=== PATIENT | female | born 1965 | race Caucasian/White ===

== ENCOUNTER 2020-12-08 15:31 | Inpatient (IN) | payer MEDICARE, MEDICAID, SELFPAY ==
[2020-12-08 16:18] VITALS: BP 166/89; PULSE 83; RESP 18; TEMP 37; O2SAT 99; BMI 22.3
[2020-12-08 18:03] VITALS: BP 178/93; PULSE 89; RESP 24; O2SAT 100
--- NOTE | 2020-12-08 18:03 | ED.RN ---
PT C/O NUMBNESS AND TINGLING TO BOTH LEGS AND FEET
--- NOTE | 2020-12-08 18:13 | CT_ITS ---
STUDY: CTA HEAD AND NECK WITH CONTRAST REASON FOR EXAM: Female, 55 years old. Cephalgia, neck pain RADIATION DOSAGE (If Supplied By Facility): CTDIvol = ( 26.99 ) mGy, DLP = ( 1566.47 ) mGycm TECHNIQUE: CT angiography was performed with a multi-detector CT scanner. Data acquisition was obtained from the skull base through the vertex following intravenous administration of IV 100mL Isovue-370. MIP images were reconstructed from the axial data set. Post-processing of the angiographic images was performed, with multiplanar reformation and 3D reconstruction. Individualized dose optimization techniques were used for this CT. COMPARISON: No relevant priors. FINDINGS: Motion artifact degrades anatomic detail. Normal bilateral petrous carotid arteries. Normal right cavernous carotid artery with a normal supraclinoid bifurcation. Normal left cavernous carotid artery with a normal supraclinoid bifurcation. Normal right A1 segments of the anterior cerebral artery. Normal left A1 segments of the anterior cerebral artery. Normal intact anterior communicating artery (ACOM). Normal bilateral A2 segments of the anterior cerebral arteries. Normal right M1 and M2 segments of the middle cerebral arteries, with a normal M1 bifurcation. Normal left M1 and M2 segments of the middle cerebral arteries, with a normal M1 bifurcation. Normal right posterior communicating artery (PCOM). Normal left posterior communicating artery (PCOM). Normal bilateral vertebral arteries. Normal basilar artery with a normal basilar bifurcation. The visualized bilateral superior cerebellar (SCA) arteries are normal. Normal bilateral P1, P2 and visualized P3 segments of the posterior cerebral arteries. There is no demonstrated aneurysm of the [place]. There is no demonstrated abnormality of the visualized brain. AORTIC ARCH: Normal visualized aortic arch. Normal origins of the brachiocephalic, left common carotid, and left subclavian arteries. RIGHT CAROTID ARTERIES: Normal right common carotid artery (CCA). Normal right common carotid bulb. Normal origin of the right internal carotid (ICA) artery without a hemodynamically significant stenosis. Normal visualized cervical portion of the right internal carotid artery. Normal origin of the right external carotid artery (ECA). LEFT CAROTID ARTERIES: Normal left common carotid artery (CCA). Normal left common carotid bulb. Normal origin of the left internal carotid (ICA) artery without a hemodynamically significant stenosis. Normal visualized cervical portion of the left internal carotid artery. Normal origin of the left external carotid artery (ECA). VERTEBRAL ARTERIES: Normal bilateral vertebral arteries. CT/CTA Head AND Neck W/ Contrast IMPRESSION: Within normal limits CTA Head and neck with contrast. Electronically Signed: Maranda Galloway MD at 20:26 EDT Tel , Service support ,
--- NOTE | 2020-12-08 18:13 | EKG12_ITS ---
Test Reason : BODY ACHES/BP Blood Pressure : / mmHG Vent. Rate : 080 BPM Atrial Rate : 080 BPM P-R Int : 142 ms QRS Dur : 080 ms QT Int : 398 ms P-R-T Axes : 061 019 038 degrees QTc Int : 459 ms Normal sinus rhythm Consider Left ventricular hypertrophy Poor R wave progression Abnormal ECG Confirmed by FALGUNI SUAREZ, KARLA ([id number]), book editor MERCEDES PHELPS ([id number]) on 12/11/2020 12:58:06 PM Referred By: JUNIE Confirmed By:KARLA MONTES DE OCA MD
--- NOTE | 2020-12-08 18:15 | EX.ED.VIS.HA ---
HPI History of Present Illness Chief Complaint: Headache Detail of Chief Complaint: Headache that started yesterday. Informant: patient Narrative Narrative: Patient presents to the emergency department complaint of a headache that started yesterday. Patient states is been continuous since yesterday somewhat diffuse and into her neck. Patient states that she lifted some pop about 2 weeks ago and strained her shoulder and she is been having pain in her neck and numbness in the fourth and fifth finger since that time. Patient was sent for outpatient x-rays of her shoulder and neck yesterday but no results as of yet. Patient has remote history of migraines. She does complain of photophobia. Patient presented via EMS today and was noted to be quite hypertensive and she was having dry heaves and vomiting. Patient denies falls or head injuries. She denies recent illness. Prior similar symptoms: No PFSH PFSH Allergy/AdvReac Type Severity Reaction Status Date / Time No Known Allergies Allergy Verified 12/08/20 16:21 Social History Smoking Status: Former smoker ROS ROS ED Constitutional Constitutional ED: Reports systems reviewed and no addt'l complaints, except as documented; Denies body ache(s), change in weight or chills Eyes Eyes: Denies acute decrease in peripheral vision, change in vision, double vision or loss of vision ENT ENT ED: Reports none; Denies ear pain, lip swelling, loss taste/smell, neck pain, otalgia or sore throat Cardiovascular Cardiovascular: Reports none; Denies abdominal pain, chest pain with activity, leg edema, lightheadedness, palpitations, rapid heart rate or syncope Respiratory/Chest Respiratory/Chest: Reports none; Denies change in mental status, dry cough, dyspnea, hemoptysis, shortness of breath at rest or shortness of breath with exertion Gastrointestinal Gastrointestinal: Reports none; Denies abdominal pain, change in stool character, diarrhea, hematemesis, hematochezia, melena, rectal bleeding or vomiting Genitourinary Genitourinary ED: Reports none; Denies abdominal discomfort, anuria, dysuria, genital pain or polyuria Musculoskeletal Musculoskeletal: Reports none and neck pain; Denies arthralgias, back pain, difficulty walking, extremity pain, muscle weakness or myalgias Integumentary Reports none; Denies abscess or rash Neurologic Neurologic: Reports none, headache(s) and paresthesias; Denies abnormal gait, confusion, focal weakness, frequent falls, loss of vision, numbness, radicular pain, vertigo or weakness Psychiatric Psychiatric: Reports systems reviewed and no addt'l complaints, except as documented and none; Denies behavioral changes, confusion, difficulty concentrating, hallucinations, suicidal ideation, tactile hallucinations or visual hallucinations Endocrine Endocrinology: Denies none, cold intolerance, excessive sweating, fatigue or heat intolerance Hematologic/Lymphatic Hematologic/Lymphatic: Reports none; Denies anemia, easy bleeding or easy bruising Allergic/Immunologic Allergic/Immunologic ED: Denies as per HPI, none, lip swelling, mouth swelling, throat swelling, tongue swelling or hives EXAM Physical Exam Const Vital Signs: 12/08/20 16:18 12/08/20 18:03 Temperature 98.6 F Temperature Source Temporal Pulse Rate 83 89 Respiratory Rate 18 24 H Blood Pressure 166/89 H 178/93 H Blood Pressure Mean 114 121 Pulse Ox 99 100 Oxygen Delivery Method Room Air Room Air Positive well nourished and well developed General Appearance ED: well developed and NAD HEENT Reports TM's clear and moist mucous membranes normocephalic and atraumatic; Negative for trauma or tenderness Tympanic Membrane ED: Yes TM's clear Eyes PERRL and EOMs intact bilaterally General Eye ED: Negative for pale conjunctiva or scleral icterus Neck no lymphadenopathy, supple and no JVD Neck Narrative: Patient has some diffuse tenderness over the C-spine and cervical paraspinal musculature bilaterally. General: tenderness Chest Wall inspection of chest normal and palpation of chest normal Chest: Negative for tenderness Resp normal respiratory effort and clear to auscultation bilaterally Effort and Inspection: Negative for respiratory distress or pain with movement Auscultation: Negative for rhonchi, wheezes or diminished lung sounds Cardio regular rate, regular rhythm, S1 normal heart sound, S2 normal heart sound and no murmurs Peripheral Pulses: pulses 2+ throughout GI normal to inspection, nondistended, normoactive bowel sounds, soft to palpation, non-tender, non-distended and no masses Back/Spine no CVA tenderness and no thoracic nor lumbar tenderness Extremity normal to inspection General Extremety ED: Negative for edema General Extremity: Negative for edema Neuro oriented x3, CN's II-XII intact bilaterally, no sensory deficits noted and gait normal Neuro Narrative: Finger-nose and heel garcia testing within normal limits, negative Romberg, negative for drift, fundi benign Sensorium / Orientation: awake, alert, oriented to person, oriented to place and oriented to time Motor Exam: strength 5/5 throughout and strength abnormal Psych mental status grossly normal Skin no rashes or lesions noted and no wounds MDM MDM MDM Narrative Medical decision making narrative: IV line established on arrival. Patient was medicated with Reglan, Benadryl, Toradol, and a liter of fluid. Initially her headache did improve but now is starting to return again and currently rates it a 4 5 out of 10. Her blood pressure continues to remain elevated with systolics in the 190s and diastolics in the low 100s. Patient was started on labetalol 20 mg IV. Case will be discussed with hospitalist evaluate for admission. I suspect her white blood cell count likely is elevated due to recent steroid usage. Patient just finished her steroids after being on it for 15 days. The pain in her neck may be related to radiculopathy with paresthesias in the right arm. Patient may need further imaging such as possibly MRI to evaluate further. Lab Data Attestation: I reviewed the patient's lab results. Labs: Laboratory Results - last 24 hr 12/08/20 12/08/20 18:43 18:43 WBC 20.2 H RBC 4.32 Hgb 12.2 Hct 38.9 MCV 90.0 MCH 28.2 MCHC 31.4 L RDW Std Deviation 47.8 H RDW Coeff of Ankit 14.4 Plt Count 249 MPV 11.0 Immature Gran % (Auto) 0.500 Neut % (Auto) 88.3 H Lymph % (Auto) 5.9 L [place] % (Auto) 4.9 Eos % (Auto) 0.1 Baso % (Auto) 0.3 Absolute Neuts (auto) 17.8 H Absolute Lymphs (auto) 1.18 Nucleated RBC % 0 Sodium 136 Potassium 3.7 Chloride 105 Carbon Dioxide 25.0 Anion Gap 6 BUN 17 Creatinine 0.50 L Estim Creat Clear Calc 111.07 Est GFR (MDRD) Af Amer 163 Est GFR (MDRD) Non-Af 135 BUN/Creatinine Ratio 33.7 H Glucose 128 H Calcium 9.3 Troponin I High Sens 11 Radiography Diagnostic Testing: Radiology Impression Head/Neck CTA 12/08/20 18:13 IMPRESSION: Within normal limits CTA Head and neck with contrast. Electronically Signed: Maranda Galloway MD at 20:26 EDT Tel , Service support , EKG Initial EKG: Attestation: I personally reviewed and interpreted this EKG as follows: Comments: Sinus rhythm with a ventricular rate of 80 bpm with LVH Discharge Plan Dx/Rx/DC Orders Clinical Impression: Cephalalgia, Hypertension, Acute neck pain, Cervical radiculopathy Disposition Disposition: Acute Care [facility]
[2020-12-08 18:57] LABS: Absolute Lymphocyte Count 1.18 X10^3/uL (0.83-4.51); Absolute Neutrophil Count 17.8 X10^3/uL (2.0-7.7); Basophil# 0.07 X10^3/uL; Basophil% 0.3 % (0-1); Eosinophil# 0.03 X10^3/uL; Eosinophils% 0.1 % (0-5); Hematocrit 38.9 % (37-47); Hemoglobin 12.2 g/dL (12.0-15.0); Lymphocyte # 1.18 X10^3/ul (0.83-4.51); Lymphocyte % 5.9 % (19-41); Mean Corp Hgb Conc 31.4 g/dL (32-36); Mean Corpuscular Hgb 28.2 pg (27.0-32.0); Monocyte# 0.99 X10^3/uL; Monocyte% 4.9 % (0-10); NRBC Flagged by Analyzer 0 % (0-5); Neutrophil # 17.78 X10^3/uL (2.7-7.7); Neutrophil % 88.3 % (47-70); Platelet Count 249 K/mm3 (150-450); RBC Distribution Width CV 14.4 % (11.6-14.6); RBC Distribution Width SD 47.8 fl (35.1-43.9); Red Blood Count 4.32 M/mm3 (4.2-5.4); White Blood Count 20.2 K/mm3 (4.4-11.0)
[2020-12-08] MEDS: Ketorolac 15 MG/ML Vial IV (19:00)
[2020-12-08] MEDS: DiphenhydrAMINE 50 MG/ML Syringe 25 MG IV (19:00)
[2020-12-08] MEDS: Metoclopramide 10 MG/2 ML Vial IV (19:01)
[2020-12-08 19:11] LABS: Anion Gap 6 (5-15); BUN 17 mg/dL (7-18); BUN/Creat Ratio 33.7 RATIO (10-20); Calcium,Total 9.3 mg/dL (8.5-10.1); Chloride 105 mmol/L (98-107); EST Glomerular Filtration Rate 135 mL/min (>60); Est Glom Filt Rate - Afr Amer 163 mL/min (>60); Estimated Creatinine Clearance 111.07 ml/min; Glucose 128 mg/dL (74-106); Potassium 3.7 mmol/L (3.5-5.1); Sodium Level 136 mmol/L (136-145); Troponin-I HS 11 pg/mL (3.0-54.0)
--- NOTE | 2020-12-08 20:56 | PCM.HP.STD ---
HPI - General General Date of Admission: 12/08/20 Date of Service: 12/08/20 Chief Complaint: Headache, light and sound sensitivity associated HPI Narrative The patient is a 55 y/o F w/ PMHx: Anxiety and Depression, Hx Migraines, Chronic COPD, Former Heavy Tobacco use, Hx Vulvar Dysplasia who presents to the [facility] ED on 12/08/20 with history of onset headache starting the day prior, continuous, diffuse radiating into her neck noting that she had actually lifted some heavy cans of pop approximately 2 weeks ago and at that time it felt as though she strained her neck and shoulder with onset of numbness into the 4th and 5th finger since that time with outpatient ongoing evaluation with plain film of the shoulder neck the day prior but unclear results with phonophobia and photophobia associated in addition to nausea, emesis and elevated blood pressures during this timeline. She was recently placed on steroids of note. Patient reports that she has had a history of migraines prior primarily posterior and on the top, throbbing in nature with photophobia and phonophobia similar to current status although this is more severe and has been many years since her last migraine. Work-up in the ED included T 98.6, heart rate 83, BP 166/89, respiratory rate 18, 99% on room air, CBC with WBC 20.2, hemoglobin 12.2, platelet 249 with a left shift, BMP with glucose 128 otherwise not marked appearing, high-sensitivity troponin XI, CTA head and neck unremarkable with no acute intracranial findings and no evidence of significant stenosis or dissection. In the ED patient ministered Reglan, labetalol 20 mg IV x1, Toradol, Benadryl and morphine. [facility] Medical History (Updated 12/09/20 @ 04:[address] Юлия Miranda MD) Anemia Anxiety Cancer COPD (chronic obstructive pulmonary disease) Depression Former smoker Intractable migraine Kidney stones Migraines Osteoporosis Home Medications escitalopram oxalate 20 mg PO DAILY 12/08/20 [History Last Taken 12/08/20] hydrocodone-acetaminophen 1 tab PO Q8H PRN PRN 12/08/20 [History Last Taken 12/08/20] hydroxyzine HCl 25 mg PO TID PRN PRN 12/08/20 [History Last Taken 12/08/20] tizanidine 4 mg PO TID PRN 12/08/20 [History Last Taken Unknown] Allergy/AdvReac Type Severity Reaction Status Date / Time No Known Allergies Allergy Verified 12/08/20 16:21 adopted Surgical History (Updated 12/09/20 @ 04:[address] Юлия Miranda MD) History of back surgery History of vulvectomy S/P breast lumpectomy Social History (Updated 12/09/20 @ 04:[address] Юлия Miranda MD) household members: children Smoking Status: Former smoker how long ago did patient quit smoking: Quit July 2020, smoked prior 1-2 ppd cigarette tobacco use since teen. alcohol intake: never substance use type: does not use ROS ROS Narrative Admission Review of Systems: CONSTITUTIONAL: No weight loss, fever, chills, + weakness or fatigue. HEENT: + Photophobia, phonophobia migraine. Eyes: No visual loss, blurred vision, double vision or yellow sclerae. Ears, Nose, Throat: No hearing loss, sneezing, congestion, runny nose or sore throat. SKIN: No rash or itching, lesions, wounds. CARDIOVASCULAR: No chest pain, chest pressure or chest discomfort, palpitations, edema, orthopnea, syncopal events. RESPIRATORY: No shortness of breath, cough or sputum, wheezing, hemoptysis. GASTROINTESTINAL: No anorexia, nausea, vomiting or diarrhea, abdominal pain, melena, BRBPR. GENITOURINARY: No dysuria, frequency, urgency or retention. NEUROLOGICAL: + Migraine headache with photophobia and phonophobia, right-sided radiculopathy with digit paresthesia, No dizziness, syncope, paralysis, ataxia, focal weakness, change in bowel or bladder control, seizure. MUSCULOSKELETAL: No muscle, back pain, joint pain or stiffness. HEMATOLOGIC: + anemia, bleeding or bruising. LYMPHATICS: No enlarged nodes. No history of splenectomy. PSYCHIATRIC: + history of depression or anxiety. ENDOCRINOLOGIC: No reports of sweating, cold or heat intolerance. No polyuria or polydipsia. ALLERGIES: No history of asthma, hives, eczema or rhinitis. Vital Signs Vital Signs Vital Signs: 12/08/20 16:18 12/08/20 18:03 Temperature 98.6 F Temperature Source Temporal Pulse Rate 83 89 Respiratory Rate 18 24 H Blood Pressure 166/89 H 178/93 H Blood Pressure Mean 114 121 Pulse Ox 99 100 Oxygen Delivery Method Room Air Room Air Weight Weight: 130 lb Body Mass Index (BMI) 22.3 Physical Exam Narrative Physical Examination: General: Awake, alert, oriented x 3 and cooperative, laying in the ED bed, room dark, fatigued appearing. Skin: Normal color, normal turgor, no icterus, no cyanosis. HEENT: AT/NC, EOMI, PERRLA, dry MM, no carotid bruits or JVD noted. Lungs: Diminished, greater bases, moderate effort, no rales, ronchi or wheezing. Heart: Regular rate and rhythm; no gallop, rub audible. Abdomen: Soft, NTTP, ND, normal BS, no HSM. Extremities: No cyanosis, clubbing, or edema. Neurological: Patient awake, alert, oriented as noted, cognitive function intact; pupils equally reactive to light and accommodation, cranial nerves II-XII grossly normal, moving all 4 extremities, no focal deficits, strength moderately global decrease secondary to acute presentation. Psychiatric: Affect appears fatigued, uncomfortable appearing, no acute evidence of depressive or anxiety feelings. Results Lab / Micro Data Result Diagrams: 12/08/20 18:43 12/08/20 18:43 Labs: Laboratory Results - last 24 hr 12/08/20 18:43: WBC 20.2 H, RBC 4.32, Hgb 12.2, Hct 38.9, MCV 90.0, MCH 28.2, MCHC 31.4 L, RDW Std Deviation 47.8 H, RDW Coeff of Ankit 14.4, Plt Count 249, MPV 11.0, Immature Gran % (Auto) 0.500, Neut % (Auto) 88.3 H, Lymph % (Auto) 5.9 L, [place] % (Auto) 4.9, Eos % (Auto) 0.1, Baso % (Auto) 0.3, Absolute Neuts (auto) 17.8 H, Absolute Lymphs (auto) 1.18, Nucleated RBC % 0 12/08/20 18:43: Sodium 136, Potassium 3.7, Chloride 105, Carbon Dioxide 25.0, Anion Gap 6, BUN 17, Creatinine 0.50 L, Estim Creat Clear Calc 111.07, Est GFR (MDRD) Af Amer 163, Est GFR (MDRD) Non-Af 135, BUN/Creatinine Ratio 33.7 H, Glucose 128 H, Calcium 9.3, Troponin I High Sens 11 Radiology Impression Head/Neck CTA 12/08/20 18:13 IMPRESSION: Within normal limits CTA Head and neck with contrast. Electronically Signed: Maranda Galloway MD at 20:26 EDT Tel , Service support , Assessment & Plan Assessment/Plan (1) Cervical radiculopathy: (2) Intractable migraine: QUALIFIERS: Migraine type: unspecified Status migrainosus presence: with status migrainosus Qualified Code(s): G43.911 - Migraine, unspecified, intractable, with status migrainosus PLAN: The patient is a 55 y/o F w/ PMHx: Anxiety and Depression, Hx Migraines, Chronic COPD, Former Heavy Tobacco use, Hx Vulvar Dysplasia who presents to the [facility] ED on 12/08/20 with history of onset headache starting the day prior, continuous, diffuse radiating into her neck with onset of photophobia, phonophobia, nausea, emesis and elevated blood pressures with incidentally recently noted paresthesias to the fourth and fifth digits following heavy lifting weeks prior. 1. Acute Persistent Intractable Migraine: Will admit to medical surgical floor, hold narcotic therapy give this may exacerbate migraine, initiate IV VPA 500mg Q6 hours, IV Decadron 4mg Q6 hours, IV Toradol 30mg every 8x5 doses in addition to oral Neurontin 100 3 times daily with meals initially with escalation as needed. Given timeline remotely of prior migraine and significant presentation will plan to obtain MRI of the brain as well as cervical MRI given reported history of atypical paresthesias in addition. If patient significantly improves then could consider discharge to home on Depakote ER 500 nightly, Neurontin regimen x1 week, Medrol Dosepak as well as as needed Imitrex with neurology follow-up. 2. Paresthesias, suspicion for Cervical Radiculopathy: Possible associated with recent acute presentation #1 secondary to discomfort, pain, pending MRI brain and cervical spine as noted, continue treatment as noted above. 3. Elevated BP without HTN diagnosis: Suspected secondary to pain with #1, #2, will continue treatment as noted and monitor BPs, if appropriate will add oral regimen, PRN IV hydralazine in the interim. Maintain on telemetry given notable elevations. 4. Chronic COPD: Patient is on any routine inhalers, PRN albuterol, HOB, IS parameters. 5. Former heavy tobacco use: Encourage continued tobacco cessation, quit in July with prior to this 1 to 2 pack/day since she been a teenager. 6. History of vulvar dysplasia: Patient with partial vulvectomy with repeat surgery recently and per pathology need for return per discussion with patient. 7. Anxiety and depression: We will continue patient home escitalopram regimen. 8. DVT prophylaxis: SCDs, Lovenox. Charges/Coding Visit Charges Inpatient E&M: 73630 Init Hosp L3
[2020-12-08] MEDS: Morphine 4 MG/ML Syringe IV (21:10)
[2020-12-08] MEDS: Labetalol (Prefilled) 20 MG/4 ML IV (21:10)
[2020-12-08 21:24] VITALS: BP 187/99; PULSE 84; PULSE 85; RESP 12; TEMP 36.6; O2SAT 94
--- NOTE | 2020-12-08 21:40 | ED.RN ---
Localized rash after Morphine was given. PT educated, ice pack applied.
[2020-12-08 21:59] VITALS: BP 144/83; PULSE 83; RESP 18; O2SAT 97
--- NOTE | 2020-12-08 22:30 | PCS.PANDOC ---
PANDEMIC DOCUMENTATION INITIATED: Date: 12/08/2020 Time: 2229
[2020-12-08 22:36] VITALS: BMI 22.3
[2020-12-08 22:46] VITALS: BP 179/91; PULSE 83; RESP 16; TEMP 36.9; O2SAT 99
[2020-12-08] MEDS: dexAMETHasone 4 MG/ML Vial IV (23:06)
[2020-12-08] MEDS: Famotidine 20 MG Tablet PO (23:06)
[2020-12-08] MEDS: Gabapentin 100 MG Capsule PO (23:06)
[2020-12-08] MEDS: Ketorolac 30 MG/ML Syringe IV (23:06)
[2020-12-08] MEDS: 0.9% Normal Saline 1,000 ML 500 ML IV (23:15)
[2020-12-08] MEDS: 0.9% Normal Saline 1,000 ML 150 ML IV (23:21)
[2020-12-08 23:58] LABS: Troponin-I HS 25 pg/mL (3.0-54.0)
[2020-12-09] VITALS (12 sets, daily range): BP systolic 158–174; BP diastolic 90–92; PULSE 86–125; RESP 16–18; TEMP 36.9–37.3; O2SAT 96–99
[2020-12-09 01:58] LABS: Troponin-I HS 22 pg/mL (3.0-54.0)
[2020-12-09] MEDS: Ketorolac 30 MG/ML Syringe IV ×3 (05:53→21:11)
[2020-12-09] MEDS: dexAMETHasone 4 MG/ML Vial IV ×4 (05:53→23:14)
[2020-12-09] MEDS: 0.9% Saline Lock 10 ML Syringe IV ×4 (05:54→23:14)
--- NOTE | 2020-12-09 05:55 | MRI_ITS ---
STUDY: MRI CERVICAL SPINE WITHOUT CONTRAST REASON FOR EXAM: Female, 55 years old. Radiculopathy TECHNIQUE: Standardized fat and water weighted pulse sequences were obtained in the sagittal and axial planes. COMPARISON: None FINDINGS: Normal foramen magnum and brainstem-cervical cord junction. Normal craniovertebral junction. Normal anterior atlantoaxial articulation. Normal odontoid process. There is straightening of the normal cervical lordosis. Normal vertebral bodies and posterior osseous elements. C2-3: Normal endplates. Normal disc height, signal and morphology. Normal central canal and intervertebral neural foramina. C3-4: Normal endplates. Normal disc height, signal and morphology. Normal central canal and intervertebral neural foramina. C4-5: Normal endplates. Normal disc height, signal and morphology. Normal central canal and intervertebral neural foramina. C5-6: Mild broad disc osteophyte complex produces mild spinal stenosis. No neural foraminal stenosis. C6-7: Mild bilobed disc osteophyte complex produces mild spinal stenosis. No neural foraminal stenosis. C7-T1: Moderate size right paracentral and preforaminal disc protrusion produces moderate spinal stenosis with abutment of the right hemicord and mild right neural foraminal stenosis. Normal cervical cord. Normal visualized soft tissue structures. MRI/Spine Cervical (Routine) IMPRESSION: Multilevel degenerative changes, as described above. Electronically Signed: Les Reyes MD at 14:48 EDT Tel , Service support ,
--- NOTE | 2020-12-09 05:55 | MRI_ITS ---
STUDY: MRI BRAIN WITHOUT CONTRAST REASON FOR EXAM: Female, 55 years old. migraine TECHNIQUE: Standardized multiplanar fat and water weighted pulse sequences were obtained. COMPARISON: None. FINDINGS: Normal size of the ventricles and extra-axial spaces for the patient''s age. Normal white matter tracts of the supratentorial brain. Subtle hyperintensity of multiple gyri of the superior parietal lobes which may represent encephalitis, best seen on inversion recovery weighted image 20.. There is no evidence for recent intracranial ischemia or other cause of cytotoxic edema on diffusion weighted imaging (DWI). Normal T2* images of the brain without demonstrated susceptibility artifact. There is no demonstrated hemosiderin stain. Normal bilateral basal ganglia. Normal thalami. There is no extra-axial fluid accumulation. Normal flow voids within the major intracranial circulation suggesting patency by spin echo criteria. Normal sella turcica, pituitary gland, infundibular stalk, optic chiasm and hypothalamus. Normal tectal plate and pineal gland. Normal midbrain, demetrius and medulla. Normal cerebellum. Normal basal cisterns. Normal bilateral temporal bones. Normal bilateral internal auditory canals. No demonstrated orbital abnormality, within the constraints of a routine brain study. Normal visualized paranasal sinuses. Normal calvarium and skull base. Normal visualized soft tissue structures. Normal visualized upper cervical spine. 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 Electronically Signed: Les Reyes MD at 14:44 EDT Tel , Service support ,
[2020-12-09] MEDS: hydrALAZINE 20 MG/ML Vial 10 MG IV ×2 (05:58→17:13)
[2020-12-09 06:24] LABS: Absolute Lymphocyte Count 0.36 X10^3/uL (0.83-4.51); Basophil# 0.02 X10^3/uL; Basophil% 0.2 % (0-1); Hematocrit 36.9 % (37-47); Hemoglobin 11.5 g/dL (12.0-15.0); Lymphocyte # 0.36 X10^3/ul (0.83-4.51); Lymphocyte % 3.1 % (19-41); Mean Corp Hgb Conc 31.2 g/dL (32-36); Mean Corpuscular Hgb 28.5 pg (27.0-32.0); Mean Corpuscular Volume 91.3 fL (81-99); Monocyte# 0.09 X10^3/uL; Monocyte% 0.8 % (0-10); NRBC Flagged by Analyzer 0 % (0-5); Neutrophil # 11.04 X10^3/uL (2.7-7.7); Neutrophil % 95.4 % (47-70); POSITIVE DIFFERENTIAL YES; Platelet Count 251 K/mm3 (150-450); RBC Distribution Width CV 14.7 % (11.6-14.6); RBC Distribution Width SD 49.9 fl (35.1-43.9); Red Blood Count 4.04 M/mm3 (4.2-5.4); White Blood Count 11.6 K/mm3 (4.4-11.0)
[2020-12-09 06:45] LABS: Differential Indicated SCAN CRITERIA MET
[2020-12-09 06:57] LABS: AST(SGOT) 28 U/L (15-37); Alanine Aminotransfer ALT/SGPT 30 U/L (13-56); Albumin, Serum 3.5 g/dL (3.2-5.0); Alkaline Phosphatase 109 U/L (45-117); Anion Gap 6 (5-15); BUN 12 mg/dL (7-18); BUN/Creat Ratio 15.5 RATIO (10-20); Calcium,Total 9.1 mg/dL (8.5-10.1); Chloride 108 mmol/L (98-107); Creatinine, Serum 0.78 mg/dL (0.55-1.02); EST Glomerular Filtration Rate 82 mL/min (>60); Est Glom Filt Rate - Afr Amer 100 mL/min (>60); Globulin 3.5 g/dL (2.2-4.2); Glucose 158 mg/dL (74-106); Potassium 4.8 mmol/L (3.5-5.1); Sodium Level 139 mmol/L (136-145); Troponin-I HS 20 pg/mL (3.0-54.0)
[2020-12-09 07:16] LABS: Differential Comment SCANNED
--- NOTE | 2020-12-09 10:05 | NURSING ---
pt to MRI
--- NOTE | 2020-12-09 10:45 | NURSING ---
pt remains off unit in MRI
[2020-12-09] MEDS: Gabapentin 100 MG Capsule PO ×2 (11:17→17:03)
[2020-12-09] MEDS: 0.9% Normal Saline 1,000 ML 150 ML IV (11:17)
[2020-12-09] MEDS: Enoxaparin 40 MG/0.4 ML Syringe SC (11:17)
[2020-12-09] MEDS: Famotidine 20 MG Tablet PO ×2 (11:18→21:13)
--- NOTE | 2020-12-09 11:33 | NURSING ---
@ 11:15. pt returned from MRI
--- NOTE | 2020-12-09 12:40 | CASEMGMT ---
ROYAL KAN assessment: Face to Face with patient for initial transition planning/care coordination assessment. ROYAL KAN introduced self and role at [facility], pt voices understanding and consents to assessment. Pt is sitting up in bed in no distress. Pt is A/Ox4 and answers all questions appropriately. Care providers, pharmacy, and demographics verified. Presentation: Pt started with migraine last pm, sensitive to light Admitting dx: Migraine, intractable PCP: Gricel Specialists: Johanne, pain management; Zaire onc at [facility] Preferred Pharmacy: [facility] Insurance: [employer] Prescription Benefit: [employer] Living Will/HPOA: Pt states does not have LW/HPOA and declines AD info. LNOK: Teresita Hurst, daughter Living Arrangements: Pt states lives with adult son who has CP in 1 story home and states no concerns at home. Pt states is independent with ADL's. Transportation: Pt states drives self and states no transportation concerns. DME/HHC: Pt states no current DME or need for any further DME. Pt states no hx of HHC or SNF in the past. Pt states no concerns with going home at time of discharge. Pt is on disability. Pt states quit smoking cigarettes in July and occasionally drinks ETOH. Pt states no further concerns/needs. CM to follow for any further discharge planning/needs. Advised pt to ask for CM if any further questions/concerns/needs arise, voices understanding. Pt Goal: Home Plan: [place] ROYAL KAN
--- NOTE | 2020-12-09 15:43 | PN.HOSP_ITS ---
Subjective Subjective Patient was seen and examined today, MRI of the brain was read out as showing encephalitis of the parietal lobes, I have requested that another radiologist over read this MRI. MRI of the cervical spine shows evidence of degenerative disc disease most severe at C7-T1 with a disc protrusion at that level. Patient still has a headache at this time, her blood pressure has also been elevated. I have decided to place the patient on a small dose of blood pressure medication. Objective Data Objective Data Vital Signs: Vital Signs Temp Pulse Resp BP Pulse Ox 99.1 F 86 18 172/91 H 98 12/09/20 11:41 12/09/20 11:41 12/09/20 11:41 12/09/20 11:41 12/09/20 11:41 Oxygen Delivery Method Room Air Weight: 58.967 kg Body Mass Index (BMI) 22.3 Intake & Output: Intake and Output for Last 24 Hours 12/07/20 12/08/20 12/09/20 23:59 23:59 23:59 Intake Total 50 / 50 1815.0 / 1815.0 Balance 50 / 50 1815.0 / 1815.0 Lab / Micro Data Result Diagrams: 12/09/20 05:25 12/09/20 05:25 Labs: Laboratory Results - last 24 hr 12/08/20 18:43: WBC 20.2 H, RBC 4.32, Hgb 12.2, Hct 38.9, MCV 90.0, MCH 28.2, MCHC 31.4 L, RDW Std Deviation 47.8 H, RDW Coeff of Ankit 14.4, Plt Count 249, MPV 11.0, Immature Gran % (Auto) 0.500, Neut % (Auto) 88.3 H, Lymph % (Auto) 5.9 L, [place] % (Auto) 4.9, Eos % (Auto) 0.1, Baso % (Auto) 0.3, Absolute Neuts (auto) 17.8 H, Absolute Lymphs (auto) 1.18, Nucleated RBC % 0 12/08/20 18:43: Sodium 136, Potassium 3.7, Chloride 105, Carbon Dioxide 25.0, A nion Gap 6, BUN 17, Creatinine 0.50 L, Estim Creat Clear Calc 111.07, Est GFR (MDRD) Af Amer 163, Est GFR (MDRD) Non-Af 135, BUN/Creatinine Ratio 33.7 H, Glucose 128 H, Calcium 9.3, Troponin I High Sens 11 12/08/20 23:20: Troponin I High Sens 25 12/09/20 01:30: Troponin I High Sens 22 12/09/20 05:25: WBC 11.6 H, RBC 4.04 L, Hgb 11.5 L, Hct 36.9 L, MCV 91.3, MCH 28.5, MCHC 31.2 L, RDW Std Deviation 49.9 H, RDW Coeff of Ankit 14.7 H, Plt Count 251, MPV 11.0, Immature Gran % (Auto) 0.500, Neut % (Auto) 95.4 H, Lymph % (Auto) 3.1 L, [place] % (Auto) 0.8, Eos % (Auto) 0.0, Baso % (Auto) 0.2, Absolute Neuts (auto) 11.0 H, Absolute Lymphs (auto) 0.36 L, Nucleated RBC % 0, Differential Comment SCANNED 12/09/20 05:25: Sodium 139, Potassium 4.8, Chloride 108 H, Carbon Dioxide 25.0, Anion Gap 6, BUN 12, Creatinine 0.78, Estim Creat Clear Calc 71.20, Est GFR (MDRD) Af Amer 100, Est GFR (MDRD) Non-Af 82, BUN/Creatinine Ratio 15.5, Glucose 158 H, Calcium 9.1, Total Bilirubin 0.50, AST 28, ALT 30, Alkaline Phosphatase 109, Troponin I High Sens 20, Total Protein 7.0, Albumin 3.5, Globulin 3.5, Albumin/Globulin Ratio 1.0 Radiography Diagnostic Testing: Radiology Impression Head/Neck CTA 12/08/20 18:13 IMPRESSION: Within normal limits CTA Head and neck with contrast. 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 Electronically Signed: Les Reyes MD at 14:44 EDT Tel , Service support , Cervical Spine MRI 12/09/20 05:55 IMPRESSION: Multilevel degenerative changes, as described above. Electronically Signed: Les Reyes MD at 14:48 EDT Tel , Service support , Physical Exam Const alert, oriented x3, no apparent distress and healthy appearing General Appearance: cooperative, well kempt and well developed Orientation / Consciousness: awake, oriented to person, oriented to place and oriented to time HEENT normocephalic, head/scalp atraumatic and moist oral mucous membranes Head and Scalp: normocephalic Eyes PERRL, EOMs intact bilaterally and conjunctivae normal Neck nuchal rigidity, supple, no JVD, thyroid normal and no carotid bruits General: trachea midline Resp normal respiratory effort, no retractions, no use of accessory muscles and clear to auscultation bilaterally Auscultation: Negative for rales, rhonchi or wheezes Cardio regular rate, regular rhythm, S1 normal heart sound, S2 normal heart sound, no murmurs, no rub and no gallops GI normal to inspection, nondistended, normoactive bowel sounds, soft to palpation, non-tender and non-distended Extremity no clubbing, cyanosis or edema Skin no rashes or lesions noted General Skin Exam: no breakdown Neuro oriented x3, CN's II-XII intact bilaterally, no focal motor deficits and no sensory deficits noted Sensorium / Orientation: awake and alert Speech: speech normal Psych thought process normal and affect normal Assessment & Plan Assessment/Plan (1) Cephalalgia: PLAN: 1. Migraine cephalgia-patient will continue present treatment, I do not believe the patient has clinical viral or bacterial encephalitis #2 degenerative disc disease of cervical spine-patient states she sees pain management #3 essential hypertension-I have decided to place the patient on metoprolol 25 mg twice daily, this may help her migraine cephalgia. Charges/Coding Visit Charges Inpatient E&M: 78305 Subs Hosp L2
[2020-12-09] MEDS: Metoprolol Tartrate 25 MG Tablet PO ×2 (17:03→21:13)
[2020-12-09] MEDS: Ondansetron 4 MG/2 ML Vial IV (17:13)
[2020-12-09] MEDS: Acetaminophen 325 MG Tablet 650 MG PO (17:16)
--- NOTE | 2020-12-09 17:36 | NURSING ---
updated pts daughter by phone after pt requested i call her
[2020-12-09] MEDS: Temazepam 15 MG Capsule PO (21:13)
[2020-12-09] MEDS: proMETHazine 25 MG/ML Syringe 12.5 MG IM (23:41)
[2020-12-10] VITALS (7 sets, daily range): BP systolic 134–166; BP diastolic 86–95; PULSE 88–102; RESP 16–18; TEMP 36.7–37.4; O2SAT 97–98
[2020-12-10] MEDS: hydrALAZINE 20 MG/ML Vial 10 MG IV (05:57)
[2020-12-10] MEDS: 0.9% Saline Lock 10 ML Syringe IV ×2 (05:58→06:28)
[2020-12-10] MEDS: Ketorolac 30 MG/ML Syringe IV (05:59)
[2020-12-10] MEDS: dexAMETHasone 4 MG/ML Vial IV ×2 (06:28→12:01)
[2020-12-10] MEDS: Gabapentin 100 MG Capsule PO ×2 (10:10→11:54)
[2020-12-10] MEDS: Enoxaparin 40 MG/0.4 ML Syringe SC (10:10)
[2020-12-10] MEDS: Metoprolol Tartrate 25 MG Tablet PO (10:10)
[2020-12-10] MEDS: Famotidine 20 MG Tablet PO (10:11)
[2020-12-10] MEDS: Acetaminophen/Butalbital/Caffe 1 Tablet 2 TABLET PO (11:53)
--- NOTE | 2020-12-10 14:56 | PCM.DC ---
Discharge Instructions Diet Discharge Diet: No restrictions Activity Discharge Activity: Return to Normal Activity Weight Bearing Status: Full weight bearing Follow Up Care Test Results: Test results from this visit will be discussed in further detail at your follow-up appointment, if applicable. Discharge Plan Admission Admit Date/Time: 12/08/20 21:01 Primary Reason for Your Visit: migrane Attending Provider: Raul Chapman Primary Care Provider: Luis Felipe Monsalve Discharge Orders/Prescriptions Prescriptions: New gabapentin 100 mg Capsule 100 mg PO TIDCM Qty: 15 RF: 0 metoprolol tartrate 25 mg Tablet 50 mg PO BID Qty: 14 RF: 0 divalproex [Depakote] 500 mg tablet,delayed release (DR/EC) 1,000 mg PO QHS Qty: 14 RF: 0 ondansetron HCl [Zofran] 4 mg tablet 4 mg PO Q6H PRN (Reason: nausea and vomiting) Qty: 10 RF: 0 dexamethasone 4 mg tablet 4 mg PO DAILY Qty: 5 RF: 0 Continued tizanidine 4 mg tablet 4 mg PO TID PRN (Reason: Muscle Pain) RF: 0 hydrocodone-acetaminophen 7.5-325 mg tablet 1 tab PO Q8H PRN PRN (Reason: Pain) RF: 0 hydroxyzine HCl 25 mg tablet 25 mg PO TID PRN PRN (Reason: .) RF: 0 escitalopram oxalate 20 mg tablet 20 mg PO DAILY RF: 0 Referrals / Follow Up: Luis Felipe Monsalve MD [Primary Care Provider] - Within 1 Week Care Physician,No Primary [NON-STAFF] - Disposition Disposition (needs filled in before D/C Order can be placed): Home, Self Care
--- NOTE | 2020-12-10 18:46 | DS.PCM_ITS ---
Providers Date of Admission: 12/08/20 Date of Discharge: 12/10/20 Primary Care Physician: Dr. Luis Felipe Monsalve MD Reason For Visit: INTRACTABLE MIGRAINE, SUSPECTED CONCURENT CERVICAL Diagnosis Discharge Diagnosis (1) Cephalalgia: Status: Acute Code(s): R51.9 - Headache, unspecified Plan: 1. Intractable migraine cephalgia #2 degenerative disc disease of the cervical spine #3 chronic pain syndrome secondary to degenerative disc disease of the cervical spine #4 essential hypertension Medications at Discharge Home Medications escitalopram oxalate 20 mg PO DAILY 12/08/20 hydrocodone-acetaminophen 1 tab PO Q8H PRN PRN 12/08/20 hydroxyzine HCl 25 mg PO TID PRN PRN 12/08/20 tizanidine 4 mg PO TID PRN 12/08/20 dexamethasone 4 mg PO DAILY #5 tab 12/10/20 divalproex [Depakote] 1,000 mg PO QHS #14 tab 12/10/20 gabapentin 100 mg PO TIDCM #15 cap 12/10/20 metoprolol tartrate 50 mg PO BID #14 tab 12/10/20 ondansetron HCl [Zofran] 4 mg PO Q6H PRN #10 tab 12/10/20 Hospital Course Operations None Procedures None Summary of Care Provided Minutes Spent on Discharge: 30 Hospital Course: This 55-year-old white female was seen in the emergency room at [facility] with a chief complaint of migraine cephalgia, her blood pressure was also noted to be elevated. Patient was on no blood pressure medications. Patient also complained of neck pain, she had been seeing pain management as an outpatient for her neck pain and was on pain medications. Work-up in the emergency room included a CTA of her head neck which was within normal limits, patient was given medication for her migraine without relief. Patient was admitted to [place] [id number], placed on IV Depakote, given Neurontin, and IV Decadron. Patient underwent an MRI of the brain which was initially read out as showing areas suspicious for encephalitis, I requested that the MRI of the brain be over read by another radiologist who did not agree with the first interpretation and felt that there was some chronic changes present on the patient's MRI, it was recommended that the patient's MRI be repeated in 6 months to a year. Patient's MRI of the cervical spine showed degenerative disc disease with an area of disc protrusion at C7/T1. Patient continued to have headache during her hospital stay, I added metoprolol for her blood pressure. Even though the patient stated that she had a headache, during the time of my examinations, patient was resting quietly and did not seem in any distress. On 12/10/2020, patient was seen and examined: On examination she appeared in good health and spirits, she does not appear to be in any distress. Vital signs as documented. Skin warm and dry and without overt rashes. Neck without JVD, thyroid appears normal, trachea is midline, neck is supple. Lungs clear, normal air movement was noted. Heart exam notable for regular rhythm, normal sounds and absence of murmurs, rubs or gallops. Abdomen unremarkable and without evidence of organomegaly, masses, or abdominal aortic enlargement, bowel sounds are present in all 4 quadrants, no abdominal tenderness was noted. Extremities nonedematous, no cyanosis was noted, no clubbing was noted. Neuro: Cranial nerves II through XII are grossly intact, no focal motor deficits were noted, sensation to light touch and pinprick is intact, motor exam 5/5 throughout. Psych: Patient is alert and oriented x3, she does not appear anxious or depressed, she does not appear agitated. Patient appeared stable for discharge on 12/10/2020, patient stated that she had an appointment with her pain management doctor on 12/11/2020, I encouraged her to make that appointment and to also follow-up with her PCP. 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 Electronically Signed: Les Reyes MD at 14:44 EDT Tel , Service support , ADDENDUM: 12/09/20 1950 D/C Instructions Discharge Diet: No restrictions Weight Bearing Status: Full weight bearing Meaningful Use Info Meaningful Use Diagnoses (Choose all that apply): None applicable Discharge Plan Admission Admit Date/Time: 12/08/20 21:01 Primary Reason for Your Visit: manpreetane Attending Provider: Raul Chapman Primary Care Provider: Luis Felipe Monsalve Discharge Orders/Prescriptions Prescriptions: New gabapentin 100 mg Capsule 100 mg PO TIDCM Qty: 15 RF: 0 metoprolol tartrate 25 mg Tablet 50 mg PO BID Qty: 14 RF: 0 divalproex [Depakote] 500 mg tablet,delayed release (DR/EC) 1,000 mg PO QHS Qty: 14 RF: 0 ondansetron HCl [Zofran] 4 mg tablet 4 mg PO Q6H PRN (Reason: nausea and vomiting) Qty: 10 RF: 0 dexamethasone 4 mg tablet 4 mg PO DAILY Qty: 5 RF: 0 Continued tizanidine 4 mg tablet 4 mg PO TID PRN (Reason: Muscle Pain) RF: 0 hydrocodone-acetaminophen 7.5-325 mg tablet 1 tab PO Q8H PRN PRN (Reason: Pain) RF: 0 hydroxyzine HCl 25 mg tablet 25 mg PO TID PRN PRN (Reason: .) RF: 0 escitalopram oxalate 20 mg tablet 20 mg PO DAILY RF: 0 Referrals / Follow Up: Luis Felipe Monsalve MD [Primary Care Provider] - Within 1 Week Care Physician,No Primary [NON-STAFF] - Disposition Disposition (needs filled in before D/C Order can be placed): Home, Self Care Charges/Coding Visit Charges Inpatient E&M: 17240 Disch Hosp
== END 2020-12-10 16:10 | disposition home or self-care (01) | DRG 102 ==
LOC: ED 21:17 → MS3 21:33
PROVIDERS: Admitting Provider Family Medicine; Emergency Provider Emergency Medicine; PCP Family Medicine; Visit Provider Internal Medicine
DX: G43.911 Migraine, unspecified, intractable, with status migrainosus (principal); G04.90 Encephalitis and encephalomyelitis, unspecified; J44.9 Chronic obstructive pulmonary disease, unspecified; F32.9 Major depressive disorder, single episode, unspecified; F41.9 Anxiety disorder, unspecified; I10 Essential (primary) hypertension; M81.0 Age-related osteoporosis without current pathological fracture; G89.4 Chronic pain syndrome; M50.20 Other cervical disc displacement, unspecified cervical region; Z87.891 Personal history of nicotine dependence; Z87.412 Personal history of vulvar dysplasia
CPT/HCPCS: 36415; 70496; 70498; 70551; 72141; 80048; 80053; 84484; 85025; 93005; 99285; 99406; J7030; Q9967; A4216; J2405

== ENCOUNTER → 2025-02-01 | Outpatient (CLI) | payer MEDICARE, MEDICAID, SELFPAY ==
--- NOTE | 2025-02-01 15:02 | MRI_ITS ---
PROCEDURE: SPINE LUMBAR (ROUTINE) 02/01/2025 REASON FOR EXAM: RADICULOPATHY LUMBAR REGION TECHNIQUE: Procedure Code: MRISPL Modality: MR Procedure: SPINE LUMBAR (ROUTINE) COMPARISON: None. FINDINGS: Vertebrae: Modic changes type 1 at the opposite endplates of L3-L4. Preserved in height. Alignment: Retrolisthesis L3 on L4 by 3 mm. Retrolisthesis L4 on L5 by 2 mm. Conus Medullaris: Unremarkable. L1-2: Right paracentral disc protrusion measures 2 mm. No significant foraminal or canal stenosis. L2-3: No significant foraminal or canal stenosis. L3-4: Disc desiccation. Disc bulge asymmetric to the left. Facet joint arthropathy. Moderate left and mild right foramina stenosis. Mild canal stenosis. L4-5: Disc desiccation. Disc bulge. Status post left laminotomy. Severe bilateral foramina stenosis and mass-effect upon the exiting bilateral L4 nerves. Mild canal stenosis. L5-S1: Disc desiccation. Disc bulge. Facet arthropathy. Severe bilateral foramina stenosis. Sacrum: Unremarkable. MRI/Spine Lumbar (Routine) IMPRESSION: Degenerate changes predominantly for severe bilateral foramina stenosis at L4-L 5 and L5-S1 with mass-effect upon the exiting nerves. No significant canal stenosis. Reading Location: [id number]
--- OUTSIDE RECORDS SUMMARY | 2025-02-01 19:12 | XMS RPT_ITS | CCD ---
Author Organization [facility] Care Team Providers Care Water Purifier Name Role Phone GEORGE SUAREZ, LUIS FELIPE Primary Care Physician PHYSICIAN, PUNEET Primary Care Physician Unavailab jeison YORK DO, ELLIOTT Primary Care Physician YORK DO, ELLIOTT Attending Unavailable YORK DO, ELLIOTT Primary Care Unavailable YORK DO, ELLIOTT Attending Unavailable YORK DO, ELLIOTT Primary Care Unavailable YORK DO, ELLIOTT Attending Unavailable YORK DO, ELLIOTT Primary Care Unavailable YORK DO, ELLIOTT Attending Unavailable YORK DO, ELLIOTT Primary Care Unavailable YORK DO, ELLIOTT Attending Unavailable YORK DO, ELLIOTT Primary Care Unavailable YORK DO, ELLIOTT Attending Unavailable YORK DO, ELLIOTT Primary Care Unavailable YORK DO, ELLIOTT Attending Unavailable YORK DO, ELLIOTT Primary Care Unavailable JUVE SUAREZ, NERISSA Primary Care Physician DAE SUAREZ, GIFTY Attending Unavailable JUVE SUAREZ, NERISSA Primary Care Unavailable LISA SUAREZ, DR JARQUIN Attending Unavailmatt AN MD, NERISSA Primary Care Unavailable MAVERICK ELLIS DO Attending Unavailable JUVE SUAREZ, NERISSA Primary Care Unavailable JUVE SUAREZ, NERISSA Primary Care Unavailable DARLEEN SUAREZ, DR APRYL Rob Attending Unavailab jeison AN MD, NERISSA Primary Care Unavailable DARLEEN SUAREZ, DR APRYL Rob Attending Unavailab jeison AN MD, NERISSA Primary Care Unavailable GIFTY PEARL MD Attending Unavailable JUVE SUAREZ, NERISSA Primary Care Unavailable NERISSA AN MD Attending Unavailable JUVE SUAREZ, NERISSA Primary Care Unavailable NERISSA AN MD Attending Unavailable CORTEZ JOSE MD Attending Unavailabl grant AN MD, NERISSA Primary Care Unavailable JUVE SUAREZ, NERISSA Primary Care Unavailable NERISSA AN MD Attending Unavailable JUVE SUAREZ, NERISSA Primary Care Unavailable GIFTY PEARL MD Attending Unavailable Allergies Allergy Classification Reported Allergen(s) Allergy Type Date of Onset Reaction(s) Facility (6 sources) Labetalol; Translations: [labetalol] Drug Allergy [facility] Comment on above: Hives Medications Current Medications Medication Drug Class(es) Dates Sig (Normalized) Sig (Original) acetaminophen 500 mg / diphenhydrAMINE hydrochloride 25 mg oral tablet (5 sources) Histamine-1 Receptor Antagonist Start: 2 take 1 tablet by mouth once daily at bedtime as needed for sleep Tylenol PM Extra Strength oral tablet Dose = 1 tab(s), Oral, qHS, PRN Sleep / Insomnia Start Date: 09/23/21 Status: Ordered amoxicillin 875 mg / clavulanate 125 mg oral tablet (2 sources) Penicillin-class Antibacterial Start: 2 End: 2 take 1 tablet by mouth every twelve hours amoxicillin-clavu lanate 875 mg-125 mg oral tablet 1 tab(s), Oral, q12h, X 6 day(s), # 12 tab(s), 0 Refill(s), 10/03/21 15:01:00 EDT, Pharmacy: [place] [id number] [address], 160, cm, 09/23/21 22:23:00 EDT, Height, 61.4 Start Date: 09/27/21 Stop Date: 10/03/21 Status: Ordered ciprofloxacin 500 mg oral tablet (1 source) Quinolone Antimicrobial Start: 2 End: 2 Cipro 500 mg oral tablet Dose : 500 mg = 1 tab(s), Oral, q12h, Take with a probiotic, X 10 day(s), # 20 tab(s), 0 Refill(s), 08/29/21 23:24:00 EDT, 61.5 Start Date: 08/19/21 Stop Date: 08/29/21 Status: Ordered dicyclomine hydrochloride 10 mg oral capsule (1 source) Anticholinergic Start: 2 End: 2 dicyclomine 10 mg oral capsule Dose : 10 mg = 1 cap(s), Oral, QID, # 20 cap(s), 0 Refill(s) Start Date: 08/19/21 Stop Date: 08/24/21 Status: Ordered hydroCHLOROthiazide 12.5 mg / lisinopril 10 mg oral tablet (2 sources) Thiazide Diuretic, Angiotensin Converting Enzyme Inhibitor Start: 4 take 1 tablet by mouth once daily hydrochlorothiazi de-lisinopril 12.5 mg-10 mg oral tablet Dose = 1 tab(s), Oral, Daily, # 30 tab(s), 0 Refill(s) Start Date: 02/16/24 Status: Ordered hydrOXYzine hydrochloride 25 mg oral tablet (5 sources) Antihistamine Start: 2 hydrOXYzine hydrochloride 25 mg oral tablet Dose : 25 mg = 1 tab(s), Oral, TID, PRN as needed for anxiety Start Date: 09/23/21 Status: Ordered ibuprofen 600 mg oral tablet (2 sources) Nonsteroidal Anti-inflammatory Drug Start: 1 ibuprofen 600 mg oral tablet Dose : 600 mg = 1 tab(s), Oral, q6hr, PRN as needed for pain, # 30 tab(s), 1 Refill(s), Pharmacy: [facility] [place] [id number] [address], 165.1, cm, 08/30/20 12:10:00 EDT, Height, kg, 08/30/20 12:10:00 EDT, Dosing Weight Start Date: 08/30/20 Status: Ordered metroNIDAZOLE 500 mg oral tablet (1 source) Nitroimidazole Antimicrobial Start: 2 End: 2 metroNIDAZOLE 500 mg oral tablet Dose : 500 mg = 1 tab(s), Oral, q8h, X 10 day(s), # 30 tab(s), 0 Refill(s), 08/29/21 23:25:00 EDT, 61.5 Start Date: 08/19/21 Stop Date: 08/29/21 Status: Ordered Multivitamin preparation (2 sources) Start: 3 take 1 tablet by mouth once daily Multivitamin Dose = 1 tab(s), Oral, Daily, 0 Refill(s) Start Date: 02/08/13 Status: Ordered ondansetron 4 mg oral tablet (2 sources) Serotonin-3 Receptor Antagonist Start: 2 End: 2 Zofran 4 mg oral tablet Dose : 4 mg = 1 tab(s), Oral, q8h, PRN Nausea/Vomiting, # 15 tab(s), 0 Refill(s), 10/03/21 13:00:00 EDT, Pharmacy: [facility] [place] [id number] [address], 160, cm, 09/23/21 22:23:00 EDT, Height Start Date: 09/28/21 Stop Date: 10/03/21 Status: Ordered tiZANidine 4 mg oral tablet (7 sources) Central alpha-2 Adrenergic Agonist Start: 1 tiZANidine 4 mg oral tablet Dose : 4 mg = 1 tab(s), Oral, QID, PRN Muscle spasm, 0 Refill(s) Start Date: 08/09/20 Status: Ordered Completed/Discontinued Medications Medication Drug Class(es) Dates Sig (Normalized) Sig (Original) acetaminophen 325 mg / HYDROcodone bitartrate 7.5 mg oral tablet (7 sources) Opioid Agonist Start: 08-09-2020 acetaminophen-hydr ocodone 325 mg-7.5 mg oral tablet Dose = 1 tab(s), Oral, q6hr, 0 Refill(s), 61.4 Start Date: 08/09/20 Status: Ordered Problems Active Problems Problem Classification Problem Date Documented Da te Episodic/Chronic Abdominal pain (1 source) Generalized abdominal tenderness; Translations: [Generalized abdominal tenderness] Episodic Asthma (8 sources) Asthma; Translations: [Unspecified asthma, uncomplicated] 08-31-2013 Chronic Comment on above: Uses inhaler PRN Bacterial infection; unspecified site (1 source) Infection due to Clostridium perfringens; Translations: [Clostridium perfringens [C. perfringens] as the cause of diseases classified elsewhere] Episodic Blindness and vision defects (8 sources) Visual impairment; Translations: [Functional visual loss] 08-31-2013 Chronic Comment on above: left eye Chronic obstructive pulmonary disease and bronchiectasis (15 sources) Chronic obstructive lung disease; Translations: [Pulmonary emphysema] 02-10-2013 Chronic Deficiency and other anemia (8 sources) Anemia; Translations: [Anemia, unspecified] 08-31-2013 Episodic Diverticulosis and diverticulitis (1 source) Diverticula of intestine; Translations: [Diverticulitis of intestine, part unspecified, without perforation or abscess without bleeding] Chronic Essential hypertension (3 sources) Essential hypertension; Translations: [Essential (primary) hypertension] Onset: 02-16-2024 Chronic Fluid and electrolyte disorders (1 source) Dehydration; Translations: [Dehydration] Episodic Genitourinary symptoms and ill-defined conditions (8 sources) Urinary incontinence; Translations: [Unspecified urinary incontinence] 02-08-2013 Chronic Genitourinary symptoms and ill-defined conditions (8 sources) Urgent desire to urinate; Translations: [Urgency of urination] 02-08-2013 Episodic Headache; including migraine (8 sources) Migraine; Translations: [Migraine, unspecified, not intractable, without status migrainosus] 02-08-2013 Chronic Mood disorders (8 sources) Depressive disorder; Translations: [Depression, unspecified] 02-08-2013 Chronic Osteoarthritis (7 sources) Arthritis 02-08-2013 Chronic Osteoporosis (8 sources) Osteoporosis; Translations: [Primary osteoporosis] 05-03-2014 Chronic Other circulatory disease (7 sources) Difficult venous access 09-08-2015 Episodic Other female genital disorders (7 sources) Lesion of vulva 05-03-2014 Episodic Other gastrointestinal disorders (1 source) Irritable bowel syndrome; Translations: [Irritable bowel syndrome without diarrhea] Chronic Other injuries and conditions due to external causes (1 source) Systemic inflammatory response syndrome; Translations: [Systemic inflammatory response syndrome (SIRS) of non-infectious origin without acute organ dysfunction] Episodic Other lower respiratory disease (7 sources) Dyspnea on exertion 02-08-2013 Episodic Other non-traumatic joint disorders (1 source) Shoulder joint pain; Translations: [Pain in unspecified shoulder] Onset: 02-16-2024 Episodic Other upper respiratory infections (1 source) Acute pharyngitis, unspecified; Translations: [Acute pharyngitis, unspecified] Onset: 10-07-2024 Episodic Residual codes; unclassified (7 sources) Chronic pain 04-26-2014 Episodic Residual codes; unclassified (8 sources) Insomnia; Translations: [Insomnia, unspecified] 08-31-2013 Episodic Skin and subcutaneous tissue infections (1 source) Cellulitis, unspecified; Translations: [Cellulitis, unspecified] Onset: 10-07-2024 Episodic Spondylosis; intervertebral disc disorders; other back problems (7 sources) Intervertebral disc prolapse 08-31-2013 Chronic Spondylosis; intervertebral disc disorders; other back problems (7 sources) Backache 02-08-2013 Episodic Unclassified (7 sources) Condyloma 05-03-2014 Unclassified (7 sources) Eye glasses, device (physical object) 08-31-2013 Comment on above: reading only Unclassified (7 sources) Entire neck (body structure) 02-08-2013 Comment on above: PAIN Unclassified (7 sources) Partial vulvectomy 08-31-2013 Past or Other Problems Problem Classification Problem Date Documented Date Episodic/Chronic Biliary tract disease (2 sources) Calculus of gallbladder without cholecystitis without obstruction; Translations: [Calculus of gallbladder without cholecystitis without obstruction] Onset: 05-07-2024 Episodic Calculus of urinary tract (7 sources) Urolith Onset: 08-20-2013 08-31-2013 Episodic Deficiency and other anemia (2 sources) Anemia, unspecified; Translations: [Anemia, unspecified] Onset: 02-24-2024 Episodic Immunizations and screening for infectious disease (4 sources) Encounter for screening for other viral diseases; Translations: [Encounter for screening for human immunodeficiency virus [HIV]] Onset: 05-07-2024 Episodic Other nutritional; endocrine; and metabolic disorders (2 sources) Body mass index (BMI) 19.9 or less, adult; Translations: [Body mass index [BMI] 19.9 or less, adult] Onset: 01-21-2023 Episodic Other nutritional; endocrine; and metabolic disorders (2 sources) Abnormal weight loss; Translations: [Abnormal weight loss] Onset: 01-21-2023 Episodic Other screening for suspected conditions (not mental disorders or infectious disease) (2 sources) Other specified abnormal findings of blood chemistry; Translations: [Other specified abnormal findings of blood chemistry] Onset: 02-04-2023 Episodic Viral infection (1 source) Disease caused by 2019-nCoV; Translations: [COVID-19] Results Test Name Value Interpretation Reference Range Facility .Auto Diffon 11-30-2024 Basophil, Absolute 0.1 10 3/mcL Normal 0.0-0.3 [facility] Comment on above: Performed By: #### G FR, CBC, ADIFF, ANEU, MDW, PBNP, TROPHS, BMP #### [facility] [address] [place] [id number] Basophils/100 WBC (Bld) 1.3 % Normal 0.0-2.5 [facility] Comment on above: Performed By: #### G FR, CBC, ADIFF, ANEU, MDW, PBNP, TROPHS, BMP #### [address] [address] Eosinophil, Absolute 0.2 10 3/mcL Normal 0.0-0.7 [facility] Comment on above: Performed By: #### G FR, CBC, ADIFF, ANEU, MDW, PBNP, TROPHS, BMP #### [address] [address] Eosinophils/100 WBC (Bld) 3.4 % Normal 0.0-6.0 [facility] Comment on above: Performed By: #### G FR, CBC, ADIFF, ANEU, MDW, PBNP, TROPHS, BMP #### [address] [address] Lymphocyte, Absolute 1.6 10 3/mcL Normal 0.9-4.3 [facility] Comment on above: Performed By: #### G FR, CBC, ADIFF, ANEU, MDW, PBNP, TROPHS, BMP #### [address] [address] Lymphocytes/100 WBC (Bld) 23.6 % Normal 20.0-40.0 [facility] Comment on above: Performed By: #### G FR, CBC, ADIFF, ANEU, MDW, PBNP, TROPHS, BMP #### [address] [address] Monocyte, Absolute 0.6 10 3/mcL Normal 0.1-1.4 [facility] Comment on above: Performed By: #### G FR, CBC, ADIFF, ANEU, MDW, PBNP, TROPHS, BMP #### [address] [address] Monocytes/100 WBC (Bld) 8.8 % Normal 2.0-13.0 [facility] Comment on above: Performed By: #### G FR, CBC, ADIFF, ANEU, MDW, PBNP, TROPHS, BMP #### [address] [address] Neutrophils/100 WBC (Bld) 62.9 % Normal 50.0-75.0 [facility] Comment on above: Performed By: #### G FR, CBC, CAYDEN, JUSTINA DODSON, LUZ MARIA, SORAYA VÁZQUEZ #### [address] [address] .GFRon 11-30-2024 Estimated Glomerular Filtration Rate 104 ml/min/1.73sqm Normal [facility] Comment on above: Result Comment: Stages of Chronic Kidney Disease (CKD) Stage Description eGFR(ml/min/1.73 sq.m.) CKD 1 Normal kidney function or >=90 normal kindney function with possible kidney damage (ex. Proteinuria) CKD 2 Kidney damage with mild loss 60-89 of kidney function CKD 3a Mild to moderate loss of kidney 45-59 function CKD 3b Moderate to severe loss of 30-44 of kindey function CKD 4 Severe loss of kidney function 15-29 CKD 5 Kidney failure <15 Note: (go live 2024) the eGFR calculation was updated to the 2020 CKD-EPI creatinine equation without a race factor to calculate the eGFR results. Performed By: #### G FR, CBC, CAYDEN, JUSTINA DODSON, LUZ MARIA, SORAYA VÁZQUEZ #### [address] [address] .NEUABSon 11-30-2024 Neutrophil, Absolute 4.2 10 3/mcL Normal 2.3-8.1 [facility] Comment on above: Performed By: #### G FR, CBC, CAYDEN, JUSTINA DODSON, LUZ MARIA, KATHIE, BMP #### [address] [address] A1Con 11-30-2024 Glucose [Mass/Vol] 117 mg/dL Normal [facility] Comment on above: Result Comment: Alethea mated Average Glucose calculated by equation ((28.7xA1C)-46.7) Estimated average glucose (eAG) is a calculated value from Hemoglobin A1C and is community health program representative of the average blood glucose level in the last 2-3 month period. Normal range: less than 114 mg/dL Performed By: #### G FR, CBC, CAYDEN, IVORY, MDW, PBNP, TROPHS, BMP #### [address] [address] HbA1c (Bld) [Mass fraction] 5.7 % Normal 4.0-6.0 [facility] Comment on above: Performed By: #### G FR, CBC, ADIFF, ANEU, MDW, PBNP, TROPHS, BMP #### [address] [address] [facility] 11-30-2024 BUN/Creatinine Ratio 31.7 ratio High 10.0-22.0 [facility] Comment on above: Performed By: #### G FR, CBC, ADIFF, ANEU, MDW, PBNP, TROPHS, BMP #### [place] [address] Calcium [Mass/Vol] 10.1 mg/dL Normal 8.7-10.4 [facility] Comment on above: Performed By: #### G FR, CBC, ADIFF, ANEU, MDW, PBNP, TROPHS, BMP #### [address] [address] Chloride [Moles/Vol] 102 mmol/L Normal 98-110 [facility] Comment on above: Performed By: #### G FR, CBC, ADIFF, ANEU, MDW, PBNP, TROPHS, BMP #### [address] [address] CO2 [Moles/Vol] 32 mmol/L Normal 22-32 [facility] Comment on above: Performed By: #### G FR, CBC, ADIFF, ANEU, MDW, PBNP, TROPHS, BMP #### [address] [address] Creatinine [Mass/Vol] 0.60 mg/dL Normal 0.50-1.20 [facility] Comment on above: Result Comment: Test ing performed on vufind analyzer using enzymatic creatinine methodology. Performed By: #### G FR, CBC, ADIFF, ANEU, MDW, PBNP, TROPHS, BMP #### [address] [address] Electrolyte Balance 5.0 mEq/L Normal 4.0-15.0 [facility] Comment on above: Performed By: #### G FR, CBC, ADIFF, IVORY, MDW, PBNP, TROPHS, BMP #### [address] [address] Glucose [Mass/Vol] 105 mg/dL Normal 70-110 [facility] Comment on above: Performed By: #### G FR, CBC, ADIFF, ANEU, MDW, PBNP, TROPHS, BMP #### [address] [address] Potassium [Moles/Vol] 4.5 mmol/L Normal 3.5-5.0 [facility] Comment on above: Performed By: #### G FR, CBC, ADIFF, ANEU, MDW, PBNP, TROPHS, BMP #### [address] [address] Sodium [Moles/Vol] 139 mmol/L Normal 136-145 [facility] Comment on above: Performed By: #### G FR, CBC, ADIFF, ANEU, MDW, PBNP, TROPHS, BMP #### [address] [address] Urea nitrogen [Mass/Vol] 19.0 mg/dL Normal 8.0-22.0 [facility] Comment on above: Performed By: #### G FR, CBC, ADIFF, IVORY, MDW, PBNP, TROPHS, BMP #### [address] [address] CBCon 11-30-2024 Erythrocyte distribution width (RBC) [Ratio] 13.9 % Normal 11.5-15.5 [facility] Comment on above: Performed By: #### G FR, CBC, ADIFF, IVORY, MDW, PBNP, TROPHS, BMP #### [address] [address] Hematocrit (Bld) [Volume fraction] 32.5 % Low 34.0-46.0 [facility] Comment on above: Performed By: #### G FR, CBC, ADIFF, ANEU, MDW, PBNP, TROPHS, BMP #### [place] [address] Hgb 10.8 G/dL Low 12.0-16.0 [facility] Comment on above: Performed By: #### G FR, CBC, ADIFF, ANEU, MDW, PBNP, TROPHS, BMP #### [place] [address] MCH (RBC) [Entitic mass] 27.8 pg Normal 27.0-33.0 [facility] Comment on above: Performed By: #### G FR, CBC, ADIFF, ANEU, MDW, PBNP, TROPHS, BMP #### [place] [address] MCHC 33.2 G/dL Normal 32.0-36.0 [facility] Comment on above: Performed By: #### G FR, CBC, ADIFF, ANEU, MDW, PBNP, TROPHS, BMP #### [place] [address] MCV (RBC) [Entitic vol] 83.7 fL Normal 80.0-99.0 [facility] Comment on above: Performed By: #### G FR, CBC, ADIFF, ANEU, MDW, PBNP, TROPHS, BMP #### [place] [address] Platelet 211 10 3/mcL Normal 150-450 [facility] Comment on above: Performed By: #### G FR, CBC, ADIFF, ANEU, MDW, PBNP, TROPHS, BMP #### [place] [address] Platelet mean volume (Bld) [Entitic vol] 9.1 fL Normal 6.6-10.5 [facility] Comment on above: Performed By: #### G FR, CBC, ADIFF, ANEU, MDW, PBNP, TROPHS, BMP #### [place] [address] RBC 3.88 10 6/mcL Low 4.10-5.30 [facility] Comment on above: Performed By: #### G FR, CBC, ADIFF, ANEU, MDW, PBNP, TROPHS, BMP #### [address] [address] WBC 6.6 10 3/mcL Normal 4.5-10.8 [facility] Comment on above: Performed By: #### G FR, CBC, ADIFF, ANEU, MDW, PBNP, TROPHS, BMP #### [address] [address] HFPon 11-30-2024 Bili Indirect 0.2 mg/dL Normal 0.1-10.0 [facility] Comment on above: Performed By: #### G FR, CBC, ADIFF, ANEU, MDW, PBNP, TROPHS, BMP #### [place] [address] Albumin Level 4.2 G/dL Normal 3.2-4.8 [facility] Comment on above: Performed By: #### G FR, CBC, ADIFF, IVORY, MDW, PBNP, TROPHS, BMP #### [place] [address] Albumin/Globulin [Mass ratio] 1.3 {ratio} Normal 0.9-1.6 [facility] Comment on above: Performed By: #### G FR, CBC, ADIFF, ANEU, MDW, PBNP, TROPHS, BMP #### [address] [address] ALP [Catalytic activity/Vol] 84 U/L Normal 38-126 [facility] Comment on above: Performed By: #### G FR, CBC, ADIFF, ANEU, MDW, PBNP, TROPHS, BMP #### [place] [id number] ALT [Catalytic activity/Vol] 14 U/L Normal 10-49 [facility] Comment on above: Performed By: #### G FR, CBC, ADIFF, ANEU, MDW, PBNP, TROPHS, BMP #### [place] [id number] AST [Catalytic activity/Vol] 23 U/L Normal 8-34 [facility] Comment on above: Performed By: #### G FR, CBC, ADIFF, ANEU, MDW, PBNP, TROPHS, BMP #### [place] [id number] Bili Direct 0.1 mg/dL Normal 0.0-0.4 [facility] Comment on above: Result Comment: Use of this assay is not recommended for patients undergoing treatment with eltrombopag due to the potential for falsely elevated results. Performed By: #### G FR, CBC, ADIFF, ANEU, MDW, PBNP, TROPHS, BMP #### [place] [address] Bili Total 0.30 mg/dL Normal 0.20-1.20 [facility] Comment on above: Result Comment: Use of this assay is not recommended for patients undergoing treatment with eltrombopag due to the potential for falsely elevated results. Performed By: #### G FR, CBC, ADIFF, ANEU, MDW, PBNP, TROPHS, BMP #### [place] [address] Globulin 3.3 G/dL Normal 2.5-4.2 [facility] Comment on above: Performed By: #### G FR, CBC, ADIFF, IVORY, MDW, PBNP, TROPHS, BMP #### [place] [address] Total Protein 7.5 G/dL Normal 5.7-8.2 [facility] Comment on above: Performed By: #### G FR, CBC, ADIFF, ANEU, MDW, PBNP, TROPHS, BMP #### [place] [address] LIPIDon 11-30-2024 Cholesterol [Mass/Vol] 147 mg/dL Normal 50-199 [facility] Comment on above: Result Comment: Chol esterol Reference Interval: Less than 200 Desirable 200-239 Borderline high risk 240 and above High risk Performed By: #### G FR, CBC, ADIFF, ANEU, MDW, PBNP, TROPHS, BMP #### [place] [address] Cholesterol in HDL [Mass/Vol] 53 mg/dL Normal 40-59 [facility] Comment on above: Performed By: #### G FR, CBC, ADIFF, IVORY, MDW, PBZO, TROPHS, BMP #### [place] [address] Cholesterol in LDL [Mass/Vol] 73 mg/dL Normal 0-129 [facility] Comment on above: Performed By: #### G FR, CBC, ADIFF, IVORY, MDW, PBNP, TROPHS, BMP #### [place] [address] Triglyceride [Mass/Vol] 103 mg/dL Normal 3-149 [facility] Comment on above: Performed By: #### G FR, CBC, ADIFF, IVORY, MDW, PBZO, TROPHS, BMP #### [place] [address] HCVon 05-08-2024 Hep C Ab Non-Reactive Normal Non-Reacti [facility] Comment on above: Performed By: #### G FR, CBC, ADIFF, IVORY, MDW, PBNP, TROPHS, BMP #### [place] [address] Hep C Ab Int Normal [facility] Comment on above: Result Comment: Nonr eactive: Samples with a value < 0.80 are considered nonreactive (negative) for antibodies to HCV. A negative test result does not exclude the possibility of exposure to or infection with HCV. HCV antibodies may be undetectable in some stages of the infection and in some clinical conditions. See Interp Performed By: #### G FR, CBC, ADIFF, IVORY, MDW, PBNP, TROPHS, BMP #### [place] [address] HIVon 05-08-2024 HIV 1/2 [facility] Comment on above: Result Comment: Spec imen is negative for anti-HIV-1 and anti-HIV-2. Performed By: #### G FR, CBC, ADIFF, ANEU, MDW, PBNP, TROPHS, BMP #### [place] [address] .GFRon 05-07-2024 Estimated Glomerular Filtration Rate 106 ml/min/1.73sqm Normal [facility] Comment on above: Result Comment: Stages of Chronic Kidney Disease (CKD) Stage Description eGFR(ml/min/1.73 sq.m.) CKD 1 Normal kidney function or >=90 normal kindney function with possible kidney damage (ex. Proteinuria) CKD 2 Kidney damage with mild loss 60-89 of kidney function CKD 3a Mild to moderate loss of kidney 45-59 function CKD 3b Moderate to severe loss of 30-44 of kindey function CKD 4 Severe loss of kidney function 15-29 CKD 5 Kidney failure <15 Note: (go live 2024) the eGFR calculation was updated to the 2020 CKD-EPI creatinine equation without a race factor to calculate the eGFR results. Performed By: #### G FR, CBC, ADIFF, ANEU, MDW, PBNP, TROPHS, BMP #### [address] [address] [facility] 05-07-2024 BUN/Creatinine Ratio 39.3 ratio High 10.0-22.0 [facility] Comment on above: Performed By: #### B MP, LIP, HFP, GFR, HCV1, HIV #### [address] [address] Calcium [Mass/Vol] 10.2 mg/dL Normal 8.7-10.4 [facility] Comment on above: Performed By: #### B MP, LIP, HFP, GFR, HCV1, HIV #### [address] [address] Chloride [Moles/Vol] 103 mmol/L Normal 98-110 [facility] [facility] Comment on above: Performed By: #### B MP, LIP, HFP, GFR, HCV1, HIV #### [address] [address] CO2 [Moles/Vol] 32 mmol/L Normal 22-32 [facility] MAIN Comment on above: Performed By: #### B MP, LIP, HFP, GFR, HCV1, HIV #### [address] [address] Creatinine [Mass/Vol] 0.56 mg/dL Normal 0.50-1.20 [facility] MAIN Comment on above: Result Comment: Test ing performed on vufind analyzer using enzymatic creatinine methodology. Performed By: #### B MP, LIP, HFP, GFR, HCV1, HIV #### [place] [id number] Electrolyte Balance 5.0 mEq/L Normal 4.0-15.0 [facility] MAIN Comment on above: Performed By: #### B MP, LIP, HFP, GFR, HCV1, HIV #### [place] [id number] Glucose [Mass/Vol] 84 mg/dL Normal 70-110 [facility] MAIN Comment on above: Performed By: #### B MP, LIP, HFP, GFR, HCV1, HIV #### [place] [id number] Potassium [Moles/Vol] 4.7 mmol/L Normal 3.5-5.0 [facility] MAIN Comment on above: Performed By: #### B MP, LIP, HFP, GFR, HCV1, HIV #### [place] [id number] Sodium [Moles/Vol] 140 mmol/L Normal 136-145 [facility] MAIN Comment on above: Performed By: #### B MP, LIP, HFP, GFR, HCV1, HIV #### [place] [id number] Urea nitrogen [Mass/Vol] 22.0 mg/dL Normal 8.0-22.0 [facility] MAIN Comment on above: Performed By: #### B MP, LIP, HFP, GFR, HCV1, HIV #### [address] [address] HFPon 05-07-2024 Bili Indirect Unable to Calculate Normal 0.1-10.0 [facility] MAIN Comment on above: Result Comment: Unab le to calculate this test result accurately. Results used to calculate this test are outside the reportable range. Performed By: #### G FR, CBC, ADIFF, ANEU, MDW, PBNP, TROPHS, BMP #### [place] [id number] Albumin Level 4.2 G/dL Normal 3.2-4.8 [facility] MAIN Comment on above: Performed By: #### G FR, CBC, ADIFF, ANEU, MDW, PBNP, TROPHS, BMP #### [place] [address] Albumin/Globulin [Mass ratio] 1.3 {ratio} Normal 0.9-1.6 [facility] MAIN Comment on above: Performed By: #### G FR, CBC, ADIFF, ANEU, MDW, PBNP, TROPHS, BMP #### [place] [address] ALP [Catalytic activity/Vol] 99 U/L Normal 38-126 [facility] MAIN Comment on above: Performed By: #### G FR, CBC, ADIFF, ANEU, MDW, PBNP, TROPHS, BMP #### [place] [address] ALT [Catalytic activity/Vol] 11 U/L Normal 10-49 [facility] MAIN Comment on above: Performed By: #### G FR, CBC, ADIFF, ANEU, MDW, PBNP, TROPHS, BMP #### [place] [address] AST [Catalytic activity/Vol] 23 U/L Normal 8-34 [facility] MAIN Comment on above: Performed By: #### G FR, CBC, ADIFF, ANEU, MDW, PBNP, TROPHS, BMP #### [place] [address] Bili Direct <0.1 Normal 0.0-0.4 [facility] MAIN Comment on above: Result Comment: Use of this assay is not recommended for patients undergoing treatment with eltrombopag due to the potential for falsely elevated results. Performed By: #### G FR, CBC, ADIFF, ANEU, MDW, PBNP, TROPHS, BMP #### [place] [address] Bili Total 0.20 mg/dL Normal 0.20-1.20 [facility] MAIN Comment on above: Result Comment: Use of this assay is not recommended for patients undergoing treatment with eltrombopag due to the potential for falsely elevated results. Performed By: #### G FR, CBC, ADIFF, ANEU, MDW, PBNP, TROPHS, BMP #### [place] [id number] [place] [address] Globulin 3.2 G/dL Normal 1.5-3.8 [facility] MAIN Comment on above: Performed By: #### G FR, CBC, ADIFF, ANEU, MDW, PBNP, TROPHS, BMP #### [place] [id number] [place] [address] Total Protein 7.4 G/dL Normal 5.7-8.2 [facility] MAIN Comment on above: Performed By: #### G FR, CBC, ADIFF, ANEU, MDW, PBNP, TROPHS, BMP #### [address] [address] LIPon 05-07-2024 Lipase Level 51 U/L Normal 12-53 [facility] MAIN Comment on above: Result Comment: No te - New Reference Range in effect 19 Performed By: #### G FR, CBC, ADIFF, ANEU, MDW, PBNP, TROPHS, BMP #### [address] [address] US ABDOMEN LIMITEDon 024 US ABDOMEN LIMITED ORIGINAL EXAMINATION: RIGHT UPPER QUADRANT ULTRASOUND 02/27/2024 8:48 am All images were recorded and archived. COMPARISON: None. HISTORY: ORDERING SYSTEM PROVIDED HISTORY: Reason for Exam: NAUSEA FINDINGS: LIVER: The liver demonstrates normal echogenicity without evidence of intrahepatic biliary ductal dilatation. BILIARY SYSTEM: 1 cm gallstones seen within the gallbladder. No gallbladder wall thickening or pericholecystic fluid. Negative sonographic Pacheco's sign. Common bile duct is borderline dilated measuring 7.6 mm. RIGHT KIDNEY: The right kidney is grossly unremarkable without evidence of hydronephrosis. PANCREAS: The main pancreatic duct is borderline dilated at 2.8 mm.. OTHER: No evidence of right upper quadrant ascites. IMPRESSION: Cholelithiasis. Borderline dilation of the common duct. Borderline dilation of the main pancreatic duct. Correlate with alk-phos, direct bilirubin, and lipase to determine need for further evaluation with MRCP or ERCP. I have personally reviewed the images of this examination and agree with the resident's findings and interpretation. Interpreted by: Tj Moser DO Preliminary Report By: Amado Aguilar MD Electronically signed By Tj Moser DO Dictated Date: 02/27/2024 10:40:03 AM Prelim Date: 02/27/2024 10:56:01 AM Sign Date: 02/27/2024 10:56:01 AM Ordering Provider: NERISSA Barry [facility] MAIN FEon 02-24-2024 Iron [Mass/Vol] 48 ug/dL Low 50-170 [facility] MAIN Comment on above: Performed By: #### G FR, CBC, ADIFF, ANEU, MDW, PBNP, TROPHS, BMP #### [place] [address] Ambrosio 02-24-2024 Ferritin [Mass/Vol] 26.5 ng/mL Normal 8.0-252.0 [facility] MAIN Comment on above: Performed By: #### G FR, CBC, ADIFF, ANEU, MDW, PBNP, TROPHS, BMP #### [place] [address] IBCon 02-24-2024 TIBC 378 mcg/dL Normal 250-500 [facility] MAIN Comment on above: Performed By: #### G FR, CBC, ADIFF, ANEU, MDW, PBNP, TROPHS, BMP #### [address] [address] .Auto Diffon 02-16-2024 Basophil, Absolute 0.1 10 3/mcL Normal 0.0-0.3 [facility] MAIN Comment on above: Performed By: #### G FR, CBC, ADIFF, ANEU, MDW, PBNP, TROPHS, BMP #### [place] [phone] Basophils/100 WBC (Bld) 0.9 % Normal 0.0-2.5 [facility] MAIN Comment on above: Performed By: #### G FR, CBC, ADIFF, ANEU, MDW, PBNP, TROPHS, BMP #### [facility] [address] [place], [place] [address] Eosinophil, Absolute 0.2 10 3/mcL Normal 0.0-0.7 [facility] MAIN Comment on above: Performed By: #### G FR, CBC, ADIFF, ANEU, MDW, PBNP, TROPHS, BMP #### [address] [address] Eosinophils/100 WBC (Bld) 3.2 % Normal 0.0-6.0 [facility] MAIN Comment on above: Performed By: #### G FR, CBC, ADIFF, ANEU, MDW, PBNP, TROPHS, BMP #### [address] [address] Lymphocyte, Absolute 1.5 10 3/mcL Normal 0.9-4.3 [facility] MAIN Comment on above: Performed By: #### G FR, CBC, ADIFF, ANEU, MDW, PBNP, TROPHS, BMP #### [address] [address] Lymphocytes/100 WBC (Bld) 22.3 % Normal 20.0-40.0 [facility] MAIN Comment on above: Performed By: #### G FR, CBC, ADIFF, ANEU, MDW, PBNP, TROPHS, BMP #### [address] [address] Monocyte, Absolute 0.6 10 3/mcL Normal 0.1-1.4 [facility] MAIN Comment on above: Performed By: #### G FR, CBC, ADIFF, ANEU, MDW, PBNP, TROPHS, BMP #### [address] [address] Monocytes/100 WBC (Bld) 9.2 % Normal 2.0-13.0 [facility] MAIN Comment on above: Performed By: #### G FR, CBC, ADIFF, ANEU, MDW, PBNP, TROPHS, BMP #### [address] [address] Neutrophils/100 WBC (Bld) 64.4 % Normal 50.0-75.0 [facility] MAIN Comment on above: Performed By: #### G FR, CBC, ADIFF, ANEU, MDW, PBNP, TROPHS, BMP #### [address] [address] .GFRon 02-16-2024 GFR Non- >60 [facility] MAIN Comment on above: Result Comment: GFR Population mean for , Non- Americans Ages 20-29 = 116 mL/min/1.73 sq.m. Ages 30-39 = 107 mL/min/1.73 sq.m. Ages 40-49 = 99 mL/min/1.73 sq.m. Ages 50-59 = 93 mL/min/1.73 sq.m. Ages 60-69 = 85 mL/min/1.73 sq.m. Ages 70+ = 75 mL/min/1.73 sq.m. Chronic Kidney Disease: Less than 60 mL/min/1.73 square meters End Stage Renal Disease: Less than 15 mL/min/1.73 square meters Performed By: #### G FR, CBC, ADIFF, ANEU, JUSTINA, LUZ MARIA, TROPHNgoc, BMP #### [place] [address] GFR >60 [facility] MAIN Comment on above: Result Comment: GFR Population mean for , Non- Americans Ages 20-29 = 116 mL/min/1.73 sq.m. Ages 30-39 = 107 mL/min/1.73 sq.m. Ages 40-49 = 99 mL/min/1.73 sq.m. Ages 50-59 = 93 mL/min/1.73 sq.m. Ages 60-69 = 85 mL/min/1.73 sq.m. Ages 70+ = 75 mL/min/1.73 sq.m. Chronic Kidney Disease: Less than 60 mL/min/1.73 square meters End Stage Renal Disease: Less than 15 mL/min/1.73 square meters Performed By: #### G FR, CBC, ADIFF, ANEU, JUSTINA, PBOZ, TROPHS, BMP #### [place] [id number] .MDWon 02-16-2024 Monocyte Distribution Width 15.48 Normal 0.00-20.00 [facility] MAIN Comment on above: Result Comment: For ED adult patients suspected of sepsis, MDW<=20.0 does not rule out sepsis or risk of sepsis Performed By: #### G FR, CBC, ADIFF, ANEU, MDW, PBNP, TROPHS, BMP #### [address] [address] .NEUABSon 02-16-2024 Neutrophil, Absolute 4.3 10 3/mcL Normal 2.3-8.1 [facility] MAIN Comment on above: Performed By: #### G FR, CBC, ADIFF, ANEU, MDW, PBNP, TROPHS, BMP #### [address] [address] BMPon 02-16-2024 BUN/Creatinine Ratio 24.5 ratio High 10.0-22.0 [facility] MAIN Comment on above: Performed By: #### G FR, CBC, ADIFF, ANEU, MDW, PBNP, TROPHS, BMP #### [address] [address] Calcium [Mass/Vol] 9.7 mg/dL Normal 8.7-10.4 [facility] MAIN Comment on above: Performed By: #### G FR, CBC, ADIFF, ANEU, MDW, PBNP, TROPHS, BMP #### [address] [address] Chloride [Moles/Vol] 107 mmol/L Normal 98-110 [facility] MAIN Comment on above: Performed By: #### G FR, CBC, ADIFF, ANEU, MDW, PBNP, TROPHS, BMP #### [address] [address] CO2 [Moles/Vol] 30 mmol/L Normal 22-32 [facility] MAIN Comment on above: Performed By: #### G FR, CBC, ADIFF, ANEU, MDW, PBNP, TROPHS, BMP #### [address] [address] Creatinine [Mass/Vol] 0.53 mg/dL Normal 0.50-1.20 [facility] MAIN Comment on above: Result Comment: Test ing performed on vufind analyzer using enzymatic creatinine methodology. Performed By: #### G FR, CBC, ADIFF, ANEU, MDW, PBNP, TROPHS, BMP #### [address] [address] Electrolyte Balance 6.0 mEq/L Normal 4.0-15.0 [facility] MAIN Comment on above: Performed By: #### G FR, CBC, ADIFF, ANEU, MDW, PBNP, TROPHS, BMP #### [address] [address] Glucose [Mass/Vol] 88 mg/dL Normal 70-110 [facility] MAIN Comment on above: Performed By: #### G FR, CBC, ADIFF, ANEU, MDW, PBNP, TROPHS, BMP #### [place] [id number] Potassium [Moles/Vol] 3.7 mmol/L Normal 3.5-5.0 [facility] MAIN Comment on above: Performed By: #### G FR, CBC, ADIFF, ANEU, MDW, PBNP, TROPHS, BMP #### [place] [id number] Sodium [Moles/Vol] 143 mmol/L Normal 136-145 [facility] MAIN Comment on above: Performed By: #### G FR, CBC, ADIFF, ANEU, MDW, PBNP, TROPHS, BMP #### [place] [id number] Urea nitrogen [Mass/Vol] 13.0 mg/dL Normal 8.0-22.0 [facility] MAIN Comment on above: Performed By: #### G FR, CBC, ADIFF, ANEU, MDW, PBNP, TROPHS, BMP #### [address] [address] CBCon 02-16-2024 Erythrocyte distribution width (RBC) [Ratio] 14.6 % Normal 11.5-15.5 [facility] MAIN Comment on above: Performed By: #### G FR, CBC, ADIFF, ANEU, MDW, PBNP, TROPHS, BMP #### [place] [id number] Hematocrit (Bld) [Volume fraction] 32.5 % Low 34.0-46.0 [facility] MAIN Comment on above: Performed By: #### G FR, CBC, ADIFF, ANEU, MDW, PBNP, TROPHS, BMP #### [place] [address] Hgb 11.0 G/dL Low 12.0-16.0 [facility] MAIN Comment on above: Performed By: #### G FR, CBC, ADIFF, ANEU, MDW, PBNP, TROPHS, BMP #### [place] [address] MCH (RBC) [Entitic mass] 28.6 pg Normal 27.0-33.0 [facility] MAIN Comment on above: Performed By: #### G FR, CBC, ADIFF, ANEU, MDW, PBNP, TROPHS, BMP #### [place] [address] MCHC 33.7 G/dL Normal 32.0-36.0 [facility] MAIN Comment on above: Performed By: #### G FR, CBC, ADIFF, ANEU, MDW, PBNP, TROPHS, BMP #### [place] [address] MCV (RBC) [Entitic vol] 84.9 fL Normal 80.0-99.0 [facility] MAIN Comment on above: Performed By: #### G FR, CBC, ADIFF, ANEU, MDW, PBNP, TROPHS, BMP #### [place] [address] Platelet 222 10 3/mcL Normal 150-450 [facility] MAIN Comment on above: Performed By: #### G FR, CBC, ADIFF, ANEU, MDW, PBNP, TROPHS, BMP #### [place] [address] Platelet mean volume (Bld) [Entitic vol] 9.0 fL Normal 6.6-10.5 [facility] MAIN Comment on above: Performed By: #### G FR, CBC, ADIFF, ANEU, MDW, PBNP, TROPHS, BMP #### [place] [address] RBC 3.83 10 6/mcL Low 4.10-5.30 [facility] MAIN Comment on above: Performed By: #### G FR, CBC, ADCRISTINO, IVORY, JUSTINA, PBZO, TROPHS, BMP #### [address] [address] WBC 6.7 10 3/mcL Normal 4.5-10.8 [facility] MAIN Comment on above: Performed By: #### G FR, CBC, ADCRISTINO, IVORY, W, PBZO, TROPHS, BMP #### [address] [address] LABORATORYOrdered By: SYSTEM SYSTEM on 02-16-2024 Basophils (Bld) [#/Vol] 0.1 103/mcL Normal 0.0 - 0.3 10^3/mcL AH Workflow SS Basophils/100 WBC (Bld) 0.9 % Normal 0.0 - 2.5 % AH Workflow SS Calcium [Mass/Vol] 9.7 mg/dL Normal 8.7 - 10. 4 mg/dL ADM SS Chloride [Moles/Vol] 107 mmol/L Normal 98 - 110 mEq/L ADM SS CO2 [Moles/Vol] 30 mmol/L Normal 22 - 32 mEq/L ADM SS Creatinine [Mass/Vol] 0.53 mg/dL Normal 0.50 - 1.20 mg/dL AH ADM SS Comment on above: Interpretive Data: T esting performed on vufind analyzer using enzymatic creatinine methodology. Electrolyte Balance 6.0 mEq/L Normal 4.0 - 15 .0 mEq/L AH ADM SS Eosinophils (Bld) [#/Vol] 0.2 103/mcL Normal 0.0 - 0.7 10^3/mcL AH Workflow SS Eosinophils/100 WBC (Bld) 3.2 % Normal 0.0 - 6.0 % AH Workflow SS Erythrocyte distribution width (RBC) [Ratio] 14.6 % Normal 11.5 - 15.5 % AH Workflow SS GFR/1.73 sq M.predicted among blacks MDRD (S/P/Bld) [Vol rate/Area] ml/min/1.73sqm Invalid Interpretation Code AH ADM SS Comment on above: Interpretive Data: GFR Population mean for , Non- Americans Ages 20-29 = 116 mL/min/1.73 sq.m. Ages 30-39 = 107 mL/min/1.73 sq.m. Ages 40-49 = 99 mL/min/1.73 sq.m. Ages 50-59 = 93 mL/min/1.73 sq.m. Ages 60-69 = 85 mL/min/1.73 sq.m. Ages 70+ = 75 mL/min/1.73 sq.m. Chronic Kidney Disease: Less than 60 mL/min/1.73 square meters End Stage Renal Disease: Less than 15 mL/min/1.73 square meters GFR/1.73 sq M.predicted among non-blacks MDRD (S/P/Bld) [Vol rate/Area] ml/min/1.73sqm Invalid Interpretation Code ADM SS Comment on above: Interpretive Data: GFR Population mean for , Non- Americans Ages 20-29 = 116 mL/min/1.73 sq.m. Ages 30-39 = 107 mL/min/1.73 sq.m. Ages 40-49 = 99 mL/min/1.73 sq.m. Ages 50-59 = 93 mL/min/1.73 sq.m. Ages 60-69 = 85 mL/min/1.73 sq.m. Ages 70+ = 75 mL/min/1.73 sq.m. Chronic Kidney Disease: Less than 60 mL/min/1.73 square meters End Stage Renal Disease: Less than 15 mL/min/1.73 square meters Glucose [Mass/Vol] 88 mg/dL Normal 70 - 110 mg/dL ADM SS Hematocrit (Bld) [Volume fraction] 32.5 % Low 34.0 - 46.0 % AH Workflow SS Hemoglobin (Bld) [Mass/Vol] 11.0 G/dL Low 12.0 - 16.0 G/dL AH Workflow SS Lymphocytes (Bld) [#/Vol] 1.5 103/mcL Normal 0.9 - 4.3 10^3/mcL AH Workflow SS Lymphocytes/100 WBC (Bld) 22.3 % Normal 20.0 - 40.0 % AH Workflow SS MCH (RBC) [Entitic mass] 28.6 pg Normal 27.0 - 33.0 pg AH Workflow SS MCHC 33.7 G/dL Normal 32.0 - 36.0 G/dL Workflow SS MCV (RBC) [Entitic vol] 84.9 fL Normal 80.0 - 99.0 fL Workflow SS Monocyte distribution width Auto (Bld) [Entitic vol] 15.48 1 Normal 0.00 - 20.00 Workflow SS Comment on above: Result Comment: For ED adult patients suspected of sepsis, MDW<=20.0 does not rule out sepsis or risk of sepsis Monocytes (Bld) [#/Vol] 0.6 103/mcL Normal 0.1 - 1.4 10^3/mcL AH Workflow SS Monocytes/100 WBC (Bld) 9.2 % Normal 2.0 - 13.0 % AH Workflow SS Natriuretic peptide.B prohormone N-Terminal IA [Mass/Vol] 132 pg/mL Normal 0 - 900 pg/mL ADM SS Neutrophils (Bld) [#/Vol] 4.3 103/mcL Normal 2.3 - 8.1 10^3/mcL AH Workflow SS Neutrophils/100 WBC (Bld) 64.4 % Normal 50.0 - 75.0 % AH Workflow SS Platelet mean volume (Bld) [Entitic vol] 9.0 fL Normal 6.6 - 10.5 fL AH Workflow SS Platelets (Bld) [#/Vol] 222 103/mcL Normal 150 - 450 10^3/mcL AH Workflow SS Potassium [Moles/Vol] 3.7 mmol/L Normal 3.5 - 5.0 mEq/L ADM SS RBC (Bld) [#/Vol] 3.83 106/mcL Low 4.10 - 5.30 10^6/mcL AH Workflow SS Sodium [Moles/Vol] 143 mmol/L Normal 136 - 145 mEq/L ADM SS Troponin I.cardiac DL <= 0.01 ng/mL [Mass/Vol] ng/L Normal 0 - 34 ng/L ADM SS Comment on above: Interpretive Data: High Sensitive Troponin I Reference Ranges: Female: 0-34 ng/L Male: 0-54 ng/L Testing performed on [employer] analyzer using direct chemiluminescent technology. Urea nitrogen [Mass/Vol] 13.0 mg/dL Normal 8.0 - 22.0 mg/dL ADM SS Urea nitrogen/Creatinine [Mass ratio] 24.5 ratio High 10.0 - 22.0 ratio ADM SS WBC (Bld) [#/Vol] 6.7 103/mcL Normal 4.5 - 10.8 10^3/mcL AH Workflow SS PBNPon 02-16-2024 Natriuretic peptide B (Bld) [Mass/Vol] 132 pg/mL Normal 0-900 [facility] MAIN Comment on above: Performed By: #### G FR, CBC, ADIFF, IVORY, W, LUZ MARIA, KATHIE, BMP #### [address] [address] TROPHSon 02-16-2024 High Sensitivity Troponin I <3 Normal 0-34 [facility] MAIN Comment on above: Result Comment: High Sensitive Troponin I Reference Ranges: Female: 0-34 ng/L Male: 0-54 ng/L Testing performed on [employer] IM analyzer using direct chemiluminescent technology. Performed By: #### G FR, CBC, ADCRISTINO, IVORY, JUSTINA, LUZ MARIA, KATHIE, BMP #### [address] [address] XR CHEST 1 VIEWon 02-16-2024 XR CHEST 1 VIEW ORIGINAL EXAMINATION: ONE XRAY VIEW OF THE CHEST02/16/2024 11:37 am COMPARISON: 09/23/2021 HISTORY: ORDERING SYSTEM PROVIDED HISTORY: Reason for Exam: chest pain FINDINGS: The cardiomediastinal contours are normal. There is no consolidation, vascular congestion, pleural effusion, or pneumothorax. There are no acute abnormalities to osseous structures. IMPRESSION: No acute radiographic findings. Interpreted by: Aren Staples DO Preliminary Report By: Aren Staples DO Electronically signed By Aren Staples DO Dictated Date: 02/16/2024 11:40:22 AM Prelim Date: 02/16/2024 11:42:13 AM Sign Date: 02/16/2024 11:42:13 AM Ordering Provider: JESSE MEDINA [facility] MAIN XR SHOULDER MINIMUM 2 VIEWS LEFTon 02-16-2024 XR SHOULDER MINIMUM 2 VIEWS LEFT ORIGINAL EXAMINATION: TWO XRAY VIEWS OF THE LEFT [id number]/2/2024 11:37 am COMPARISON: None HISTORY: ORDERING SYSTEM PROVIDED HISTORY: Reason for Exam: pain FINDINGS: There is no glenohumeral fracture or dislocation. There is no acromioclavicular joint widening. There is minimal AC joint spurring. The coracoclavicular distance is maintained. The included thoracic structures are normal. IMPRESSION: No acute fracture or dislocation. Interpreted by: Aren Staples DO Preliminary Report By: Aren Staples DO Electronically signed By Aren Staples DO Dictated Date: 02/16/2024 11:38:45 AM Prelim Date: 02/16/2024 11:39:53 AM Sign Date: 02/16/2024 11:39:53 AM Ordering Provider: JESSE MEDINA [facility] MAIN CT THORAX SCREENING W/O CONT Jameson 01-23-2024 CT THORAX SCREENING W/O CONTRAST ORIGINAL EXAMINATION: LOW DOSE SCREENING CT OF THE CHEST WITHOUT NYJCAWPB36/7/2024 11:00 am TECHNIQUE: Low dose lung cancer screening CT of the chest was performed without the administration of intravenous contrast. Multiplanar reformatted images are provided for review. Automated exposure control, iterative reconstruction, and/or weight based adjustment of the mA/kV was utilized to reduce the radiation dose to as low as reasonably achievable. COMPARISON: None. HISTORY: ORDERING SYSTEM PROVIDED HISTORY: Reason for Exam: TOBACCO USE DISORDER. SCREENING FOR RESPIRATORY MALIGNANCY pt former smoker 1ppd x 35yrs,quit at age 55 FINDINGS: The heart is normal in size. Atherosclerosis seen of the coronary arteries and aorta. The great vessels appear normal in caliber. No lymphadenopathy is visible on this unenhanced exam. No suspicious findings seen in the visualized portion of the abdomen. The abdomen is not evaluated in detail. A 3-4 mm right middle lobe nodule is identified on image 81, unchanged. A 3-4 mm left lower lobe nodule on image 89 is unchanged. No pulmonary consolidation is identified. No pneumothorax or pleural effusion. No aggressive osseous lesions visible. Degenerative changes seen in the spine. IMPRESSION: Unchanged lung nodules. For patients with appropriate lung cancer risk, annual CT screening is recommended. Atherosclerosis with coronary artery calcifications Information below is for Lung nodule tracking purposes: Nodule: S3 Other Findings: P-CAC Change: No Change Recall : 1yr scr Recall Type: LDCT LungRads: 2s Interpreted by: Tj Thayer MD Preliminary Report By: Tj Thayer MD Electronically signed By Tj Thayer MD Dictated Date: 01/23/2024 3:18:20 PM Prelim Date: 01/23/2024 3:42:12 PM Sign Date: 01/23/2024 3:42:12 PM Ordering Provider: BRITTON Barry [place] ADRIANSHWETHA BD BONE DENSITY DEXA AXIAL S Almaz 07-15-2023 BD BONE DENSITY DEXA AXIAL SKELETON ORIGINAL EXAMINATION: BONE DENSITOMETRY07/15/2023 10:07 am TECHNIQUE: Dual energy bone densitometry lumbar spine and left hip. COMPARISON: October 19, 2013 HISTORY: ORDERING SYSTEM PROVIDED HISTORY: OSTEOPOROSIS Osteoporosis screening FINDINGS: L1-L4: T score= -2.4 BMD= 0.890 g/cm2 Left femoral neck: T score= -3.0 BMD= 0.615 g/cm2 Left hip: T score= -2.5 BMD= 0.689 g/cm2 L1-L4 PRIOR BMD: 0.752 g/cm2. Left femoral neck PRIOR BMD: 0.521 g/cm2. Left hip PRIOR BMD: 0.765 g/cm2. FRAX score: 10 year risk major osteoporotic fracture 22.1 %. 10 year risk hip fracture 6.9 %. The BHOF f/k/a NOF recommends that FDA-approved medical therapies be considered in post-menopausal women and men age >/= 50 years with a: * Hip or vertebral fracture, or * T-score of /= 20% for major osteoporotic fractures or * >/= 3% for hip fractures All treatment decisions require clinical judgement and consideration of individual patient factors, including patient preferences, comorbidities, previous drug use, risk factors not captured in the FRAX registered model (e.g., frailty, falls, vitamin D deficiency, increased bone turnover, interval significant decline in bone density) and possible under- or over-estimation of fracture risk by FRAX. IMPRESSION: Osteoporosis. Interpreted by: Chyna Miller MD Preliminary Report By: Chyna Miller MD Electronically signed By Chyna Miller MD Dictated Date: 07/15/2023 5:06:32 PM Prelim Date: 07/15/2023 5:08:18 PM Sign Date: 07/15/2023 5:08:18 PM Ordering Provider: ELLIOTT Barry [facility] ([place]) FT3on 06-30-2023 Free T3 [Mass/Vol] 3.98 pg/mL Normal 2.30-4.20 [facility] ([place]) Comment on above: Performed By: #### T SH, CMP, ADIFF, LIPID, GFR, CBC, ANEU, A1C #### [place] [id number] [place] [id number] FT4on 06-30-2023 Free T4 [Mass/Vol] 1.01 ng/dL Normal 0.89-1.76 [facility] ([place]) Comment on above: Result Comment: No te - New Reference Range in effect 19 Performed By: #### F T3, VIDH, TSH, FT4 #### [address] [address] TSHon 06-30-2023 TSH 1.314 mIU/mL Normal 0.550-4.78 0 [facility] ([place]) Comment on above: Result Comment: No te - New Reference Range in effect 19 Performed By: #### F T3, VIDH, TSH, FT4 #### [place] [address] VIDHon 06-30-2023 Vit. D 25-Hydroxy 31.3 ng/mL Normal [facility] ([place]) Comment on above: Result Comment: Inte rpretive Values Based on Total 25(OH)D: Severe Deficiency <20 ng/mL Mild to Moderate Deficiency 20-30 ng/mL Optimum Levels 30-100 ng/mL Toxicity Possible >100 ng/mL Performed By: #### T SH, CMP, ADIFF, LIPID, GFR, CBC, ANEU, A1C #### [address] [address] [place] MAMMOGRAM SCREENING BILAT ERAL W/TOMOon 02-12-2023 MA MAMMOGRAM SCREENING BILATERAL W/JUAN PABLO ORIGINAL FROM: [address] [address] PROCEDURE FOR: ARLENE ELIZABETH [address] [place] [id number] Home: Work: PID#: [id number] Exam#: [id number] : 1965 Age: 57 TO: CASTRO GARVEY DO [address] [facility] [facility] [address] [place], [place] [address] EXAMINATION: SCREENING DIGITAL BILATERAL MAMMOGRAM WITH TOMOSYNTHESIS, 02/12/2023 6:49 am TECHNIQUE: Screening mammography of the bilateral breasts was performed with tomosynthesis. 2D standard and 3D tomosynthesis combination imaging performed through both breasts in the MLO and CC projection. Computer aided detection was utilized in the interpretation of this exam. COMPARISON: 01/15/2022, 06/24/2020 HISTORY: Breast cancer screening. FINDINGS: BREAST DENSITY: Scattered fibroglandular tissue There are postoperative changes in the right breast. There are no significant masses or calcifications. IMPRESSION: No mammographic evidence of malignancy. Continued screening with annual mammograms is recommended. Summer Youssef risk calculations, generated with the history provided, report this patient's 10 year risk and lifetime risk for developing breast cancer at 1.3% and 4.1%, respectively. Based on this assessment tool, if the patient's calculated lifetime risk is below 20%, then the patient is considered at average risk for developing breast cancer. If the patient's calculated lifetime risk is at or above 20%, then the patient is considered high risk for developing breast cancer and may be a candidate for supplemental breast MRI screening in addition to annual mammographic screening per the [employer]. BIRADS: MAMMOGRAM BI-RADS: 2: Benign finding RECALL: 1 year screening RECALL TYPE: mammo LETTER SENT: Normal BI-RADS 1 and 2 Interpreted by: Aren Callahan MD Preliminary Report By: Aren Callahan MD Electronically signed By Aren Callahan MD Dictated Date: 02/12/2023 4:45:57 PM Prelim Date: 02/12/2023 4:51:05 PM Sign Date: 02/12/2023 4:51:05 PM Ordering Provider: ELLIOTT GILLIS copy to: APRYL MOREJON MD, [facility], ph: [phone], fax: NO FAX Sales Agent Fire Insurance: HERNANDEZ BEAN RT(R)(M) letter sent: Normal BI-RADS 1 and 2 Mammogram BI-RADS: 2 Benign Normal [facility] ([place]) [id number] 02-10-2023 Reverse T3 9.2 ng/dL Normal 9.0-27.0 [facility] ([place]) Comment on above: Result Comment: INTE RPRETIVE INFORMATION: Triiodothyronine, Reverse - LC-MS/MS This test was developed and its performance characteristics determined by [facility]. It has not been cleared or approved by the [place] Food and Drug Administration. This test was performed in a CLIA certified laboratory and is intended for clinical purposes. Performed By: [facility] [address] [place] [id number] Community Product Specialist: Marlon Martines MD, PhD CLIA Number: [id number] Performed By: #### T SH, CMP, ADIFF, LIPID, GFR, CBC, ANEU, A1C #### [place] [address] CT THORAX SCREENING W/O CONT [facility] 02-05-2023 CT THORAX SCREENING W/O CONTRAST ORIGINAL EXAMINATION: LOW DOSE SCREENING CT OF THE CHEST WITHOUT MAFKXEAU91/22/2023 9:43 am TECHNIQUE: Low dose lung cancer screening CT of the chest was performed without the administration of intravenous contrast. Multiplanar reformatted images are provided for review. Automated exposure control, iterative reconstruction, and/or weight based adjustment of the mA/kV was utilized to reduce the radiation dose to as low as reasonably achievable. COMPARISON: CT chest 09/12/2021. HISTORY: ORDERING SYSTEM PROVIDED HISTORY: Reason for Exam: PER HX OF TOBACCO USE pt former smoker 1ppd x 35yrs, quit at age 55 FINDINGS: Lung nodules: Right lun. Stable 3 mm nodule in the lateral segment of the middle lobe, image 58, series 4. Left lun. Stable 3 mm nodule in the anterolateral lower lobe, image 62, series 4. Lung findings: Right lung: No acute process. Left lung: No acute process. 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 Coronary artery calcification. Pleura: Unremarkable. Other: Included abdominal viscera limited imaging of the upper abdomen reveals no gross abnormality. IMPRESSION: 1. Lung rads category 2 S: Recommendation: Continue low-dose annual screening. Information below is for Lung nodule tracking purposes: Nodule: S3 Other Findings: P-CAC Change: No Change Recall : 1yr scr Recall Type: LDCT LungRads: 2s Interpreted by: Richard Godfrey Preliminary Report By: Richard Godfrey Electronically signed By Richard Godfrey Dictated Date: 02/05/2023 3:08:39 PM Prelim Date: 02/05/2023 3:13:53 PM Sign Date: 02/05/2023 3:13:53 PM Ordering Provider: ELLIOTT Barry [facility] ([place]) FT4on 01-31-2023 Free T4 [Mass/Vol] 0.97 ng/dL Normal 0.89-1.76 [facility] ([place]) Comment on above: Result Comment: No te - New Reference Range in effect 19 Performed By: #### T SH, CMP, ADIFF, LIPID, GFR, CBC, ANEU, A1C #### [place] [address] TCANCon 01-31-2023 Test cancelled: REVT3 Normal [facility] ([place]) Comment on above: Performed By: #### T SH, CMP, ADIFF, LIPID, GFR, CBC, ANEU, A1C #### [place] [address] TSHon 01-31-2023 TSH 1.325 mIU/mL Normal 0.550-4.78 0 [facility] ([place]) Comment on above: Result Comment: No te - New Reference Range in effect 19 Performed By: #### T SH, CMP, ADIFF, LIPID, GFR, CBC, ANEU, A1C #### [place] [address] .Auto Diffon 01-22-2023 Basophil, Absolute 0.0 10 3/mcL Normal 0.0-0.3 [facility] ([place]) Comment on above: Performed By: #### T SH, CMP, ADIFF, LIPID, GFR, CBC, ANEU, A1C #### [place] [address] Basophils/100 WBC (Bld) 0.5 % Normal 0.0-2.5 [facility] ([place]) Comment on above: Performed By: #### T SH, CMP, ADIFF, LIPID, GFR, CBC, ANEU, A1C #### [address] [address] Eosinophil, Absolute 0.2 10 3/mcL Normal 0.0-0.7 [facility] ([place]) Comment on above: Performed By: #### T SH, CMP, ADIFF, LIPID, GFR, CBC, ANEU, A1C #### [address] [address] Eosinophils/100 WBC (Bld) 2.3 % Normal 0.0-6.0 [facility] ([place]) Comment on above: Performed By: #### T SH, CMP, ADIFF, LIPID, GFR, CBC, ANEU, A1C #### [address] [address] Lymphocyte, Absolute 1.6 10 3/mcL Normal 0.9-4.3 [facility] ([place]) Comment on above: Performed By: #### T SH, CMP, ADIFF, LIPID, GFR, CBC, ANEU, A1C #### [address] [address] Lymphocytes/100 WBC (Bld) 22.8 % Normal 20.0-40.0 [facility] ([place]) Comment on above: Performed By: #### T SH, CMP, ADIFF, LIPID, GFR, CBC, ANEU, A1C #### [address] [address] Monocyte, Absolute 0.5 10 3/mcL Normal 0.1-1.4 [facility] ([place]) Comment on above: Performed By: #### T SH, CMP, ADIFF, LIPID, GFR, CBC, ANEU, A1C #### [address] [address] Monocytes/100 WBC (Bld) 7.5 % Normal 2.0-13.0 [facility] ([place]) Comment on above: Performed By: #### T SH, CMP, ADIFF, LIPID, GFR, CBC, ANEU, A1C #### [address] [address] Neutrophils/100 WBC (Bld) 66.9 % Normal 50.0-75.0 [facility] ([place]) Comment on above: Performed By: #### T SH, CMP, ADIFF, LIPID, GFR, CBC, ANEU, A1C #### [address] [address] .GFRon 01-22-2023 GFR Non- >60 Normal [facility] ([place]) Comment on above: Result Comment: GFR Population mean for , Non- Americans Ages 20-29 = 116 mL/min/1.73 sq.m. Ages 30-39 = 107 mL/min/1.73 sq.m. Ages 40-49 = 99 mL/min/1.73 sq.m. Ages 50-59 = 93 mL/min/1.73 sq.m. Ages 60-69 = 85 mL/min/1.73 sq.m. Ages 70+ = 75 mL/min/1.73 sq.m. Chronic Kidney Disease: Less than 60 mL/min/1.73 square meters End Stage Renal Disease: Less than 15 mL/min/1.73 square meters Performed By: #### T SH, CMP, ADIFF, LIPID, GFR, CBC, ANEU, A1C #### [place] [id number] GFR >60 Normal [facility] ([place]) Comment on above: Result Comment: GFR Population mean for , Non- Americans Ages 20-29 = 116 mL/min/1.73 sq.m. Ages 30-39 = 107 mL/min/1.73 sq.m. Ages 40-49 = 99 mL/min/1.73 sq.m. Ages 50-59 = 93 mL/min/1.73 sq.m. Ages 60-69 = 85 mL/min/1.73 sq.m. Ages 70+ = 75 mL/min/1.73 sq.m. Chronic Kidney Disease: Less than 60 mL/min/1.73 square meters End Stage Renal Disease: Less than 15 mL/min/1.73 square meters Performed By: #### T SH, CMP, ADIFF, LIPID, GFR, CBC, ANEU, A1C #### [address] [address] .NEUABSon 01-22-2023 Neutrophil, Absolute 4.7 10 3/mcL Normal 2.3-8.1 [facility] ([place]) Comment on above: Performed By: #### T SH, CMP, ADIFF, LIPID, GFR, CBC, ANEU, A1C #### [address] [address] A1Con 01-22-2023 HbA1c (Bld) [Mass fraction] 5.4 % Normal 4.0-6.0 [facility] ([place]) Comment on above: Performed By: #### T SH, CMP, ADIFF, LIPID, GFR, CBC, ANEU, A1C #### [place] [id number] CBCon 01-22-2023 Erythrocyte distribution width (RBC) [Ratio] 14.6 % Normal 11.5-15.5 [facility] ([place]) Comment on above: Performed By: #### T SH, CMP, ADIFF, LIPID, GFR, CBC, ANEU, A1C #### [place] [address] Hematocrit (Bld) [Volume fraction] 37.1 % Normal 34.0-46.0 [facility] ([place]) Comment on above: Performed By: #### T SH, CMP, ADIFF, LIPID, GFR, CBC, ANEU, A1C #### [place] [address] Hgb 12.3 G/dL Normal 12.0-16.0 [facility] ([place]) Comment on above: Performed By: #### T SH, CMP, ADIFF, LIPID, GFR, CBC, ANEU, A1C #### [place] [address] MCH (RBC) [Entitic mass] 28.7 pg Normal 27.0-33.0 [facility] ([place]) Comment on above: Performed By: #### T SH, CMP, ADIFF, LIPID, GFR, CBC, ANEU, A1C #### [place] [address] MCHC 33.1 G/dL Normal 32.0-36.0 [facility] ([place]) Comment on above: Performed By: #### T SH, CMP, ADIFF, LIPID, GFR, CBC, ANEU, A1C #### [place] [id number] MCV (RBC) [Entitic vol] 86.6 fL Normal 80.0-99.0 [facility] ([place]) Comment on above: Performed By: #### T SH, CMP, ADIFF, LIPID, GFR, CBC, ANEU, A1C #### [place] [address] Platelet 190 10 3/mcL Normal 150-450 [facility] ([place]) Comment on above: Performed By: #### T SH, CMP, ADIFF, LIPID, GFR, CBC, ANEU, A1C #### [place] [address] Platelet mean volume (Bld) [Entitic vol] 11.1 fL High 6.6-10.5 [facility] ([place]) Comment on above: Performed By: #### T SH, CMP, ADIFF, LIPID, GFR, CBC, ANEU, A1C #### [place] [address] RBC 4.28 10 6/mcL Normal 4.10-5.30 [facility] ([place]) Comment on above: Performed By: #### T SH, CMP, ADIFF, LIPID, GFR, CBC, ANEU, A1C #### [place] [address] WBC 7.0 10 3/mcL Normal 4.5-10.8 [facility] ([place]) Comment on above: Performed By: #### T SH, CMP, ADIFF, LIPID, GFR, CBC, ANEU, A1C #### [place] [address] CMPon 01-22-2023 Albumin Level 4.6 G/dL Normal 3.2-4.8 [facility] ([place]) Comment on above: Performed By: #### T SH, CMP, ADIFF, LIPID, GFR, CBC, ANEU, A1C #### [place] [address] Albumin/Globulin [Mass ratio] 1.6 {ratio} Normal 0.9-1.6 [facility] ([place]) Comment on above: Performed By: #### T SH, CMP, ADIFF, LIPID, GFR, CBC, ANEU, A1C #### [address] [address] ALP [Catalytic activity/Vol] 86 U/L Normal 38-126 [facility] ([place]) Comment on above: Performed By: #### T SH, CMP, ADIFF, LIPID, GFR, CBC, ANEU, A1C #### [address] [address] ALT [Catalytic activity/Vol] 10 U/L Normal 10-49 [facility] ([place]) Comment on above: Performed By: #### T SH, CMP, ADIFF, LIPID, GFR, CBC, ANEU, A1C #### [address] [address] AST [Catalytic activity/Vol] 15 U/L Normal 8-34 [facility] ([place]) Comment on above: Performed By: #### T SH, CMP, ADIFF, LIPID, GFR, CBC, ANEU, A1C #### [address] [address] Bili Total 0.40 mg/dL Normal 0.20-1.20 [facility] ([place]) Comment on above: Result Comment: Use of this assay is not recommended for patients undergoing treatment with eltrombopag due to the potential for falsely elevated results. Performed By: #### T SH, CMP, ADIFF, LIPID, GFR, CBC, ANEU, A1C #### [address] [address] BUN/Creatinine Ratio 38.6 ratio High 10.0-22.0 [facility] ([place]) Comment on above: Performed By: #### T SH, CMP, ADIFF, LIPID, GFR, CBC, ANEU, A1C #### [address] [address] Calcium [Mass/Vol] 9.9 mg/dL Normal 8.7-10.4 [facility] ([place]) Comment on above: Performed By: #### T SH, CMP, ADIFF, LIPID, GFR, CBC, ANEU, A1C #### [address] [address] Chloride [Moles/Vol] 106 mmol/L Normal 98-110 [facility] ([place]) Comment on above: Performed By: #### T SH, CMP, ADIFF, LIPID, GFR, CBC, ANEU, A1C #### [address] [address] CO2 [Moles/Vol] 29 mmol/L Normal 22-32 [facility] ([place]) Comment on above: Performed By: #### T SH, CMP, ADIFF, LIPID, GFR, CBC, ANEU, A1C #### [address] [address] Creatinine [Mass/Vol] 0.44 mg/dL Low 0.50-1.20 [facility] ([place]) Comment on above: Performed By: #### T SH, CMP, ADIFF, LIPID, GFR, CBC, ANEU, A1C #### [address] [address] Electrolyte Balance 7.0 mEq/L Normal 4.0-15.0 [facility] ([place]) Comment on above: Performed By: #### T SH, CMP, ADIFF, LIPID, GFR, CBC, ANEU, A1C #### [address] [address] Globulin 2.8 G/dL Normal 1.5-3.8 [facility] ([place]) Comment on above: Performed By: #### T SH, CMP, ADIFF, LIPID, GFR, CBC, ANEU, A1C #### [address] [address] Glucose [Mass/Vol] 96 mg/dL Normal 70-110 [facility] ([place]) Comment on above: Performed By: #### T SH, CMP, ADIFF, LIPID, GFR, CBC, ANEU, A1C #### [address] [address] Potassium [Moles/Vol] 3.8 mmol/L Normal 3.5-5.0 [facility] ([place]) Comment on above: Performed By: #### T SH, CMP, ADIFF, LIPID, GFR, CBC, ANEU, A1C #### [address] [address] Sodium [Moles/Vol] 142 mmol/L Normal 136-145 [facility] ([place]) Comment on above: Performed By: #### T SH, CMP, ADIFF, LIPID, GFR, CBC, ANEU, A1C #### [address] [address] Total Protein 7.4 G/dL Normal 5.7-8.2 [facility] ([place]) Comment on above: Result Comment: No te - New Reference Range in effect 19 Performed By: #### T SH, CMP, ADIFF, LIPID, GFR, CBC, ANEU, A1C #### [address] [address] Urea nitrogen [Mass/Vol] 17.0 mg/dL Normal 8.0-22.0 [facility] ([place]) Comment on above: Performed By: #### T SH, CMP, ADIFF, LIPID, GFR, CBC, ANEU, A1C #### [address] [address] LIPIDon 01-22-2023 Cholesterol [Mass/Vol] 165 mg/dL Normal 50-199 [facility] ([place]) Comment on above: Result Comment: Chol esterol Reference Interval: Less than 200 Desirable 200-239 Borderline high risk 240 and above High risk Performed By: #### T SH, CMP, ADIFF, LIPID, GFR, CBC, ANEU, A1C #### [address] [address] Cholesterol in HDL [Mass/Vol] 60 mg/dL High 40-59 [facility] ([place]) Comment on above: Performed By: #### T SH, CMP, ADIFF, LIPID, GFR, CBC, ANEU, A1C #### [address] [address] Cholesterol in LDL [Mass/Vol] 82 mg/dL Normal 0-129 [facility] ([place]) Comment on above: Performed By: #### T SH, CMP, ADIFF, LIPID, GFR, CBC, ANEU, A1C #### [address] [address] Triglyceride [Mass/Vol] 113 mg/dL Normal 3-149 [facility] ([place]) Comment on above: Performed By: #### T SH, CMP, ADIFF, LIPID, GFR, CBC, ANEU, A1C #### [address] [address] TSHon 01-22-2023 TSH 0.490 mIU/mL Low 0.550-4.78 0 [facility] ([place]) Comment on above: Result Comment: No te - New Reference Range in effect 19 Performed By: #### T SH, CMP, ADIFF, LIPID, GFR, CBC, ANEU, A1C #### [address] [address] LABORATORYOrdered By: SYSTEM SYSTEM on 10-02-2021 Calcium [Mass/Vol] 8.9 mg/dL Invalid Interpretation Code 8.7 - 10.4 mg/dL ADM SS Chloride [Moles/Vol] 104 mmol/L Invalid Interpretation Code 98 - 110 mEq/L ADM SS CO2 [Moles/Vol] 28 mmol/L Invalid Interpretation Code 22 - 32 mEq/L ADM SS Creatinine [Mass/Vol] 0.42 mg/dL Invalid Interpretation Code 0.50 - 1.20 mg/dL ADM SS Electrolyte Balance 9.0 mEq/L Invalid Interpretation Code 4.0 - 15.0 mEq/L AH ADM SS GFR/1.73 sq M.predicted among blacks MDRD (S/P/Bld) [Vol rate/Area] ml/min/1.73sqm Invalid Interpretation Code AH Chemistry S GFR/1.73 sq M.predicted among non-blacks MDRD (S/P/Bld) [Vol rate/Area] ml/min/1.73sqm Invalid Interpretation Code Chemistry S Glucose [Mass/Vol] 93 mg/dL Invalid Interpretation Code 70 - 110 mg/dL ADM SS Magnesium [Mass/Vol] 1.8 mg/dL Invalid Interpretation Code 1.6 - 2.4 mg/dL ADM SS Potassium [Moles/Vol] 4.1 mmol/L Invalid Interpretation Code 3.5 - 5.0 mEq/L AH ADM SS Comment on above: Result Comment: Spec imen slightly hemolyzed. Sodium [Moles/Vol] 141 mmol/L Invalid Interpretation Code 136 - 145 mEq/L ADM SS Urea nitrogen [Mass/Vol] 13.0 mg/dL Invalid Interpretation Code 8.0 - 22.0 mg/dL ADM SS Urea nitrogen/Creatinine [Mass ratio] 31.0 ratio Invalid Interpretation Code 10.0 - 22.0 ratio AH ADM SS LABORATORYOrdered By: SYSTEM SYSTEM on 09-28-2021 Calcium [Mass/Vol] 8.4 mg/dL Invalid Interpretation Code 8.7 - 10.4 mg/dL ADM SS Chloride [Moles/Vol] 106 mmol/L Invalid Interpretation Code 98 - 110 mEq/L ADM SS CO2 [Moles/Vol] 26 mmol/L Invalid Interpretation Code 22 - 32 mEq/L ADM SS Creatinine [Mass/Vol] 0.47 mg/dL Invalid Interpretation Code 0.50 - 1.20 mg/dL ADM SS Electrolyte Balance 8.0 mEq/L Invalid Interpretation Code 4.0 - 15.0 mEq/L ADM SS GFR/1.73 sq M.predicted among blacks MDRD (S/P/Bld) [Vol rate/Area] ml/min/1.73sqm Invalid Interpretation Code Chemistry S GFR/1.73 sq M.predicted among non-blacks MDRD (S/P/Bld) [Vol rate/Area] ml/min/1.73sqm Invalid Interpretation Code Chemistry S Glucose [Mass/Vol] 79 mg/dL Invalid Interpretation Code 70 - 110 mg/dL ADM SS Magnesium [Mass/Vol] 1.8 mg/dL Invalid Interpretation Code 1.6 - 2.4 mg/dL ADM SS Potassium [Moles/Vol] 3.4 mmol/L Invalid Interpretation Code 3.5 - 5.0 mEq/L ADM SS Sodium [Moles/Vol] 140 mmol/L Invalid Interpretation Code 136 - 145 mEq/L ADM SS Urea nitrogen [Mass/Vol] 6.0 mg/dL Invalid Interpretation Code 8.0 - 22.0 mg/dL ADM SS Urea nitrogen/Creatinine [Mass ratio] 12.8 ratio Invalid Interpretation Code 10.0 - 22.0 ratio ADM SS LABORATORYOrdered By: SYSTEM SYSTEM on 09-27-2021 Basophils (Bld) [#/Vol] 0.0 103/mcL Invalid Interpretation Code 0.0 - 0.3 10^3/mcL Workflow SS Basophils/100 WBC (Bld) 0.1 % Invalid Interpretation Code 0.0 - 2.5 % Workflow SS Calcium [Mass/Vol] 8.3 mg/dL Invalid Interpretation Code 8.7 - 10.4 mg/dL ADM SS Calcium [Mass/Vol] 8.5 mg/dL Invalid Interpretation Code 8.7 - 10.4 mg/dL ADM SS Chloride [Moles/Vol] 107 mmol/L Invalid Interpretation Code 98 - 110 mEq/L ADM SS Chloride [Moles/Vol] 106 mmol/L Invalid Interpretation Code 98 - 110 mEq/L ADM SS CO2 [Moles/Vol] 28 mmol/L Invalid Interpretation Code 22 - 32 mEq/L ADM SS CO2 [Moles/Vol] 29 mmol/L Invalid Interpretation Code 22 - 32 mEq/L ADM SS Creatinine [Mass/Vol] 0.44 mg/dL Invalid Interpretation Code 0.50 - 1.20 mg/dL ADM SS Creatinine [Mass/Vol] 0.43 mg/dL Invalid Interpretation Code 0.50 - 1.20 mg/dL ADM SS Eosinophils (Bld) [#/Vol] 0.0 103/mcL Invalid Interpretation Code 0.0 - 0.7 10^3/mcL Workflow SS Eosinophils/100 WBC (Bld) 0.1 % Invalid Interpretation Code 0.0 - 6.0 % Workflow SS Erythrocyte distribution width (RBC) [Ratio] 14.9 % Invalid Interpretation Code 11.5 - 15.5 % Workflow SS GFR/1.73 sq M.predicted among blacks MDRD (S/P/Bld) [Vol rate/Area] ml/min/1.73sqm Invalid Interpretation Code Chemistry S GFR/1.73 sq M.predicted among non-blacks MDRD (S/P/Bld) [Vol rate/Area] ml/min/1.73sqm Invalid Interpretation Code Chemistry S Glucose [Mass/Vol] 99 mg/dL Invalid Interpretation Code 70 - 110 mg/dL ADM SS Glucose [Mass/Vol] 97 mg/dL Invalid Interpretation Code 70 - 110 mg/dL ADM SS Hematocrit (Bld) [Volume fraction] 26.9 % Invalid Interpretation Code 34.0 - 46.0 % Workflow SS Hemoglobin (Bld) [Mass/Vol] 9.1 G/dL Invalid Interpretation Code 12.0 - 16.0 G/dL Workflow SS Lymphocytes (Bld) [#/Vol] 1.0 103/mcL Invalid Interpretation Code 0.9 - 4.3 10^3/mcL AH Workflow SS Lymphocytes/100 WBC (Bld) 14.6 % Invalid Interpretation Code 20.0 - 40.0 % AH Workflow SS Magnesium [Mass/Vol] 1.2 mg/dL Invalid Interpretation Code 1.6 - 2.4 mg/dL AH ADM SS MCH (RBC) [Entitic mass] 28.0 pg Invalid Interpretation Code 27.0 - 33.0 pg AH Workflow SS MCHC 33.9 G/dL Invalid Interpretation Code 32.0 - 36.0 G/dL AH Workflow SS MCV (RBC) [Entitic vol] 82.9 fL Invalid Interpretation Code 80.0 - 99.0 fL AH Workflow SS Monocyte distribution width Auto (Bld) [Entitic vol] Not Performed 2 *NA* (09/27/21 2:19 PM) Invalid Interpretation Code 0.00 - 20.00 Hematology S Comment on above: Result Comment: MDW testing performed only on adult ER patients between the ages of 18-89 years. Monocytes (Bld) [#/Vol] 0.6 103/mcL Invalid Interpretation Code 0.1 - 1.4 10^3/mcL AH Workflow SS Monocytes/100 WBC (Bld) 9.3 % Invalid Interpretation Code 2.0 - 13.0 % AH Workflow SS Neutrophils (Bld) [#/Vol] 5.2 103/mcL Invalid Interpretation Code 2.3 - 8.1 10^3/mcL AH Workflow SS Neutrophils/100 WBC (Bld) 75.9 % Invalid Interpretation Code 50.0 - 75.0 % AH Workflow SS Platelet mean volume (Bld) [Entitic vol] 9.2 fL Invalid Interpretation Code 6.6 - 10.5 fL AH Workflow SS Platelets (Bld) [#/Vol] 179 103/mcL Invalid Interpretation Code 150 - 450 10^3/mcL AH Workflow SS Potassium [Moles/Vol] 3.4 mmol/L Invalid Interpretation Code 3.5 - 5.0 mEq/L AH ADM SS Comment on above: Result Comment: Spec imen slightly hemolyzed. Potassium [Moles/Vol] 3.2 mmol/L Invalid Interpretation Code 3.5 - 5.0 mEq/L ADM SS RBC (Bld) [#/Vol] 3.24 106/mcL Invalid Interpretation Code 4.10 - 5.30 10^6/mcL AH Workflow SS Urea nitrogen/Creatinine [Mass ratio] ratio Invalid Interpretation Code 10.0 - 22.0 ratio ADM SS Urea nitrogen/Creatinine [Mass ratio] ratio Invalid Interpretation Code 10.0 - 22.0 ratio ADM SS WBC 6.8 103/mcL Invalid Interpretation Code 4.5 - 10.8 10^3/mcL Workflow SS Laboratory - Chemistry and C hemistry - challengeOrdered By: SYSTEM SYSTEM on 09-27-2021 Sodium [Moles/Vol] 142 mmol/L Invalid Interpretation Code 136 - 145 mEq/L ADM SS Urea nitrogen [Mass/Vol] mg/dL Invalid Interpretation Code 8.0 - 22.0 mg/dL ADM SS No Panel InformationOrdered By: SYSTEM SYSTEM on 09-27-2021 Electrolyte Balance 7.0 mEq/L Invalid Interpretation Code 4.0 - 15.0 mEq/L ADM SS LABORATORYOrdered By: SYSTEM SYSTEM on 09-26-2021 Basophils (Bld) [#/Vol] 0.0 103/mcL Invalid Interpretation Code 0.0 - 0.3 10^3/mcL Workflow SS Basophils/100 WBC (Bld) 0.2 % Invalid Interpretation Code 0.0 - 2.5 % Workflow SS Eosinophils (Bld) [#/Vol] 0.0 103/mcL Invalid Interpretation Code 0.0 - 0.7 10^3/mcL Workflow SS Eosinophils/100 WBC (Bld) 0.1 % Invalid Interpretation Code 0.0 - 6.0 % Workflow SS Erythrocyte distribution width (RBC) [Ratio] 14.9 % Invalid Interpretation Code 11.5 - 15.5 % Workflow SS GFR/1.73 sq M.predicted among blacks MDRD (S/P/Bld) [Vol rate/Area] ml/min/1.73sqm Invalid Interpretation Code Chemistry S GFR/1.73 sq M.predicted among non-blacks MDRD (S/P/Bld) [Vol rate/Area] ml/min/1.73sqm Invalid Interpretation Code Chemistry S Hematocrit (Bld) [Volume fraction] 25.3 % Invalid Interpretation Code 34.0 - 46.0 % Workflow SS Hemoglobin (Bld) [Mass/Vol] 8.5 G/dL Invalid Interpretation Code 12.0 - 16.0 G/dL Workflow SS Lymphocytes (Bld) [#/Vol] 0.8 103/mcL Invalid Interpretation Code 0.9 - 4.3 10^3/mcL AH Workflow SS Lymphocytes/100 WBC (Bld) 13.0 % Invalid Interpretation Code 20.0 - 40.0 % AH Workflow SS MCH (RBC) [Entitic mass] 27.9 pg Invalid Interpretation Code 27.0 - 33.0 pg AH Workflow SS MCHC 33.4 G/dL Invalid Interpretation Code 32.0 - 36.0 G/dL AH Workflow SS MCV (RBC) [Entitic vol] 83.5 fL Invalid Interpretation Code 80.0 - 99.0 fL AH Workflow SS Monocyte distribution width Auto (Bld) [Entitic vol] Not Performed 3 *NA* (09/26/21 5:26 AM) Invalid Interpretation Code 0.00 - 20.00 Hematology S Comment on above: Result Comment: MDW testing performed only on adult ER patients between the ages of 18-89 years. Monocytes (Bld) [#/Vol] 0.3 103/mcL Invalid Interpretation Code 0.1 - 1.4 10^3/mcL AH Workflow SS Monocytes/100 WBC (Bld) 5.1 % Invalid Interpretation Code 2.0 - 13.0 % AH Workflow SS Neutrophils (Bld) [#/Vol] 5.0 103/mcL Invalid Interpretation Code 2.3 - 8.1 10^3/mcL AH Workflow SS Neutrophils/100 WBC (Bld) 81.6 % Invalid Interpretation Code 50.0 - 75.0 % AH Workflow SS Platelet mean volume (Bld) [Entitic vol] 9.8 fL Invalid Interpretation Code 6.6 - 10.5 fL AH Workflow SS Platelets (Bld) [#/Vol] 141 103/mcL Invalid Interpretation Code 150 - 450 10^3/mcL AH Workflow SS RBC (Bld) [#/Vol] 3.03 106/mcL Invalid Interpretation Code 4.10 - 5.30 10^6/mcL AH Workflow SS WBC 6.1 103/mcL Invalid Interpretation Code 4.5 - 10.8 10^3/mcL AH Workflow SS LABORATORYOrdered By: Linda Fuentes on 09-25-2021 C. difficile toxin B tcdB gene TICO+probe Ql (Stl) Positive 1 *ABN* (09/25/21 9:31 AM) Invalid Interpretation Code Negative AH Auto Viro/Sero SS Comment on above: Result Comment: Note s [id number] Clostridium difficile PCR Int tcdB gene DNA detected. C. difficile toxigenic confirmatory assay ordered. Results to follow.A positive C. difficile assay detection result does not necessarily indicate the presence of viable organisms. It does however indicate the presence of the tcdB gene and allows for the presumptive detection of the Clostridium difficile toxigenic organism.This assay can not be used for species identification as it does not contain primers and probes specific to Clostridium difficile.As with all PCR based in vitro diagnostic tests, extremely low levels of target below the limit of detection of the assay may be detected, but results may not be reproducible.Infection control will be notified. Invalid Interpretation Code Auto Viro/Sero SS LABORATORYOrdered By: Dasha Mccracken on 09-25-2021 Hemoglobin.gastroin testinal 8th specimen Ql (Stl) Positive *ABN* (09/25/21 9:31 AM) Invalid Interpretation Code Negative Manual Urine SS LABORATORYOrdered By: SYSTEM SYSTEM on 09-25-2021 Albumin BCP dye [Mass/Vol] 2.5 G/dL Invalid Interpretation Code 3.2 - 4.8 G/dL ADM SS Albumin/Globulin [Mass ratio] 1.0 {ratio} Invalid Interpretation Code 0.9 - 1.6 ratio AH ADM SS ALP [Catalytic activity/Vol] 105 U/L Invalid Interpretation Code 38 - 126 U/L ADM SS ALT No additional P-5'-P [Catalytic activity/Vol] U/L 1 Invalid Interpretation Code 10 - 49 U/L ADM SS AST [Catalytic activity/Vol] 13 U/L Invalid Interpretation Code 8 - 34 U/L ADM SS Basophils (Bld) [#/Vol] 0.0 103/mcL Invalid Interpretation Code 0.0 - 0.3 10^3/mcL Workflow SS Basophils/100 WBC (Bld) 0.1 % Invalid Interpretation Code 0.0 - 2.5 % Workflow SS Bilirubin [Mass/Vol] 0.20 mg/dL Invalid Interpretation Code 0.20 - 1.20 mg/dL ADM SS Eosinophils (Bld) [#/Vol] 0.0 103/mcL Invalid Interpretation Code 0.0 - 0.7 10^3/mcL Workflow SS Eosinophils/100 WBC (Bld) 0.1 % Invalid Interpretation Code 0.0 - 6.0 % Workflow SS Erythrocyte distribution width (RBC) [Ratio] 15.0 % Invalid Interpretation Code 11.5 - 15.5 % AH Workflow SS Globulin 2.6 G/dL Invalid Interpretation Code 1.5 - 3.8 G/dL AH ADM SS Hematocrit (Bld) [Volume fraction] 26.3 % Invalid Interpretation Code 34.0 - 46.0 % AH Workflow SS Hemoglobin (Bld) [Mass/Vol] 8.9 G/dL Invalid Interpretation Code 12.0 - 16.0 G/dL AH Workflow SS Lymphocytes (Bld) [#/Vol] 0.7 103/mcL Invalid Interpretation Code 0.9 - 4.3 10^3/mcL Workflow SS Lymphocytes/100 WBC (Bld) 9.6 % Invalid Interpretation Code 20.0 - 40.0 % AH Workflow SS MCH (RBC) [Entitic mass] 28.4 pg Invalid Interpretation Code 27.0 - 33.0 pg AH Workflow SS MCHC 33.9 G/dL Invalid Interpretation Code 32.0 - 36.0 G/dL AH Workflow SS MCV (RBC) [Entitic vol] 84.0 fL Invalid Interpretation Code 80.0 - 99.0 fL Workflow SS Monocyte distribution width Auto (Bld) [Entitic vol] Not Performed 4 *NA* (09/25/21 5:22 AM) Invalid Interpretation Code 0.00 - 20.00 Hematology S Comment on above: Result Comment: MDW testing performed only on adult ER patients between the ages of 18-89 years. Monocytes (Bld) [#/Vol] 0.3 103/mcL Invalid Interpretation Code 0.1 - 1.4 10^3/mcL Workflow SS Monocytes/100 WBC (Bld) 3.7 % Invalid Interpretation Code 2.0 - 13.0 % AH Workflow SS Neutrophils (Bld) [#/Vol] 6.7 103/mcL Invalid Interpretation Code 2.3 - 8.1 10^3/mcL Workflow SS Neutrophils/100 WBC (Bld) 86.5 % Invalid Interpretation Code 50.0 - 75.0 % Workflow SS Platelet mean volume (Bld) [Entitic vol] 9.3 fL Invalid Interpretation Code 6.6 - 10.5 fL Workflow SS Platelets (Bld) [#/Vol] 146 103/mcL Invalid Interpretation Code 150 - 450 10^3/mcL Workflow SS Protein [Mass/Vol] 5.1 G/dL Invalid Interpretation Code 5.7 - 8.2 G/dL AH ADM SS RBC (Bld) [#/Vol] 3.13 106/mcL Invalid Interpretation Code 4.10 - 5.30 10^6/mcL AH Workflow SS WBC 7.8 103/mcL Invalid Interpretation Code 4.5 - 10.8 10^3/mcL AH Workflow SS LABORATORYOrdered By: Noel Gutierrez on 09-25-2021 Lactate [Moles/Vol] 1.1 mmol/L Invalid Interpretation Code 0.2 - 2.0 mmol/L Auto Chem SS No Panel Informationon 09-25 Shiga Toxins 1 and 2 Absence of Shiga toxin 1 Absence of Shiga toxin 2 [facility] Work Phone: Comment on above: Testing performed by immunochromatography. Clostridium difficile Toxin Confirmation Toxin A/B Confirmation Assay: Negative C. difficile toxin is either absent or below the detection limit of the test. [facility] Work Phone: Comment on above: The C.DIFF QUIK CHEC K COMPLETE TEST is used to detect C. difficile antigen and toxin(s) in fecal specimens. The test confirms the presence of toxin in feces and this information should be taken under consideration by the physician in light of the clinical history and physical examination of the patient. Fecal specimens are extremely complex. Optimal results with the C. DIFF CHECK COMPLETE test are obtained with specimens that are less than 24 hours old. No data exists on the effects of colonic washes, barium enemas, laxitive, or bowel preperations on the performance of the C. DIFF QUICK CHECK COMPLETE test. All of these procedures can result in extensive dilution or the presence of additives that may affect test performance. Culture Stool Normal stool anna p resent. Salmonella: Negative Shigella: Negative Campylobacter: Negative [facility] Work Phone: Comment on above: Requests for alterna tive pathogens including Yersinia, E. coli 0157, C. difficile toxin, Rotavirus, Giardia and parasites require specific requests. LABORATORYOrdered By: Linda Becerril on 09-24-2021 Lactate [Moles/Vol] 0.8 mmol/L Invalid Interpretation Code 0.2 - 2.0 mmol/L Auto Chem SS LABORATORYOrdered By: SYSTEM SYSTEM on 09-24-2021 Albumin BCP dye [Mass/Vol] 2.9 G/dL Invalid Interpretation Code 3.2 - 4.8 G/dL ADM SS Albumin/Globulin [Mass ratio] 1.0 {ratio} Invalid Interpretation Code 0.9 - 1.6 ratio ADM SS ALP [Catalytic activity/Vol] 110 U/L Invalid Interpretation Code 38 - 126 U/L ADM SS ALT No additional P-5'-P [Catalytic activity/Vol] 13 U/L Invalid Interpretation Code 10 - 49 U/L ADM SS AST [Catalytic activity/Vol] 19 U/L Invalid Interpretation Code 8 - 34 U/L ADM SS Bilirubin [Mass/Vol] 0.20 mg/dL Invalid Interpretation Code 0.20 - 1.20 mg/dL AH ADM SS Globulin 2.8 G/dL Invalid Interpretation Code 1.5 - 3.8 G/dL ADM SS Protein [Mass/Vol] 5.7 G/dL Invalid Interpretation Code 5.7 - 8.2 G/dL ADM SS LABORATORYOrdered By: iGlue SYSTEM on 09-23-2021 Albumin BCP dye [Mass/Vol] 3.2 G/dL Invalid Interpretation Code 3.2 - 4.8 G/dL ADM SS ALP [Catalytic activity/Vol] 85 U/L Invalid Interpretation Code 38 - 126 U/L ADM SS ALT No additional P-5'-P [Catalytic activity/Vol] U/L 1 Invalid Interpretation Code 10 - 49 U/L ADM SS AST [Catalytic activity/Vol] 20 U/L Invalid Interpretation Code 8 - 34 U/L ADM SS CRP [Mass/Vol] 20.8 mg/dL Invalid Interpretation Code 0.0 - 1.0 mg/dL ADM SS Ferritin [Mass/Vol] 176.6 ng/mL Invalid Interpretation Code 8.0 - 252.0 ng/mL ADM SS Globulin 3.1 G/dL Invalid Interpretation Code 1.5 - 3.8 G/dL ADM SS Lipase [Catalytic activity/Vol] 26 U/L Invalid Interpretation Code 12 - 53 U/L AH ADM SS Protein [Mass/Vol] 6.3 G/dL Invalid Interpretation Code 5.7 - 8.2 G/dL AH ADM SS LABORATORYOrdered By: Sonja Vila on 09-23-2021 Albumin BCP dye [Mass/Vol] 3.0 G/dL Invalid Interpretation Code 3.2 - 4.8 G/dL ADM SS ALP [Catalytic activity/Vol] 88 U/L Invalid Interpretation Code 38 - 126 U/L ADM SS ALT No additional P-5'-P [Catalytic activity/Vol] 9 U/L Invalid Interpretation Code 10 - 49 U/L AH ADM SS AST [Catalytic activity/Vol] 26 U/L Invalid Interpretation Code 8 - 34 U/L ADM SS Bili Indirect 0.2 mg/dL Invalid Interpretation Code 0.1 - 10.0 mg/dL Chemistry S Bilirubin.conjugate d [Mass/Vol] 0.1 mg/dL Invalid Interpretation Code 0.0 - 0.4 mg/dL ADM SS Cholesterol [Mass/Vol] 92 mg/dL Invalid Interpretation Code 50 - 199 mg/dL ADM SS Cholesterol in HDL [Mass/Vol] 28 mg/dL Invalid Interpretation Code 40 - 59 mg/dL ADM SS Cholesterol in LDL [Mass/Vol] 51 mg/dL Invalid Interpretation Code 0 - 129 mg/dL ADM SS Globulin 2.9 G/dL Invalid Interpretation Code 1.5 - 3.8 G/dL ADM SS Protein [Mass/Vol] 5.9 G/dL Invalid Interpretation Code 5.7 - 8.2 G/dL ADM SS Triglyceride [Mass/Vol] 63 mg/dL Invalid Interpretation Code 3 - 149 mg/dL ADM SS LABORATORYOrdered By: Linda Becerril on 09-23-2021 Calcium.ionized (Bld) [Mass/Vol] 1.14 mmol/L Invalid Interpretation Code 1.12 - 1.32 mmol/L Auto Chem SS Lactate [Moles/Vol] 1.3 mmol/L Invalid Interpretation Code 0.2 - 2.0 mmol/L Auto Chem SS Natriuretic peptide.B prohormone N-Terminal [Mass/Vol] 186 pg/mL Invalid Interpretation Code 0 - 900 pg/mL Auto Chem SS LABORATORYOrdered By: Lottie Karimi on 09-23-2021 Fibrin D-dimer DDU (PPP) [Mass/Vol] 400 ng/mL D-DU Invalid Interpretation Code 0 - 230 ng/mL D-DU Auto Coag SS Comment on above: Result Comment: Resu lts reported in D-DU ng/ml. Positive for D-dimer. A positive D-dimer may occur in the following: DVT, PE, DIC, Trauma, Cancer, Sepsis, , Rheumatoid arthritis, Myocardial infarction and Cirrhosis. Note: Not affected by Rheumatoid Factor <=1400 IU/mL LABORATORYOrdered By: Beverly Anne on 09-23-2021 Date of Onset [id number] Invalid Interpretation Code AH Auto Viro/Sero SS Employed in Healthcare No (09/23/21 3:07 PM) Invalid Interpretation Code AH Auto Viro/Sero SS First Test Yes (09/23/21 3:07 PM) Invalid Interpretation Code AH Auto Viro/Sero SS FLU A PCR Negative 8 (09/23/21 3:07 PM) Invalid Interpretation Code Negative AH Auto Viro/Sero SS Comment on above: Result Comment: Note s 1990 FLU B PCR Negative 9 (09/23/21 3:07 PM) Invalid Interpretation Code Negative AH Auto Viro/Sero SS Comment on above: Result Comment: Note s 1990 Hospitalized Yes (09/23/21 3:07 PM) Invalid Interpretation Code AH Auto Viro/Sero SS ICU No (09/23/21 3:07 PM) Invalid Interpretation Code AH Auto Viro/Sero SS Not (09/23/21 3:07 PM) Invalid Interpretation Code AH Auto Viro/Sero SS Resides in Congregate Care Setting No (09/23/21 3:07 PM) Invalid Interpretation Code AH Auto Viro/Sero SS RSV PCR Negative 10 (09/23/21 3:07 PM) Invalid Interpretation Code Negative AH Auto Viro/Sero SS Comment on above: Result Comment: Note s 1990 SARS-CoV-2 (COVID-19) RNA TICO+probe Ql (Unsp spec) Positive 7 *ABN* (09/23/21 3:07 PM) Invalid Interpretation Code Negative AH Auto Viro/Sero SS Comment on above: Result Comment: Note s 1990 This organism causes a reportable disease. Infection Control has been notified. Results have been reported to the [facility]. Symptomatic as Defined by CDC No (09/23/21 3:07 PM) Invalid Interpretation Code AH Auto Viro/Sero SS LABORATORYOrdered By: Jose Alfredo Guerrero on 09-23-2021 Appearance (U) Clear (09/23/21 12:33 PM) Invalid Interpretation Code Clear AH Auto Urine SS Bacteria LM.HPF (Urine sed) [#/Area] Trace /HPF Invalid Interpretation Code Negative/H PF AH Auto Urine SS Bilirubin Ql (U) Negative (09/23/21 12:33 PM) Invalid Interpretation Code Neg-Trace AH Auto Urine SS Color (U) Yellow (09/23/21 12:33 PM) Invalid Interpretation Code AH Auto Urine SS Crystals.amorphous LM.HPF (Urine sed) [#/Area] Trace /HPF Invalid Interpretation Code AH Auto Urine SS Glucose Test strip (U) [Mass/Vol] Negative Invalid Interpretation Code Negativemg /dL AH Auto Urine SS Hemoglobin Auto test strip (U) [Mass/Vol] Small *ABN* (09/23/21 12:33 PM) Invalid Interpretation Code Neg-Trace AH Auto Urine SS Ketones Ql (U) 80 mg/dL Invalid Interpretation Code Neg-Tracem g/dL AH Auto Urine SS UA Leuk Est Negative (09/23/21 12:33 PM) Invalid Interpretation Code Negative AH Auto Urine SS UA Nitrite Negative (09/23/21 12:33 PM) Invalid Interpretation Code Negative AH Auto Urine SS UA pH 6.0 (09/23/21 12:33 PM) Invalid Interpretation Code 5.0 - 8.0 AH Auto Urine SS UA Protein 30 mg/dL Invalid Interpretation Code Negativemg /dL AH Auto Urine SS UA RBC 3-5 /HPF Invalid Interpretation Code 0-2/HPF AH Auto Urine SS UA Spec Grav >=1.030 *ABN* (09/23/21 12:33 PM) Invalid Interpretation Code 1.006-1.02 9 AH Auto Urine SS UA Specimen Type Clean Catch (09/23/21 12:33 PM) Invalid Interpretation Code AH Auto Urine SS UA Squam Epithelial 0-2 /HPF Invalid Interpretation Code 0-20/HPF AH Auto Urine SS UA Urobilinogen 1.0 E.U./dL Invalid Interpretation Code 0.2-1.0E.U ./dL AH Auto Urine SS WBC LM.HPF (Urine sed) [#/Area] 0-2 /HPF Invalid Interpretation Code 0-5/HPF AH Auto Urine SS Laboratory - Chemistry and C hemistry - challengeOrdered By: SYSTEM SYSTEM on 09-23-2021 Albumin/Globulin [Mass ratio] 1.0 {ratio} Invalid Interpretation Code 0.9 - 1.6 ratio AH ADM SS Bilirubin [Mass/Vol] 0.30 mg/dL Invalid Interpretation Code 0.20 - 1.20 mg/dL AH ADM SS No Panel Informationon 09-23 Microscopic examination of blood, culture Blood Culture: No Growth at 5 days. [facility] Work Phone: LABORATORYOrdered By: Lindsey Sanchez on 08-19-2021 Appearance (U) Clear (08/19/21 10:23 PM) Invalid Interpretation Code Clear AH Auto Urine SS Bacteria LM.HPF (Urine sed) [#/Area] Negative (08/19/21 10:23 PM) Invalid Interpretation Code Negative AH Auto Urine SS Bilirubin Ql (U) Negative (08/19/21 10:23 PM) Invalid Interpretation Code Neg-Trace AH Auto Urine SS Color (U) Yellow (08/19/21 10:23 PM) Invalid Interpretation Code AH Auto Urine SS Glucose Test strip (U) [Mass/Vol] Negative Invalid Interpretation Code Negativemg /dL AH Auto Urine SS Hemoglobin Auto test strip (U) [Mass/Vol] Small *ABN* (08/19/21 10:23 PM) Invalid Interpretation Code Neg-Trace AH Auto Urine SS Ketones Ql (U) Trace mg/dL Invalid Interpretation Code Neg-Tracem g/dL AH Auto Urine SS UA Leuk Est Negative (08/19/21 10:23 PM) Invalid Interpretation Code Negative AH Auto Urine SS UA Mucous 3+ /HPF Invalid Interpretation Code AH Auto Urine SS UA Nitrite Negative (08/19/21 10:23 PM) Invalid Interpretation Code Negative AH Auto Urine SS UA pH 8.0 (08/19/21 10:23 PM) Invalid Interpretation Code 5.0 - 8.0 AH Auto Urine SS UA Protein Trace mg/dL Invalid Interpretation Code Negativemg /dL AH Auto Urine SS UA RBC 0-2 /HPF Invalid Interpretation Code 0-2/HPF AH Auto Urine SS UA Spec Grav 1.020 (08/19/21 10:23 PM) Invalid Interpretation Code 1.006-1.02 9 AH Auto Urine SS UA Specimen Type Clean Catch (08/19/21 10:23 PM) Invalid Interpretation Code AH Auto Urine SS UA Squam Epithelial Rare /HPF Invalid Interpretation Code 0-20/HPF AH Auto Urine SS UA Urobilinogen 1.0 E.U./dL Invalid Interpretation Code 0.2-1.0E.U ./dL AH Auto Urine SS WBC LM.HPF (Urine sed) [#/Area] Rare /HPF Invalid Interpretation Code 0-5/HPF Auto Urine SS LABORATORYOrdered By: SYSTEM SYSTEM on 08-19-2021 Albumin BCP dye [Mass/Vol] 3.8 G/dL Invalid Interpretation Code 3.2 - 4.8 G/dL ADM SS Albumin/Globulin [Mass ratio] 1.0 {ratio} Invalid Interpretation Code 0.9 - 1.6 ratio ADM SS ALP [Catalytic activity/Vol] 212 U/L Invalid Interpretation Code 38 - 126 U/L ADM SS ALT No additional P-5'-P [Catalytic activity/Vol] 14 U/L Invalid Interpretation Code 10 - 49 U/L ADM SS AST [Catalytic activity/Vol] 15 U/L Invalid Interpretation Code 8 - 34 U/L ADM SS Basophils (Bld) [#/Vol] 0.1 103/mcL Invalid Interpretation Code 0.0 - 0.3 10^3/mcL Workflow SS Basophils/100 WBC (Bld) 1.0 % Invalid Interpretation Code 0.0 - 2.5 % Workflow SS Bilirubin [Mass/Vol] 0.20 mg/dL Invalid Interpretation Code 0.20 - 1.20 mg/dL ADM SS Calcium [Mass/Vol] 10.1 mg/dL Invalid Interpretation Code 8.7 - 10.4 mg/dL ADM SS Chloride [Moles/Vol] 104 mmol/L Invalid Interpretation Code 98 - 110 mEq/L ADM SS CO2 [Moles/Vol] 28 mmol/L Invalid Interpretation Code 22 - 32 mEq/L ADM SS Creatinine [Mass/Vol] 0.50 mg/dL Invalid Interpretation Code 0.50 - 1.20 mg/dL ADM SS Electrolyte Balance 6.0 mEq/L Invalid Interpretation Code 4.0 - 15.0 mEq/L ADM SS Eosinophil, Absolute 0.1 103/mcL Invalid Interpretation Code 0.0 - 0.7 10^3/mcL Workflow SS Eosinophils/100 WBC (Bld) 0.9 % Invalid Interpretation Code 0.0 - 6.0 % Workflow SS Erythrocyte distribution width (RBC) [Ratio] 14.6 % Invalid Interpretation Code 11.5 - 15.5 % Workflow SS GFR/1.73 sq M.predicted among blacks MDRD (S/P/Bld) [Vol rate/Area] ml/min/1.73sqm Invalid Interpretation Code ADM SS GFR/1.73 sq M.predicted among non-blacks MDRD (S/P/Bld) [Vol rate/Area] ml/min/1.73sqm Invalid Interpretation Code AH ADM SS Globulin 3.7 G/dL Invalid Interpretation Code 1.5 - 3.8 G/dL AH ADM SS Glucose [Mass/Vol] 106 mg/dL Invalid Interpretation Code 70 - 110 mg/dL AH ADM SS Hematocrit (Bld) [Volume fraction] 35.2 % Invalid Interpretation Code 34.0 - 46.0 % AH Workflow SS Hgb 11.6 G/dL Invalid Interpretation Code 12.0 - 16.0 G/dL AH Workflow SS Lipase [Catalytic activity/Vol] 33 U/L Invalid Interpretation Code 12 - 53 U/L AH ADM SS Lymphocyte, Absolute 1.6 103/mcL Invalid Interpretation Code 0.9 - 4.3 10^3/mcL AH Workflow SS Lymphocytes/100 WBC (Bld) 12.6 % Invalid Interpretation Code 20.0 - 40.0 % AH Workflow SS MCH (RBC) [Entitic mass] 28.1 pg Invalid Interpretation Code 27.0 - 33.0 pg AH Workflow SS MCHC 32.9 G/dL Invalid Interpretation Code 32.0 - 36.0 G/dL AH Workflow SS MCV (RBC) [Entitic vol] 85.3 fL Invalid Interpretation Code 80.0 - 99.0 fL AH Workflow SS Monocyte distribution width Auto (Bld) [Entitic vol] 17.67 Invalid Interpretation Code 0.00 - 20.00 AH Workflow SS Comment on above: Result Comment: For ED adult patients suspected of sepsis, MDW<=20.0 does not rule out sepsis or risk of sepsis Monocyte, Absolute 1.1 103/mcL Invalid Interpretation Code 0.1 - 1.4 10^3/mcL AH Workflow SS Monocytes/100 WBC (Bld) 8.5 % Invalid Interpretation Code 2.0 - 13.0 % AH Workflow SS Neutrophil, Absolute 9.6 103/mcL Invalid Interpretation Code 2.3 - 8.1 10^3/mcL AH Workflow SS Neutrophils/100 WBC (Bld) 77.0 % Invalid Interpretation Code 50.0 - 75.0 % AH Workflow SS Platelet 341 103/mcL Invalid Interpretation Code 150 - 450 10^3/mcL AH Workflow SS Platelet mean volume (Bld) [Entitic vol] 8.9 fL Invalid Interpretation Code 6.6 - 10.5 fL AH Workflow SS Potassium [Moles/Vol] 3.6 mmol/L Invalid Interpretation Code 3.5 - 5.0 mEq/L AH ADM SS Protein [Mass/Vol] 7.5 G/dL Invalid Interpretation Code 5.7 - 8.2 G/dL AH ADM SS RBC 4.12 106/mcL Invalid Interpretation Code 4.10 - 5.30 10^6/mcL AH Workflow SS Sodium [Moles/Vol] 138 mmol/L Invalid Interpretation Code 136 - 145 mEq/L AH ADM SS Urea nitrogen [Mass/Vol] 15.0 mg/dL Invalid Interpretation Code 8.0 - 22.0 mg/dL AH ADM SS Urea nitrogen/Creatinine [Mass ratio] 30.0 ratio Invalid Interpretation Code 10.0 - 22.0 ratio AH ADM SS WBC 12.5 103/mcL Invalid Interpretation Code 4.5 - 10.8 10^3/mcL Workflow SS ORon 12-20-2020 OPERATIVE REPORT Normal [facility] OR DATE OF SERVICE: 08/2020 PREOPERATIVE DIAGNOSIS: High-grade vulvar dysplasia. POSTOPERATIVE DIAGNOSIS: High-grade vulvar dysplasia. OPERATION: Partial superficial vulvectomy. SURGEON: Tj Tai MD ANESTHESIA: General. DESCRIPTION OF OPERATION: The patient was identified and brought to the operating room. After the administration of general anesthesia, placed in high lithotomy position, where she underwent a perineal and vaginal prep and drape. A timeout was performed. The area of dysplasia on the lower right vulva at the inferior aspect of the primary incision was noted. It was marked out using a surgical marker, infiltrated with 5 mL of 1% lidocaine with epinephrine, and using a No. 15 blade, the incision was made in elliptical fashion around the lesion. It was lifted off the subcutaneous tissue using sharp dissection. The defect was closed in 2 layers with interrupted subcutaneous buried 4-0 Monocryls followed by running 4-0 Monocryl [facility] PATIENT NAME: ARL[facility]ABETH [address] [facility] REC #: [id number] [place] [address] ADMIT DATE: DISCHARGE DATE: OPERATIVE REPORT ATTENDING PHY: Tj Tai MD subcuticular. Blood loss was minimal. She was taken to the recovery room in stable condition. Tj Tai MD /[id number] SSI File#: [id number] CC: Tj Tai MD END OF DOCUMENT / CHANGE LOG FOLLOWS Last Edited By Elec. Signed By Tj Tai MD #[email or web address] Tj Tai MD #[email or web address] on 12/27/2020 06:22 ET on 12/27/2020 06:22 ET Revision Number - 2 Verified/Reviewed by 12/27/20 0622 [email or web address] [facility] PATIENT NAME: CLARAARLENE Hamzah [address] [facility] MEDICAL REC #: [id number] [place] [address] ADMIT DATE: DISCHARGE DATE: OPERATIVE REPORT ATTENDING PHY: Tj Tai MD [facility] SURG 12-20-2020 SURG -- Patient: ARLENE ELIZABETH -- SPECIMEN: [id number] Collection Date: 12/20/20 Received: 12/20/20 Status: ADAMA Cruz DrElia: Tj Tai MD Ph# Othr. Dr.: Luis Felipe Monsalve Material for Examination: A RIGHT LOWER LABIA PRE-OP DIAGNOSIS: SEVERE VULVAR DYSPLASIA POST-OP DIAGNOSIS: PRIETO 3 SURGICAL PROCEDURE: RIGHT PARTIAL SUPERFICIAL VULVECTOMY DIAGNOSIS A. 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 - Peripheral and deep surgical margins are free, GROSS DESCRIPTION The specimen is received in formalin and labeled with the patient's name, ID and designated right lower labia, is an unoriented, birmingham to darker birmingham, mottled, oval-shaped portion of skin, 1.5 x 1.3 x 0.3 cm. The specimen is not oriented and is inked blue. The specimen is serially sectioned and has a birmingham-white cut surface. The ends are submitted in cassette A1 and the mid portion is submitted in cassette A2. MICROSCOPIC DESCRIPTION Six Arsen and two immunohistochemical stained slides with adequate controls examined. Immunostaining for p16 performed on sections A1 and A2 show focal strong positive staining. COPIES TO: Tj Tai MD, Benjamin J Signed Verified/Reviewed by KARUNA CARNEY M.D. 12/21/20 This dictation was created using voice recognition software. Phonetic and/or minor grammatical errors may exist. -- [facility] NAME: ARLENE ELIZABETH Hamzah Pathology and Laboratory Medicine UNIT#: [id number] LOC: [facility] Eye Technician: Karuna Carney M.D. ROOM/BED: Simpler : 67 AGE/SEX: 55/F ORD.Tj Saldana MD END OF REPORT [facility] Discharge Instructionon 11-16 Discharge Instruction [facility] Medical Records Department [address] [place] [id number] Instructions for Home/Discharge Instructions 12/10/20 1456 MR#: [id number] Acct: [id number] Name: CLARAARLENE Rep #: [id number] : 1965 55 From: Raul Chapman DO PCP: Dr. Luis Felipe Monsalve MD Status:ADM IN Discharge Instructions Diet Discharge Diet: No restrictions Activity Discharge Activity: Return to Normal Activity Weight Bearing Status: Full weight bearing Follow Up Care Test Results: Test results from this visit will be discussed in further detail at your follow-up appointment, if applicable. Discharge Plan Admission Admit Date/Time: 12/08/20 21:01 Primary Reason for Your Visit: migrane Attending Provider: Raul Chapman Primary Care Provider: Luis Felipe Monsalve Discharge Orders/Prescriptions Prescriptions: New gabapentin 100 mg Capsule 100 mg PO TIDCM Qty: 15 RF: 0 metoprolol tartrate 25 mg Tablet 50 mg PO BID Qty: 14 RF: 0 divalproex [Depakote] 500 mg tablet,delayed release (DR/EC) 1,000 mg PO QHS Qty: 14 RF: 0 ondansetron HCl [Zofran] 4 mg tablet 4 mg PO Q6H PRN (Reason: nausea and vomiting) Qty: 10 RF: 0 dexamethasone 4 mg tablet 4 mg PO DAILY Qty: 5 RF: 0 Continued tizanidine 4 mg tablet 4 mg PO TID PRN (Reason: Muscle Pain) RF: 0 hydrocodone-acetaminophen 7.5-325 mg tablet 1 tab PO Q8H PRN PRN (Reason: Pain) RF: 0 hydroxyzine HCl 25 mg tablet 25 mg PO TID PRN PRN (Reason: .) RF: 0 escitalopram oxalate 20 mg tablet 20 mg PO DAILY RF: 0 Referrals / Follow Up: Luis Felipe Monsalve MD [Primary Care Provider] - Within 1 Week Care Physician,No Primary [NON-STAFF] - Disposition Disposition (needs filled in before D/C Order can be placed): Home, Self Care 12/10/20 1516 Raul Chapman DO CC: Dr. Luis Felipe Monsalve MD Signed Normal [facility] Brain without Contraston Brain without Contrast [facility] Imaging Services [address] [place] [address] Brain without Contrast MR#: [id number] Acct: [id number] Name: ARLENE ELIZABETH Rep #: [id number] : 1965 F 55 From: Les Reyes MD PCP: Dr. Luis Felipe Monsalve MD Status: ADM IN Study: Brain without Contrast Date of Exam: 12/09/20 Exam# [id number] Ordering Dr: Юлия Miranda MD ADDENDUM by Dr. Davin Pérez MD on 12/09/20 at 1943 ADDENDUM The described cortical/gyral signal abnormality is minimal in distribution and has no DWI corresponding signal change. 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 This is a benign/low risk finding which can be followed up in 6-12 months with MR with contrast. If neurologic symptoms are present, specifically seizures, neurology referral is advised. Electronically Signed: Davin Pérez MD at 19:43 EDT Tel , Service support , 12/09/201942 Date cc: Dr. Юлия Miranda MD; Dr. Luis Felipe Monsalve MD * Signed ADDENDUM by Dr. Davin Pérez MD on 12/09/20 at 1943 MRI/Brain without Contrast 12/09/201949 Date cc: Dr. Юлия Miranda MD; Dr. Luis Felipe Monsalve MD * Signed STUDY: MRI BRAIN WITHOUT CONTRAST REASON FOR EXAM: Female, 55 years old. migraine TECHNIQUE: Standardized multiplanar fat and water weighted pulse sequences were obtained. COMPARISON: None. FINDINGS: Normal size of the ventricles and extra-axial spaces for the patient''s age. Normal white matter tracts of the supratentorial brain. Subtle hyperintensity of multiple gyri of the superior parietal lobes which may represent encephalitis, best seen on inversion recovery weighted image 20.. There is no evidence for recent intracranial ischemia or other cause of cytotoxic edema on diffusion weighted imaging (DWI). Normal T2* images of the brain without demonstrated susceptibility artifact. There is no demonstrated hemosiderin stain. Normal bilateral basal ganglia. Normal thalami. There is no extra-axial fluid accumulation. Normal flow voids within the major intracranial circulation suggesting patency by spin echo criteria. Normal sella turcica, pituitary gland, infundibular stalk, optic chiasm and hypothalamus. Normal tectal plate and pineal gland. Normal midbrain, demetrius and medulla. Normal cerebellum. Normal basal cisterns. Normal bilateral temporal bones. Normal bilateral internal auditory canals. No demonstrated orbital abnormality, within the constraints of a routine brain study. Normal visualized paranasal sinuses. Normal calvarium and skull base. Normal visualized soft tissue structures. Normal visualized upper cervical spine. 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 Electronically Signed: Les Reyes MD at 14:44 EDT Tel , Service support , CC: Dr. Юлия Miranda MD; Dr. Luis Felipe Monsalve MD Customs Compliance Manager: Signed Normal [facility] CBC W/Diff, Automatedon 11-16 SMEAR COMMENT SCANNED Normal [facility] Comment on above: Performed By: #### L 100.0100, L501.4020, L500.4050 #### [facility] Laboratory [address] [place], [address] Comprehensive Metabolic Prof ilon 12-09-2020 Albumin [Mass/Vol] 3.5 g/dL Normal 3.2-5.0 [facility] Comment on above: Order Comment: Comme nts: SPECIMEN #3 Performed By: #### L 100.0100, L501.4020, L500.4050 #### [facility] Laboratory [address] [place], [address] Albumin/Globulin [Mass ratio] 1.0 {ratio} Normal 0.9-2.4 [facility] Comment on above: Order Comment: Comme nts: SPECIMEN #3 Performed By: #### L 100.0100, L501.4020, L500.4050 #### [facility] Laboratory [address] [place], [address] ALK P 109 U/L Normal 45-117 [facility] Comment on above: Order Comment: Comme nts: SPECIMEN #3 Performed By: #### L 100.0100, L501.4020, L500.4050 #### [facility] [address] [place], [address] ALT [Catalytic activity/Vol] 30 U/L Normal 13-56 [facility] Comment on above: Order Comment: Comme nts: SPECIMEN #3 Performed By: #### L 100.0100, L501.4020, L500.4050 #### [facility] [address] [place], [address] AST [Catalytic activity/Vol] 28 U/L Normal 15-37 [facility] Comment on above: Order Comment: Comme nts: SPECIMEN #3 Performed By: #### L 100.0100, L501.4020, L500.4050 #### [facility] [address] [place], [address] Bilirubin [Mass/Vol] 0.50 mg/dL Normal 0.20-1.00 [facility] Comment on above: Order Comment: Comme nts: SPECIMEN #3 Result Comment: For patients on eltrombopag therapy, use of Dimension [place] TBIL is not recommended. Performed By: #### L 100.0100, L501.4020, L500.4050 #### [facility] [address] [place], [address] BUN/CRE 15.5 RATIO Normal 10-20 [facility] Comment on above: Order Comment: Comme nts: SPECIMEN #3 Performed By: #### L 100.0100, L501.4020, L500.4050 #### [facility] [address] [place], [address] CA,Total 9.1 mg/dL Normal 8.5-10.1 [facility] Comment on above: Order Comment: Comme nts: SPECIMEN #3 Performed By: #### L 100.0100, L501.4020, L500.4050 #### [facility] [address] [place], [address] Chloride [Moles/Vol] 108 mmol/L High 98-107 [facility] Comment on above: Order Comment: Comme nts: SPECIMEN #3 Performed By: #### L 100.0100, L501.4020, L500.4050 #### [facility] [address] [place], [address] CO2 [Moles/Vol] 25.0 mmol/L Normal 21.0-32.0 [facility] Comment on above: Order Comment: Comme nts: SPECIMEN #3 Performed By: #### L 100.0100, L501.4020, L500.4050 #### [facility] [address] [place], [address] Creatinine [Mass/Vol] 0.78 mg/dL Normal 0.55-1.02 [facility] Comment on above: Order Comment: Comme nts: SPECIMEN #3 Result Comment: The validity of the calculated GFR GFRAA in patients over 70 years has not been determined. Clinical correlation is essential. Performed By: #### L 100.0100, L501.4020, L500.4050 #### [facility] [address] [place], [address] ECRCL 71.20 ml/min Normal [facility] Comment on above: Order Comment: Comme nts: SPECIMEN #3 Performed By: #### L 100.0100, L501.4020, L500.4050 #### [facility] [address] [place], [address] EST GFR - AA 100 mL/min Normal >60 [facility] Comment on above: Order Comment: Comme nts: SPECIMEN #3 Result Comment: Afri can Haitian GFR Calc Performed By: #### L 100.0100, L501.4020, L500.4050 #### [facility] [address] [place], [address] GAP 6 Normal 5-15 [facility] Comment on above: Order Comment: Comme nts: SPECIMEN #3 Performed By: #### L 100.0100, L501.4020, L500.4050 #### [facility] [address] [place], [address] GFR/1.73 sq M.predicted among non-blacks MDRD (S/P/Bld) [Vol rate/Area] 82 mL/min/{1.73_m2} Normal >60 [facility] Comment on above: Order Comment: Comme nts: SPECIMEN #3 Result Comment: Non- GFR Calc Performed By: #### L 100.0100, L501.4020, L500.4050 #### [facility] [address] [place], [address] Globulin (S) [Mass/Vol] 3.5 g/dL Normal 2.2-4.2 [facility] Comment on above: Order Comment: Comme nts: SPECIMEN #3 Performed By: #### L 100.0100, L501.4020, L500.4050 #### [facility] [address] [place], [address] Glucose [Mass/Vol] 158 mg/dL High 74-106 [facility] Comment on above: Order Comment: Comme nts: SPECIMEN #3 Result Comment: Fast ing Glucose result greater than or equal to 126 mg/dL suggests DIABETES MELLITUS per A.D.A. criteria. Please note revised GLUCOSE reference range effective 2017. Performed By: #### L 100.0100, L501.4020, L500.4050 #### [facility] [address] [place], [address] Potassium [Moles/Vol] 4.8 mmol/L Normal 3.5-5.1 [facility] Comment on above: Order Comment: Comme nts: SPECIMEN #3 Performed By: #### L 100.0100, L501.4020, L500.4050 #### [facility] [address] [place], [address] Sodium [Moles/Vol] 139 mmol/L Normal 136-145 [facility] Comment on above: Order Comment: Comme nts: SPECIMEN #3 Performed By: #### L 100.0100, L501.4020, L500.4050 #### [facility] [address] [place], [address] T PROT 7.0 g/dL Normal 6.4-8.2 [facility] Comment on above: Order Comment: Comme nts: SPECIMEN #3 Performed By: #### L 100.0100, L501.4020, L500.4050 #### [facility] [address] [place], [address] Urea nitrogen [Mass/Vol] 12 mg/dL Normal 7-18 [facility] Comment on above: Order Comment: Comme nts: SPECIMEN #3 Performed By: #### L 100.0100, L501.4020, L500.4050 #### [facility] [address] [place], [address] L501.4020on 12-09-2020 TROPONIN-I HS 20 pg/mL Normal 3.0-54.0 [facility] Comment on above: Order Comment: Comme nts: SPECIMEN #3 Result Comment: Plea se Note: New Test Units and Gender Specific Reference Ranges. For more information see Policy Stat Procedure [place] High Sensitivity Troponin (TNIH) and attachments. Performed By: #### L 100.0100, L501.4020, L500.4050 #### [facility] [address] [place], [address] TROPONIN-I HS 22 pg/mL Normal 3.0-54.0 [facility] Comment on above: Order Comment: Comme nts: SPECIMEN #2 Result Comment: Plea se Note: New Test Units and Gender Specific Reference Ranges. For more information see Policy Stat Procedure [place] High Sensitivity Troponin (TNIH) and attachments. Performed By: #### L 501.4020 ####[facility] [address] [place], [address] TROPONIN-I HS 25 pg/mL Normal 3.0-54.0 [facility] Comment on above: Result Comment: Plea se Note: New Test Units and Gender Specific Reference Ranges. For more information see Policy Stat Procedure [place] High Sensitivity Troponin (TNIH) and attachments. Performed By: #### L 501.4020 ####[facility] [address] [place], [address] Spine Cervical (Routine)on 0 12-09-2020 Spine Cervical (Routine) [facility] Imaging Services [address] [place] [address] Spine Cervical (Routine) MR#: [id number] Acct: [id number] Name: ARLENE ELIZABETH Rep #: [id number] : 1965 F 55 From: Les Reyes MD PCP: Care Physician,No Primary Status: ADM IN Study: Spine Cervical (Routine) Date of Exam: Exam# [id number] Ordering Dr: Юлия Miranda MD STUDY: MRI CERVICAL SPINE WITHOUT CONTRAST REASON FOR EXAM: Female, 55 years old. Radiculopathy TECHNIQUE: Standardized fat and water weighted pulse sequences were obtained in the sagittal and axial planes. COMPARISON: None FINDINGS: Normal foramen magnum and brainstem-cervical cord junction. Normal craniovertebral junction. Normal anterior atlantoaxial articulation. Normal odontoid process. There is straightening of the normal cervical lordosis. Normal vertebral bodies and posterior osseous elements. C2-3: Normal endplates. Normal disc height, signal and morphology. Normal central canal and intervertebral neural foramina. C3-4: Normal endplates. Normal disc height, signal and morphology. Normal central canal and intervertebral neural foramina. C4-5: Normal endplates. Normal disc height, signal and morphology. Normal central canal and intervertebral neural foramina. C5-6: Mild broad disc osteophyte complex produces mild spinal stenosis. No neural foraminal stenosis. C6-7: Mild bilobed disc osteophyte complex produces mild spinal stenosis. No neural foraminal stenosis. C7-T1: Moderate size right paracentral and preforaminal disc protrusion produces moderate spinal stenosis with abutment of the right hemicord and mild right neural foraminal stenosis. Normal cervical cord. Normal visualized soft tissue structures. MRI/Spine Cervical (Routine) IMPRESSION: Multilevel degenerative changes, as described above. Electronically Signed: Les Reyes MD at 14:48 EDT Tel , Service support , CC: Dr. Юлия Miranda MD; No Primary Care Physician Customs Compliance Manager: Signed Normal [facility] 12 Lead EKGon 12-08-2020 12 Lead EKG [facility] Cardiovascular Services [address] [place] [address] 12 Lead EKG 12/08/20 1827 MR#: [id number] Acct: [id number] Name: ARLENE ELIZABETH Rep #: [id number] : 1965 55 From: Bro Pardo MD Attending Dr: Dr. Raul Chapman DO Status: D IS IN Ordering Dr: Tamara Mulligan DO Date: 12/08/20 Location: [facility] Sex: F C Admitted: 12/08/20 Test Reason : BODY ACHES/BP Blood Pressure : / mmHG Vent. Rate : 080 BPM Atrial Rate : 080 BPM P-R Int : 142 ms QRS Dur : 080 ms QT Int : 398 ms P-R-T Axes : 061 019 038 degrees QTc Int : 459 ms Normal sinus rhythm Consider Left ventricular hypertrophy Poor R wave progression Abnormal ECG Confirmed by AFLGUNI SUAREZ, BRO ([id number]), television news video editor MERCEDES PHELPS ([id number]) on 12/11/2020 12:58:06 PM Referred By: RU Confirmed By:BRO PARDO MD 12/11/20 1258 Date Bro Pardo MD CC: Dr. Luis Felipe Monsalve MD; Dr. Raul Chapman DO; Dr. Tamara Mulligan DO Signed [facility] Basic Metabolic Profile (BMP )on 12-08-2020 BUN/CRE 33.7 RATIO High 10-20 [facility] Comment on above: Performed By: #### L 500.2500, L100.0100, L501.4020 #### [facility] Laboratory [address] [place], [address] CA,Total 9.3 mg/dL Normal 8.5-10.1 [facility] Comment on above: Performed By: #### L 500.2500, L100.0100, L501.4020 #### [facility] Laboratory [address] [place], [address] Chloride [Moles/Vol] 105 mmol/L Normal 98-107 [facility] Comment on above: Performed By: #### L 500.2500, L100.0100, L501.4020 #### [facility] Laboratory [address] [place], [address] CO2 [Moles/Vol] 25.0 mmol/L Normal 21.0-32.0 [facility] Comment on above: Performed By: #### L 500.2500, L100.0100, L501.4020 #### [facility] Laboratory [address] [place], [address] Creatinine [Mass/Vol] 0.50 mg/dL Low 0.55-1.02 [facility] Comment on above: Result Comment: The validity of the calculated GFR GFRAA in patients over 70 years has not been determined. Clinical correlation is essential. Performed By: #### L 500.2500, L100.0100, L501.4020 #### [facility] Laboratory [address] [place], [address] ECRCL 111.07 ml/min Normal [facility] Comment on above: Performed By: #### L 500.2500, L100.0100, L501.4020 #### [facility] [address] [place], [address] EST GFR - AA 163 mL/min Normal >60 [facility] Comment on above: Result Comment: Afri can Haitian GFR Calc Performed By: #### L 500.2500, L100.0100, L501.4020 #### [facility] [address] [place], [address] GAP 6 Normal 5-15 [facility] Comment on above: Performed By: #### L 500.2500, L100.0100, L501.4020 #### [facility] [address] [place], [address] GFR/1.73 sq M.predicted among non-blacks MDRD (S/P/Bld) [Vol rate/Area] 135 mL/min/{1.73_m2} Normal >60 [facility] Comment on above: Result Comment: Non- GFR Calc Performed By: #### L 500.2500, L100.0100, L501.4020 #### [facility] [address] [place], [address] Glucose [Mass/Vol] 128 mg/dL High 74-106 [facility] Comment on above: Result Comment: Fast ing Glucose result greater than or equal to 126 mg/dL suggests DIABETES MELLITUS per A.D.A. criteria. Please note revised GLUCOSE reference range effective 2017. Performed By: #### L 500.2500, L100.0100, L501.4020 #### [facility] [address] [place], [address] Potassium [Moles/Vol] 3.7 mmol/L Normal 3.5-5.1 [facility] Comment on above: Performed By: #### L 500.2500, L100.0100, L501.4020 #### [facility] [address] [place], [address] Sodium [Moles/Vol] 136 mmol/L Normal 136-145 [facility] Comment on above: Performed By: #### L 500.2500, L100.0100, L501.4020 #### [facility] [address] [place], [address] Urea nitrogen [Mass/Vol] 17 mg/dL Normal 7-18 [facility] Comment on above: Performed By: #### L 500.2500, L100.0100, L501.4020 #### [facility] [address] [place], [address] CBC W/Diff, Automatedon 09-2 -2020 Absolute Lymph 1.18 X10 3/uL Normal 0.83-4.51 [facility] Comment on above: Performed By: #### L 500.2500, L100.0100, L501.4020 #### [facility] [address] [place], [address] Absolute Neut 17.8 X10 3/uL High 2.0-7.7 [facility] Comment on above: Performed By: #### L 500.2500, L100.0100, L501.4020 #### [facility] [address] [place], [address] Basophils/100 WBC (Bld) 0.3 % Normal 0-1 [facility] Comment on above: Performed By: #### L 500.2500, L100.0100, L501.4020 #### [facility] [address] [place], [address] Eosinophils/100 WBC (Bld) 0.1 % Normal 0-5 [facility] Comment on above: Performed By: #### L 500.2500, L100.0100, L501.4020 #### [facility] [address] [place], [address] Erythrocyte distribution width (RBC) [Ratio] 14.4 % Normal 11.6-14.6 [facility] Comment on above: Performed By: #### L 500.2500, L100.0100, L501.4020 #### [facility] [address] [place], [address] Hematocrit (Bld) [Volume fraction] 38.9 % Normal 37-47 [facility] Comment on above: Performed By: #### L 500.2500, L100.0100, L501.4020 #### [facility] [address] [place], [address] Hemoglobin (Bld) [Mass/Vol] 12.2 g/dL Normal 12.0-15.0 [facility] Comment on above: Performed By: #### L 500.2500, L100.0100, L501.4020 #### [facility] [address] [place], [address] IG% 0.500 Normal 0.0-0.9 [facility] Comment on above: Result Comment: IG% - Immature Granulocytes (promyelocytes, myelocytes and metamyelocytes) > 1% indicates that a LEFT SHIFT is Present. Performed By: #### L 500.2500, L100.0100, L501.4020 #### [facility] [address] [place], [address] Lymphocytes/100 WBC (Bld) 5.9 % Low 19-41 [facility] Comment on above: Performed By: #### L 500.2500, L100.0100, L501.4020 #### [facility] [address] [place], [address] MCH (RBC) [Entitic mass] 28.2 pg Normal 27.0-32.0 [facility] Comment on above: Performed By: #### L 500.2500, L100.0100, L501.4020 #### [facility] [address] [place], [address] MCHC (RBC) [Mass/Vol] 31.4 g/dL Low 32-36 [facility] Comment on above: Performed By: #### L 500.2500, L100.0100, L501.4020 #### [facility] [address] [place], [address] MCV (RBC) [Entitic vol] 90.0 fL Normal 81-99 [facility] Comment on above: Performed By: #### L 500.2500, L100.0100, L501.4020 #### [facility] [address] [place], [address] Monocytes/100 WBC (Bld) 4.9 % Normal 0-10 [facility] Comment on above: Performed By: #### L 500.2500, L100.0100, L501.4020 #### [facility] [address] [place], [address] Neutrophils/100 WBC (Bld) 88.3 % High 47-70 [facility] Comment on above: Performed By: #### L 500.2500, L100.0100, L501.4020 #### [facility] [address] [place], [address] Nucleated RBC (Bld) [#/Vol] 0 10*3/uL Normal 0-5 [facility] Comment on above: Performed By: #### L 500.2500, L100.0100, L501.4020 #### [facility] [address] [place], [address] Platelet mean volume (Bld) [Entitic vol] 11.0 fL Normal 6.2-12.0 [facility] Comment on above: Performed By: #### L 500.2500, L100.0100, L501.4020 #### [facility] [address] [place], [address] Platelets (Bld) [#/Vol] 249 10*3/uL Normal 150-450 [facility] Comment on above: Performed By: #### L 500.2500, L100.0100, L501.4020 #### [facility] [address] [place], [address] RBC (Bld) [#/Vol] 4.32 10*6/uL Normal 4.2-5.4 [facility] Comment on above: Performed By: #### L 500.2500, L100.0100, L501.4020 #### [facility] [address] [place], [address] RDW SD 47.8 fl High 35.1-43.9 [facility] Comment on above: Performed By: #### L 500.2500, L100.0100, L501.4020 #### [facility] [address] [place], [address] WBC (Bld) [#/Vol] 20.2 10*3/uL High 4.4-11.0 [facility] Comment on above: Performed By: #### L 500.2500, L100.0100, L501.4020 #### [facility] [address] [place], [address] CTA Head AND Neck W/ Contras ton 12-08-2020 CTA Head AND Neck W/ Contrast [facility] Imaging Services [address] [place] [address] CTA Head AND Neck W/ Contrast MR#: [id number] Acct: [id number] Name: CLARAARLENE J Rep #: [id number] : 1965 F 55 From: Maranda Galloway MD PCP: Care Physician,No Primary Status: [facility] Study: CTA Head AND Neck W/ Contrast Date of Exam: Exam# [id number] Ordering Dr: Tamara Mulligan DO STUDY: CTA HEAD AND NECK WITH CONTRAST REASON FOR EXAM: Female, 55 years old. Cephalgia, neck pain RADIATION DOSAGE (If Supplied By Facility): CTDIvol = ( 26.99 ) mGy, DLP = ( 1566.47 ) mGycm TECHNIQUE: CT angiography was performed with a multi-detector CT scanner. Data acquisition was obtained from the skull base through the vertex following intravenous administration of IV 100mL Isovue-370. MIP images were reconstructed from the axial data set. Post-processing of the angiographic images was performed, with multiplanar reformation and 3D reconstruction. Individualized dose optimization techniques were used for this CT. COMPARISON: No relevant priors. FINDINGS: Motion artifact degrades anatomic detail. Normal bilateral petrous carotid arteries. Normal right cavernous carotid artery with a normal supraclinoid bifurcation. Normal left cavernous carotid artery with a normal supraclinoid bifurcation. Normal right A1 segments of the anterior cerebral artery. Normal left A1 segments of the anterior cerebral artery. Normal intact anterior communicating artery (ACOM). Normal bilateral A2 segments of the anterior cerebral arteries. Normal right M1 and M2 segments of the middle cerebral arteries, with a normal M1 bifurcation. Normal left M1 and M2 segments of the middle cerebral arteries, with a normal M1 bifurcation. Normal right posterior communicating artery (PCOM). Normal left posterior communicating artery (PCOM). Normal bilateral vertebral arteries. Normal basilar artery with a normal basilar bifurcation. The visualized bilateral superior cerebellar (SCA) arteries are normal. Normal bilateral P1, P2 and visualized P3 segments of the posterior cerebral arteries. There is no demonstrated aneurysm of the [place] of [place]. There is no demonstrated abnormality of the visualized brain. AORTIC ARCH: Normal visualized aortic arch. Normal origins of the brachiocephalic, left common carotid, and left subclavian arteries. RIGHT CAROTID ARTERIES: Normal right common carotid artery (CCA). Normal right common carotid bulb. Normal origin of the right internal carotid (ICA) artery without a hemodynamically significant stenosis. Normal visualized cervical portion of the right internal carotid artery. Normal origin of the right external carotid artery (ECA). LEFT CAROTID ARTERIES: Normal left common carotid artery (CCA). Normal left common carotid bulb. Normal origin of the left internal carotid (ICA) artery without a hemodynamically significant stenosis. Normal visualized cervical portion of the left internal carotid artery. Normal origin of the left external carotid artery (ECA). VERTEBRAL ARTERIES: Normal bilateral vertebral arteries. CT/CTA Head AND Neck W/ Contrast IMPRESSION: Within normal limits CTA Head and neck with contrast. Electronically Signed: Maranda Galloway MD at 20:26 EDT Tel , Service support , CC: Dr. Tamara Mulligan DO; No Primary Care Physician Customs Compliance Manager: Signed Normal [facility] Emergency Department Summary on 12-08-2020 Emergency Department Summary [facility] Medical Records Department [address] [place] [address] Emergency Department Summary 12/08/20 MR#: [id number] Acct: [id number] Name: ARLENE ELIZABETH Rep #: [id number] : 1965 55 From: Tamara Mulligan DO PCP: Care Physician,No Primary Status:ADM IN Location: [address] History of Present Illness Chief Complaint: Headache Detail of Chief Complaint: Headache that started yesterday. Informant: patient Narrative Narrative: Patient presents to the emergency department complaint of a headache that started yesterday. Patient states is been continuous since yesterday somewhat diffuse and into her neck. Patient states that she lifted some pop about 2 weeks ago and strained her shoulder and she is been having pain in her neck and numbness in the fourth and fifth finger since that time. Patient was sent for outpatient x-rays of her shoulder and neck yesterday but no results as of yet. Patient has remote history of migraines. She does complain of photophobia. Patient presented via EMS today and was noted to be quite hypertensive and she was having dry heaves and vomiting. Patient denies falls or head injuries. She denies recent illness. Prior similar symptoms: No PFSH PFSH Allergy/AdvReac Type Severity Reaction Status Date / Time No Known Allergies Allergy Verified 12/08/20 16:21 Social History Smoking Status: Former smoker ROS ROS ED Constitutional Constitutional ED: Reports systems reviewed and no addt'l complaints, except as documented; Denies body ache(s), change in weight or chills Eyes Eyes: Denies acute decrease in peripheral vision, change in vision, double vision or loss of vision ENT ENT ED: Reports none; Denies ear pain, lip swelling, loss taste/smell, neck pain, otalgia or sore throat Cardiovascular Cardiovascular: Reports none; Denies abdominal pain, chest pain with activity, leg edema, lightheadedness, palpitations, rapid heart rate or syncope Respiratory/Chest Respiratory/Chest: Reports none; Denies change in mental status, dry cough, dyspnea, hemoptysis, shortness of breath at rest or shortness of breath with exertion Gastrointestinal Gastrointestinal: Reports none; Denies abdominal pain, change in stool character, diarrhea, hematemesis, hematochezia, melena, rectal bleeding or vomiting Genitourinary Genitourinary ED: Reports none; Denies abdominal discomfort, anuria, dysuria, genital pain or polyuria Musculoskeletal Musculoskeletal: Reports none and neck pain; Denies arthralgias, back pain, difficulty walking, extremity pain, muscle weakness or myalgias Integumentary Reports none; Denies abscess or rash Neurologic Neurologic: Reports none, headache(s) and paresthesias; Denies abnormal gait, confusion, focal weakness, frequent falls, loss of vision, numbness, radicular pain, vertigo or weakness Psychiatric Psychiatric: Reports systems reviewed and no addt'l complaints, except as documented and none; Denies behavioral changes, confusion, difficulty concentrating, hallucinations, suicidal ideation, tactile hallucinations or visual hallucinations Endocrine Endocrinology: Denies none, cold intolerance, excessive sweating, fatigue or heat intolerance Hematologic/Lymphatic Hematologic/Lymphatic: Reports none; Denies anemia, easy bleeding or easy bruising Allergic/Immunologic Allergic/Immunologic ED: Denies as per HPI, none, lip swelling, mouth swelling, throat swelling, tongue swelling or hives EXAM Physical Exam Const Vital Signs: 12/08/20 16:18 12/08/20 18:03 Temperature 98.6 F Temperature Source Temporal Pulse Rate 83 89 Respiratory Rate 18 24 H Blood Pressure 166/89 H 178/93 H Blood Pressure Mean 114 121 Pulse Ox 99 100 Oxygen Delivery Method Room Air Room Air Positive well nourished and well developed General Appearance ED: well developed and NAD HEENT Reports TM's clear and moist mucous membranes normocephalic and atraumatic; Negative for trauma or tenderness Tympanic Membrane ED: Yes TM's clear Eyes PERRL and EOMs intact bilaterally General Eye ED: Negative for pale conjunctiva or scleral icterus Neck no lymphadenopathy, supple and no JVD Neck Narrative: Patient has some diffuse tenderness over the C-spine and cervical paraspinal musculature bilaterally. General: tenderness Chest Wall inspection of chest normal and palpation of chest normal Chest: Negative for tenderness Resp normal respiratory effort and clear to auscultation bilaterally Effort and Inspection: Negative for respiratory distress or pain with movement Auscultation: Negative for rhonchi, wheezes or diminished lung sounds Cardio regular rate, regular rhythm, S1 normal heart sound, S2 normal heart sound and no murmurs Peripheral Pulses: pulses 2+ throughout GI normal to inspection, nondistended, nor (more content not included)... Normal [facility] H AND P Exam - [facility] 12-08-2020 H&P Exam - Hospitalist [facility] Medical Records Department [address] [place] [address] H P Exam - Hospitalist 12/08/202055 MR#: [id number] Acct: [id number] Name: ARLENE ELIZABETH Rep #: [id number] : 1965 55 From: Юлия Miranda MD PCP: Care Physician,No Primary Status:ADM IN Location: [facility] [id number] HPI - General General Date of Admission: 12/08/20 Date of Service: 12/08/20 Chief Complaint: Headache, light and sound sensitivity associated HPI Narrative The patient is a 55 y/o F w/ PMHx: Anxiety and Depression, Hx Migraines, Chronic COPD, Former Heavy Tobacco use, Hx Vulvar Dysplasia who presents to the [facility] ED on 12/08/20 with history of onset headache starting the day prior, continuous, diffuse radiating into her neck noting that she had actually lifted some heavy cans of pop approximately 2 weeks ago and at that time it felt as though she strained her neck and shoulder with onset of numbness into the 4th and 5th finger since that time with outpatient ongoing evaluation with plain film of the shoulder neck the day prior but unclear results with phonophobia and photophobia associated in addition to nausea, emesis and elev ated blood pressures during this timeline. She was recently placed on steroids of note. Patient rep orts that she has had a history of migraines prior primarily posterior and on the top, throbbing in nature with photophobia and phonophobia similar to current status although this is more severe and h as been many years since her last migraine. Work-up in the ED included T 98.6, heart rate 83, BP 166 /89, respiratory rate 18, 99% on room air, CBC with WBC 20.2, hemoglobin 12.2, platelet 249 with a l eft shift, BMP with glucose 128 otherwise not marked appearing, high-sensitivity troponin XI, CTA he ad and neck unremarkable with no acute intracranial findings and no evidence of significant stenosis or dissection. In the ED patient ministered Reglan, labetalol 20 mg IV x1, Toradol, Benadryl and m orphine. [facility] Medical History (Updated 12/09/20 @ 04:[address] Юлия Miranda MD) Anemia Anxiety Cancer COPD (chronic obstructive pulmonary disease) Depression Former smoker Intractable migraine Kidney stones Migraines Osteoporosis Home Medications escitalopram oxalate 20 mg PO DAILY 12/08/20 [History Last Taken 12/08/20] hydrocodone-acetaminophen 1 tab PO Q8H PRN PRN 12/08/20 [History Last Taken 12/08/20] hydroxyzine HCl 25 mg PO TID PRN PRN 12/08/20 [History Last Taken 12/08/20] tizanidine 4 mg PO TID PRN 12/08/20 [History Last Taken Unknown] Allergy/AdvReac Type Severity Reaction Status Date / Time No Known Allergies Allergy Verified 12/08/20 16:21 adopted Surgical History (Updated 12/09/20 @ 04:[address] Юлия Miranda MD) History of back surgery History of vulvectomy S/P breast lumpectomy Social History (Updated 12/09/20 @ 04:[address] Юлия Miranda MD) household members: children Smoking Status: Former smoker how long ago did patient quit smoking: Quit July 2020, smoked prior 1-2 ppd cigarette tobacco use since teen. alcohol intake: never substance use type: does not use ROS ROS Narrative Admission Review of Systems: CONSTITUTIONAL: No weight loss, fever, chills, + weakness or fatigue. HEENT: + Photophobia, phonophobia migraine. Eyes: No visual loss, blurred vision, double vision or yellow sclerae. Ears, Nose, Throat: No hearing loss, sneezing, congestion, runny nose or sore throat. SKIN: No rash or itching, lesions, wounds. CARDIOVASCULAR: No chest pain, chest pressure or chest discomfort, palpitations, edema, orthopnea, syncopal events. RESPIRATORY: No shortness of breath, cough or sputum, wheezing, hemoptysis. GASTROINTESTINAL: No anorexia, nausea, vomiting or diarrhea, abdominal pain, melena, BRBPR. GENITOURINARY: No dysuria, frequency, urgency or retention. NEUROLOGICAL: + Migraine headache with photophobia and phonophobia, right-sided radiculopathy with digit paresthesia, No dizziness, syncope, paralysis, ataxia, focal weakness, change in bowel or bladder control, seizure. MUSCULOSKELETAL: No muscle, back pain, joint pain or stiffness. HEMATOLOGIC: + anemia, bleeding or bruising. LYMPHATICS: No enlarged nodes. No history of splenectomy. PSYCHIATRIC: + history of depression or anxiety. ENDOCRINOLOGIC: No reports of sweating, cold or heat intolerance. No polyuria or polydipsia. ALLERGIES: No history of asthma, hives, eczema or rhinitis. Vital Signs Vital Signs Vital Signs: 12/08/20 16:18 12/08/20 18:03 Temperature 98.6 F Temperature Source Temporal Pulse Rate 83 89 Respiratory Rate 18 24 H Blood Pressure 166/89 H 178/93 H Blood Pressure Mean 114 121 Pulse Ox 99 100 Oxygen Delivery Method Room Air Room Air Weight Weight: 130 lb Body Mass Index (BMI) 22.3 Physical Exa (more content not included)... Normal [facility] L501.4020on 12-08-2020 TROPONIN-I HS 11 pg/mL Normal 3.0-54.0 [facility] Comment on above: Result Comment: Plea se Note: New Test Units and Gender Specific Reference Ranges. For more information see Policy Stat Procedure [place] High Sensitivity Troponin (TNIH) and attachments. Performed By: #### L 500.2500, L100.0100, L501.4020 ####[facility] [id number] [place], [address] Vital Signs Date Time Vital Sign Value Performing Clinician Miguel romero 02-16-2024 13:32-0500 Diastolic Blood Pressure Non-Invasive 83 mm[Hg] JESSE MEDINA DO [facility] 02-16-2024 13:32-0500 Heart rate 78 /min JESSE MEDINA DO [facility] 02-16-2024 13:32-0500 Respiratory rate 16 /min JESSE MEDINA DO [facility] 02-16-2024 13:32-0500 Systolic Blood Pressure Non-Invasive 183 mm[Hg] JESSE MEDINA DO [facility] 02-16-2024 12:37-0500 Diastolic Blood Pressure Non-Invasive 84 mm[Hg] JESSE MEDINA DO [facility] 02-16-2024 12:37-0500 Heart rate 80 /min JESSE MEDINA DO [facility] 02-16-2024 12:37-0500 Respiratory rate 20 /min JESSE MEDINA DO [facility] 02-16-2024 12:37-0500 Systolic Blood Pressure Non-Invasive 155 mm[Hg] JESSE MEDINA DO [facility] 02-16-2024 11:36-0500 Diastolic Blood Pressure Non-Invasive 80 mm[Hg] JESSE MEDINA DO [facility] 02-16-2024 11:36-0500 Heart rate 80 /min JESSE MEDINA DO [facility] 02-16-2024 11:36-0500 Systolic Blood Pressure Non-Invasive 147 mm[Hg] JESSE MEDINA DO [facility] 02-16-2024 10:50-0500 Body temperature 97.7 [degF] JESSE MEDINA DO [facility] 02-16-2024 10:50-0500 Body weight 69.6 kg JESSE MEDINA DO [facility] 02-16-2024 10:50-0500 Heart rate 85 /min JESSE MEDINA DO [facility] 02-16-2024 10:50-0500 Respiratory rate 25 /min JESSE MEDINA DO [facility] 09-28-2021 11:15-0400 Reason For Taking VItal Signs RENEE RAJAN MD [facility] 09-28-2021 11:15-0400 Respiratory rate 18 /min RENEE RAJAN MD [facility] 09-28-2021 10:31-0400 Body temperature 98.78 [degF] RENEE RAJAN MD [facility] 09-28-2021 10:31-0400 Diastolic blood pressure 73 mm[Hg] RENEE RAJAN MD [facility] 09-28-2021 10:31-0400 Heart rate 78 /min RENEE RAJAN MD [facility] 09-28-2021 10:31-0400 Mean blood pressure 88 mm[Hg] RENEE RAJAN MD [address] [place] [address] 09-28-2021 10:31-0400 Respiratory rate 20 /min RENEE RAJAN MD [facility] 09-28-2021 10:31-0400 Systolic blood pressure 118 mm[Hg] RENEE RAJAN MD [facility] 09-28-2021 07:05-0400 Body temperature 98.24 [degF] RENEE RAJAN MD [facility] 09-28-2021 07:05-0400 Diastolic blood pressure 76 mm[Hg] RENEE RAJAN MD [address] [place] [address] 09-28-2021 07:05-0400 Heart rate 74 /min RENEE RAJAN MD [facility] 09-28-2021 07:05-0400 Mean blood pressure 92 mm[Hg] RENEE RAJAN MD [address] [place] [address] 09-28-2021 07:05-0400 Respiratory rate 20 /min RENEE RAJAN MD [address] [place] [address] 09-28-2021 07:05-0400 Systolic blood pressure 123 mm[Hg] RENEE RAJAN MD [address] [place] [address] 09-28-2021 05:28-0400 Body temperature 98.78 [degF] RENEE RAJAN MD [address] [place] [address] 09-28-2021 05:28-0400 Diastolic blood pressure 68 mm[Hg] RENEE RAJAN MD [address] [place] [address] 09-28-2021 05:28-0400 Heart rate 78 /min RENEE RAJAN MD [address] [place] [address] 09-28-2021 05:28-0400 Mean blood pressure 86 mm[Hg] RENEE RAJAN MD [address] [place] [address] 09-28-2021 05:28-0400 Reason For Taking VItal Signs RENEE RAJAN MD [address] 09-28-2021 05:28-0400 Systolic blood pressure 122 mm[Hg] RENEE RAJAN MD [address] [place] [address] 09-27-2021 20:04-0400 Reason For Taking VItal Signs RENEE RAJAN MD [address] [place] [address] 09-27-2021 07:15-0400 Heart rate 65 /min RENEE RAJAN MD [address] [place] [address] 09-27-2021 04:15-0400 Heart rate 76 /min RENEE RAJAN MD [address] [place] [address] 09-25-2021 06:33-0400 Heart rate 84 /min RENEE RAJAN MD [address] [place] [address] 09-23-2021 22:23-0400 Body height 160 cm RENEE RAJAN MD [address] [place] [address] 09-23-2021 22:23-0400 Body weight 61.4 kg RENEE RAJAN MD [facility] 09-23-2021 22:23-0400 Body weight 23.98 kg/m2 RENEE RAJAN MD [facility] 09-23-2021 10:22-0400 Body weight 61.4 kg RENEE RAJAN MD [facility] 08-20-2021 00:51-0400 Diastolic blood pressure 70 mm[Hg] DR TEOFILO AMES DO [facility] 08-20-2021 00:51-0400 Systolic blood pressure 162 mm[Hg] DR TEOFILO AMES DO [facility] 08-19-2021 22:21-0400 Body temperature 98.42 [degF] DR TEOFILO AMES DO [facility] 08-19-2021 22:21-0400 Diastolic blood pressure 75 mm[Hg] DR TEOFILO AMES DO [facility] 08-19-2021 22:21-0400 Heart rate 100 /min DR TEOFILO AMES DO [facility] 08-19-2021 22:21-0400 Mean blood pressure 107 mm[Hg] DR TEOFILO AMES DO [facility] 08-19-2021 22:21-0400 Respiratory rate 16 /min DR TEOFILO AMES DO [facility] 08-19-2021 22:21-0400 Systolic blood pressure 171 mm[Hg] DR TEOFILO AMES DO [facility] 08-19-2021 20:17-0400 Body temperature 98.6 [degF] DR RED MORSHANNAN DO [facility] 08-19-2021 20:17-0400 Body weight 61.[address] RED HUI DO [facility] 08-19-2021 20:17-0400 Diastolic blood pressure 92 mm[Hg] DR RDE MORSHANNAN DO [facility] 08-19-2021 20:17-0400 Heart rate 97 /min DR RED MORSHANNAN DO [facility] 08-19-2021 20:17-0400 Respiratory rate 18 /min DR RED MORSHANNAN DO [facility] 08-19-2021 20:17-0400 Systolic blood pressure 172 mm[Hg] DR RED MORSHANNAN DO [facility] Encounters Encounter Date Encounter Type Care Provider Facility Start: 01-18-2025 sofia AN MD Facility: A Start: 01-03-2025 ambulatory GIFTY PEARL MD Faci lity:A Start: 12-27-2024 End: 12-27-2024 ambulatory NERISSA AN MD Facility:A Start: 11-30-2024 End: 11-30-2024 ambulatory NERISSA AN MD Facility:A Start: 10-07-2024 End: 10-07-2024 Emergency department patient visit MAVERICK ELLIS DO Facility:A Start: 06-03-2024 End: 06-03-2024 ambulatory NERISSA AN MD Facility:A Start: 05-07-2024 End: 05-07-2024 sofia AN MD Facility:A Start: 02-27-2024 End: 02-27-2024 ambulatory NERISSA AN MD Facility:A Start: 02-27-2024 End: 02-27-2024 Patient encounter procedure NERISSA AN MD [facility] Start: 02-24-2024 End: 02-24-2024 ambulatory NERISSA AN MD Facility:A Start: 02-16-2024 End: 02-16-2024 Emergency department patient visit JESSE MEDINA DO [facility] Start: 01-22-2024 End: 01-22-[address] BRITTON GONZALEZ MD Facility:A Start: 07-15-2023 End: 07-16-2023 ambulatory ELLIOTT YORK DO Facility:A Start: 06-30-2023 End: 07-01-2023 ambulatory ELLIOTT YORK DO Facility:A Start: 02-12-2023 End: 02-13-2023 ambulatory ELLIOTT YORK DO Facility:A Start: 02-05-2023 End: 02-06-2023 ambulatory ELLIOTT YORK DO Facility:A Start: 02-04-2023 End: 02-09-2023 ambulatory ELLIOTT YORK DO Facility:[facility] Start: 01-31-2023 End: 02-05-2023 ambulatory ELLIOTT YORK DO Facility:[facility] Start: 01-21-2023 End: 01-26-2023 ambulatory ELLIOTT YORK DO Facility:A Start: 01-15-2022 End: 01-15-2022 Patient encounter procedure ELLIOTT YORK DO [facility] Start: 10-02-2021 End: 10-02-2021 Patient encounter procedure LEANDRO DE SOUZA MD [facility] Start: 09-23-2021 End: 09-28-2021 Evaluation and management of inpatient RENEE RAJAN MD [facility] Start: 08-19-2021 End: 08-20-2021 Emergency department patient visit DR TEOFILO AMES DO [facility] Start: 12-25-2020 End: 12-25-2020 Patient encounter procedure LUIS FELIPE MONSALVE MD [facility] Procedures Date Procedure Procedure Detail Performing Clinician Start: 09-13-2013 Nerve root structure (body structure) LUIS FELIPE MONSALVE MD Comment on above: injection to lumbar back Start: 08-24-2013 Partial vulvectomy TIFFANIE MONSALVE MD Start: 08-20-2013 Cystoscopy LUIS FELIPE RÍOS MD Start: 06-04-2010 Biopsy of lymph node BE LEONID MONSALVE MD Start: 03-17-2002 Laminectomy and discectomy LUIS FELIPE MONSALVE MD Start: 03-17-1997 Laminectomy LUIS FELIPE RÍOS MD Comment on above: 1994 & 2002 Cyst - diagnostic aspiration LUIS FELIPE MONSALVE MD Comment on above: GROIN Specimen from breast obtained by biopsy (specimen) LUIS FELIPE MONSALVE MD Comment on above: benign calcification s Vaginal hysterectomy SERAFIN MONSALVE MD Immunizations Immunization Date Immunization Notes Care Provider Fa [facility] 10-01-2017 tetanus toxoid, redu cecy diphtheria toxoid, and acellular pertussis vaccine, adsorbed; Translations: [Boostrix (Tdap)] LUIS FELIPE MONSALVE MD [facility] Payers Date Payer Category Payer Private Health Insurance [id number] 2024 Unknown [id number] 2023 Unknown [id number] 1965 Unknown [id number] 2.16.8 [id number] 1965 Unknown [id number] 2.16.8 40.1.622678.3.579.2. 1965 Unknown [id number] 2.16.8 40.1.330104.3.579.2. 1965 Unknown [id number] 2.16.8 40.1.379163.3.579.2. 1965 Unknown [id number] 2.16.8 40.1.749789.3.579.2. 1965 Unknown [id number] 2.16.8 40.1.909403.3.579.2. 1965 Unknown [id number] 2.16.8 40.1.239027.3.579.2. 1965 Unknown [id number] 2.16 840.1.604337.3.579.2. 1965 Unknown [id number] 2.16 840.1.555043.3.579.2. 1965 Unknown [id number] 2.16.8 40.1.329918.3.579.2. 1965 Unknown [id number] 2.16 840.1.236691.3.579.2. 1965 Unknown [id number] 2.16 840.1.934756.3.579.2. 1965 Unknown [id number] 2.16 [id number] 1965 Unknown [id number] 2.16.8 [id number] 1965 Unknown [id number] 2.16.8 [id number]. 1966 Unknown [id number] 2.16.8 [id number]. 1966 Unknown [id number] 2.16.8 [id number]. 1965 Unknown [id number] 2.16.8 [id number] Social History Date Type Detail Facility Start: 08-09-2020 End: 02-16-2024 Ex-smoker (finding) [facility] Comment on above: QUIT JULY 2020 Sex Assigned At [facility] Functional Status Date Assessment Result Facility 02-16-2024 Functional Status Independent [facility] 02-16-2024 Functional Status Standard Safet y ID band on, Allergy Band on, Call device within reach, Bed in low position, Wheels locked, Upper/Half-Length side-rails up, Phone within reach, personal items within reach, Safety level maintained [facility] 09-28-2021 Functional Status Room check performed [facility] 09-28-2021 Functional Status [facility] 09-28-2021 Functional Status [facility] 09-28-2021 Functional Status [facility] 09-28-2021 Functional Status [facility] 09-27-2021 Functional Status [facility] 09-26-2021 Functional Status Hospital bed [facility] 09-26-2021 Functional Status [facility] 09-26-2021 Functional Status [facility] 09-25-2021 Functional Status 25 [facility] 09-25-2021 Functional Status Patient refused [facility] 09-24-2021 Functional Status [facility] 09-24-2021 Functional Status Done [facility] 09-24-2021 Functional Status Single level home [facility] 08-20-2021 Functional Status Independent [facility] 08-19-2021 Functional Status Standard Safet y ID band on, Call device within reach, Bed in low position, Wheels locked, Upper/Half-Length side-rails up, Phone within reach, personal items within reach, Safety level maintained [facility] Mental Status Date Assessment Result Facility 02-16-2024 Mental Status Orientation Oriented x 4 [facility] 02-16-2024 Mental Status [facility] 09-28-2021 Mental Status Oriented x 4 [facility] 09-28-2021 Mental Status [facility] 09-27-2021 Mental Status [facility] 08-20-2021 Mental Status Orientation Oriented x 4 [facility] 08-19-2021 Mental Status [facility] Clinical Notes 12-10-2020 to 02-27-2024 Laboratory Note Date & Type Note Facility 02-27-2024 Note ORIGINAL EXAMINATION: RIGHT UPPER QUADRANT ULTRASOUND 02/27/2024 8:48 am All images were recorded and archived. COMPARISON: None. HISTORY: ORDERING SYSTEM PROVIDED HISTORY: Reason for Exam: NAUSEA FINDINGS: LIVER: The liver demonstrates normal echogenicity without evidence of intrahepatic biliary ductal dilatation. BILIARY SYSTEM: 1 cm gallstones seen within the gallbladder. No gallbladder wall thickening or pericholecystic fluid. Negative sonographic Pacheco's sign. Common bile duct is borderline dilated measuring 7.6 mm. RIGHT KIDNEY: The right kidney is grossly unremarkable without evidence of hydronephrosis. PANCREAS: The main pancreatic duct is borderline dilated at 2.8 mm.. OTHER: No evidence of right upper quadrant ascites. IMPRESSION: Cholelithiasis. Borderline dilation of the common duct. Borderline dilation of the main pancreatic duct. Correlate with alk-phos, direct bilirubin, and lipase to determine need for further evaluation with MRCP or ERCP. I have personally reviewed the images of this examination and agree with the resident's findings and interpretation. Interpreted by: Tj Moser DO Preliminary Report By: Amado Aguilar MD Electronically signed By Tj Moser DO Dictated Date: 02/27/2024 10:40:03 AM Prelim Date: 02/27/2024 10:56:01 AM Sign Date: 02/27/2024 10:56:01 AM Ordering Provider: NERISSA AN [facility] 02-16-2024 Hospital Discharge instructions Patient Education 02/16/2024 13:13:06 Shoulder Contusion Shoulder Contusion You have a shoulder injury called a contusion. This causes pain, swelling, and sometimes bruising on the skin. You don t have any broken bones. This injury will take from a few days to several weeks to heal, depending on how severe it is. Moderate to severe shoulder contusions are treated with a sling or shoulder immobilizer. Minor contusions can be treated without any special support. Home care Follow these tips when caring for yourself at home: If you were given a sling to use, leave it in place for the time advised by your healthcare provider. If you aren t sure how long to wear it, ask for advice. If the sling becomes loose, adjust it so that your forearm is level with the ground. Your shoulder should feel well supported. Put an ice pack on the injured area for 20 minutes every 1 to 2 hours the first day. You can make your own ice pack by putting ice cubes in a plastic bag. Wrap the bag in a thin towel. Continue with ice packs 3 to 4 times a day for the next 2 days. Then use the pack as needed to ease pain and swelling. You may use acetaminophen or ibuprofen to control pain, unless another pain medicine was prescribed. If you have chronic liver or kidney disease, talk with your healthcare provider before using these medicines. Also talk with your provider if you ve ever had a stomach ulcer or GI bleeding. Shoulder and elbow joints become stiff if left in a sling for too long. You should start range of motion exercises about 7 to 10 days after the injury. Talk with your provider to find out what type of exercises to do and how soon to start. Unless your provider told you otherwise, you can take the sling off to shower or bathe. Follow-up care Follow up with your healthcare provider if you don t start getting better in the next 5 days. When to seek medical advice Call your healthcare provider right away if any of these occur: Pain or swelling gets worse or continues for more than a few days Large amount of bruising on your shoulder or upper arm Your hand or fingers become cold, blue, numb, or tingly Difficulty moving your hand or fingers Weakness in your hand or fingers Your shoulder becomes stiff Your shoulder feels like it is popping out You aren t able to do your daily activities 7210-18[address] [employer]. [address] [place] [address], [place] [address]. All rights reserved. This information is not intended as a substitute for professional medical care. Always follow your healthcare professional's instructions. Follow Up Care 02/16/2024 10:44:56 With:NERISSA AN MD Address: [address] [place] [address] [place] [address]- [phone] When:2-4 days [facility] 02-16-2024 Evaluation + Plan note Future Scheduled TestsHepatitis C Antibody IgG 02/16/24IV 03/18 Ab 02/16/24 [facility] 02-16-2024 Emergency department Discharge summary Discharge Instructions Thank you for allowing [facility] to assist you with your healthcare needs. The following is important discharge information regarding your hospital visit. Diagnosis from Today's Visit Hypertension Shoulder pain What to Do Next Instructions from Your Care Team No qualifying data available. Post Acute Orders No qualifying data available. You Need to Schedule the Following Appointments Follow Up with NERISSA AN MD When:Within 2-4 days Where:[address] [place] [address] [place] [address]- [phone] Allergies labetalol (Moderate) Medications Please ask your primary doctor or pharmacist before taking any other medication not listed, including over the counter drugs, herbal medications, vitamins and or supplements as they may interact with your home medications. What How Much When Instructions Last Dose New hydrochlorothiazide-lisinopril (hydrochlorothiazide-lisinopril 12.5 mg-10 mg oral tablet) 1 tab(s) by mouth Every day Printed Prescription Unchanged acetaminophen-diphenhydramine (Tylenol PM Extra Strength oral tablet) 1 tab(s) by mouth Daily at bedtime as needed for Sleep / Insomnia Unchanged acetaminophen-hydrocodone (acetaminophen-hydrocodone 325 mg-7.5 mg oral tablet) 1 tab(s) by mouth Every 6 hours Unchanged hydrOXYzine (hydrOXYzine hydrochloride 25 mg oral tablet) 1 tab(s) by mouth Three (3) times a day as needed for as needed for anxiety Unchanged tiZANidine (tiZANidine 4 mg oral tablet) 1 tab(s) by mouth Four (4) times a day as needed for Muscle spasm Please take this list to your next doctor s visit. Bring all medications you take, including over the counter medications, herbals and other supplements with you to your doctor s visit. Patients and families are reminded to discard old lists and to update any records with all medication providers or retail pharmacies. Education Materials Shoulder Contusion You have a shoulder injury called a contusion. This causes pain, swelling, and sometimes bruising on the skin. You don t have any broken bones. This injury will take from a few days to several weeks to heal, depending on how severe it is. Moderate to severe shoulder contusions are treated with a sling or shoulder immobilizer. Minor contusions can be treated without any special support. Home care Follow these tips when caring for yourself at home: If you were given a sling to use, leave it in place for the time advised by your healthcare provider. If you aren t sure how long to wear it, ask for advice. If the sling becomes loose, adjust it so that your forearm is level with the ground. Your shoulder should feel well supported. Put an ice pack on the injured area for 20 minutes every 1 to 2 hours the first day. You can make your own ice pack by putting ice cubes in a plastic bag. Wrap the bag in a thin towel. Continue with ice packs 3 to 4 times a day for the next 2 days. Then use the pack as needed to ease pain and swelling. You may use acetaminophen or ibuprofen to control pain, unless another pain medicine was prescribed. If you have chronic liver or kidney disease, talk with your healthcare provider before using these medicines. Also talk with your provider if you ve ever had a stomach ulcer or GI bleeding. Shoulder and elbow joints become stiff if left in a sling for too long. You should start range of motion exercises about 7 to 10 days after the injury. Talk with your provider to find out what type of exercises to do and how soon to start. Unless your provider told you otherwise, you can take the sling off to shower or bathe. Follow-up care Follow up with your healthcare provider if you don t start getting better in the next 5 days. When to seek medical advice Call your healthcare provider right away if any of these occur: Pain or swelling gets worse or continues for more than a few days Large amount of bruising on your shoulder or upper arm Your hand or fingers become cold, blue, numb, or tingly Difficulty moving your hand or fingers Weakness in your hand or fingers Your shoulder becomes stiff Your shoulder feels like it is popping out You aren t able to do your daily activities 8900-4819 [employer] [address] [place] [address]. All rights reserved. This information is not intended as a substitute for professional medical care. Always follow your healthcare professional's instructions. Additional Information VACCINATE! IT SAVES LIVES! Members of the community who have not yet received the COVID-19 vaccine and would like to receive it can visit one of [facility] vaccine clinics. There are many vaccine clinic locations within the [facility]. For locations and available times, please visit [email or web address] [email or web address] It is important to note that some COVID mobile vaccine clinics are held outdoors and may be canceled in rainy or stormy conditions. To learn more about pediatric vaccinations (ages 5-11), we invite you to visit the [employer] webpage. https://www.[employer].org/pag es/2147-Gosoy-Mxyzjbsppte-Frequent bi-Zvjnp-Iemgruwry.html To learn more about the COVID-19 vaccine, we invite you to visit the CDC website for a list of frequently asked questions. https://www.cdc.gov/coronavirus/20 19-ncov/vaccines/faq.html [facility] Patient Portal Access Instructions: Stay connected with your healthcare team and access your personal medical information anytime with the [facility] Patient Portal. If you would like a full copy of your medical records please contact the [facility] Medical Records Department Friday through Friday between 8a.m. and 4:30p.m. Please follow the directions below to access the portal: 1.Access the email account you provided upon registration to the [facility].2.Look for an invitation email from [facility].3.Open the email and access the invitation link: Accept Invitation to [facility]4.Fill in the required ruiz to create your account. Sign into [email or web address] with your username and password that you created in the above steps to stay up to date. You can then view a summary of results, a summary of your visits, and the ability to download your summaries to your computer or send the information securely to a physician. Remember that your healthcare information is confidential, so carefully consider who you will allow to register on the [facility] Patient Portal for access to your information. You can also access the [facility] Patient Portal on the [employer] anup. Simply click on Health Records under Health Data and then click on the [employer] logo. HOW TO SAFELY DISPOSE OF PRESCRIPTION MEDICATIONS Please use one of the following methods to safely dispose of your unused medications. 1.Use a drug disposal kit: the drug disposal pouch allows you to safely discard your old and unused drugs. Ask your nurse to give you one when you are discharged.2.Visit a local take-back location: Many local pharmacies and police departments have programs that collect old and unwanted prescription drugs. Call your local pharmacy or go to http://[employer]/4W1Rj4o to find one close to you.3.Make use of household items: Use cat litter or old coffee grounds to dispose medications if other options are not available. Mix your drugs with these household products, seal them in an airtight container and throw it into the garbage. Call [facility]: [phone] to be sure your drugs can be disposed of in this way. Some medicines may require a different approach.4.Never flush your medications down the toilet. IF YOU HAVE BEEN PRESCRIBED AN OPIOIDS FOR PAIN If you have been prescribed an opioid (such as hydrocodone, oxycodone or morphine), it is critical to understand the possible side effects and risks of opioid pain medications. Even when taken as directed, opioids can have several side effects including: Tolerance, meaning you might need to take more of a medication for the same pain relief. Nausea, vomiting and/or constipation. Sleepiness, dizziness, dry mouth, confusion, depression or itching. Physical dependence, meaning you have withdrawal symptoms when a medication is stopped ? this can develop within a few days. KNOW YOUR RESPONSIBILITIES It is important to know exactly how much and how often to take the opioid pain medications you are prescribed. Never take opioids in higher amounts or more often than prescribed. Do not combine opioids with alcohol or other drugs that cause drowsiness, such as benzodiazepines, also known as benzos, including diazepam and alprazolam, muscle relaxants or sleep aids. Never sell or share prescription opioids. This is illegal. Store opioids in a secure place and out of reach of others (including children, family, friends and visitors). The last page(s) of this document has been signed and retained as a CHART COPY Signatures Patient Education Materials Shoulder Contusion Medication Leaflets My discharge plan and instructions have been reviewed and explained to me and I,ARLENE ELIZABETH understand my current condition and have read and understand these discharge instructions. I have received a written copy of the plan/instructions. If I have questions, I am aware that I should contact my doctor. Patient/Stone Mason Signature: Date/Time: Relationship to Patient: ___ Witness Name/Signature: Date/Time: [facility] 02-16-2024 Note ORIGINAL EXAMINATION: ONE XRAY VIEW OF THE CHEST02/16/2024 11:37 am COMPARISON: 09/23/2021 HISTORY: ORDERING SYSTEM PROVIDED HISTORY: Reason for Exam: chest pain FINDINGS: The cardiomediastinal contours are normal. There is no consolidation, vascular congestion, pleural effusion, or pneumothorax. There are no acute abnormalities to osseous structures. IMPRESSION: No acute radiographic findings. Interpreted by: Aren Staples DO Preliminary Report By: Aren Staples DO Electronically signed By Aren Staples DO Dictated Date: 02/16/2024 11:40:22 AM Prelim Date: 02/16/2024 11:42:13 AM Sign Date: 02/16/2024 11:42:13 AM [facility] Note ORIGINAL EXAMINATION: TWO XRAY VIEWS OF THE LEFT JIADXEQF67/2/2024 11:37 am COMPARISON: None HISTORY: ORDERING SYSTEM PROVIDED HISTORY: Reason for Exam: pain FINDINGS: There is no glenohumeral fracture or dislocation. There is no acromioclavicular joint widening. There is minimal AC joint spurring. The coracoclavicular distance is maintained. The included thoracic structures are normal. IMPRESSION: No acute fracture or dislocation. Interpreted by: Aren Staples DO Preliminary Report By: Aren Staples DO Electronically signed By Aren Staples DO Dictated Date: 02/16/2024 11:38:45 AM Prelim Date: 02/16/2024 11:39:53 AM Sign Date: 02/16/2024 11:39:53 AM Ordering Provider: JESSE MEDINA [facility] 02-16-2024 Note SINUS RHYTHM Electronic Signature: CORTEZ JOSE MD 02/16/2024 11:34:41 [facility] 09-28-2021 Discharge summary Date of Service 09/28/2021 Discharge Diagnosis Sigmoid diverticulitis CBD and pancreatic duct dilation Resolved nausea/vomiting Resolved diarrhea COVID positive Additional Orders: Discontinued: Discharge,09/27/21 15:11:00 EDT, Discharged to: Home Other status: KCL,Start: 09/28/21 9:30:00 EDT, Dose = 40 mEq, = 2 tab(s), Oral, Once, Stop: 09/28/21 9:30:00 EDT, with food/meal, 09/28/21 9:30:00 EDT(Complete) Discontinued: metroNIDAZOLE 500 mg oral tablet,Dose : 500 mg = 1 tab(s), Oral, q8hr, X 6 day(s), # 18 tab(s), 0 Refill(s), 10/03/21 15:04:00 EDT, Pharmacy: [id number] [address], 160, cm, 09/23/21 22:23:00 EDT, Height, 61.4 Hospital Course 56-year-old female with recent acute sigmoid diverticulitis on 09/07 presenting with continuous and worsening of lower abdominal pain, nausea, vomiting and constipation. In the ED, patient was febrile, tachycardic, with no leukocytosis. BMP was unremarkable and UA showed trace bacteriuria. CT abdomen showed a moderate diverticulitis without abscess or pneumoperitoneum. CT also showed dilated common and pancreatic ducts. Patient got 1 L bolus of normal saline, analgesics and 1 dose of Cifran and Flagyl in ER. After admission to inpatient team, patient was started on rocephin and flagyl. For two consecutive nights, patient had diffuse and watery diarrhea. C. diff toxin was negative however clinical suspicion of c.diff infection was still high, so patient was given oral vancomycin. Surgery has examined the patient and recommend conservative management. MRCP was performed for analyzing the dilated common and pancreatic ducts. Result showed no choledocholithiasis, no cholecystitis, and low suspicion for pancreatic malignancy. Patient's LFT and alk phos levels are unremarkable and does not suggest any pancreatic malignancy. Patient is covid positive but does not have any shortness of breath, cough, or respiratory distress. Given patient's past history of smoking, HTN, and COPD, bebtelovimab was suggested as a treatment and patient declined. On the day of discharge, she was able to tolerate regular diet. Her diarrhea has resolved. Patient is discharged with oral Augmentin for 5 days to complete her medicine regiment for acute diverticulitis. She can advance activity as tolerated. Allergies labetalol Procedures MRCP Consults Consult to Physician (Physician Consult) - Ordered -- 09/24/21 11:57:00 GOMEZ VIDAL NICHOLAS B MD, Routine, Acute sigmoid diverticulitis Imaging Results and Diagnostics MRI MRPC Result Date: September 26, 2021 Verified By: KENNETH CALDERON MD CLINICAL STATEMENT: IMPRESSION: Mild common bile duct dilatation without evidence of choledocholithiasis.Correlation with alkaline phosphatase is recommended with further evaluation with ERCP as clinically indicated. Mild pericholecystic fluid, likely reactive. No secondary signs ofcholecystitis. Trace ascites, nonspecific and may be reactive. Trace bilateral pleural effusions, right more than left. I have personally reviewed the images of this examination and agree with theresident's findings and interpretation. US Abdomen Limited Result Date: September 23, 2021 Verified By: IDALMIS SO MD CLINICAL STATEMENT: IMPRESSION: Dilated common bile duct and pancreatic ducts, concerning for distal obstruction or sphincter dysfunction. Consider further evaluation with MRCP or ERCP. Nonshadowing subcentimeter echogenic focus along the dependent portion of the gallbladder, nonspecific, could relate to a tiny cholelithiasis, minimal sludge or polyp. I have personally reviewed the images of this examination and agree with the resident's findings and interpretation. XR Chest 1 View Result Date: September 23, 2021 Verified By: CASTRO PARMAR MD CLINICAL STATEMENT: IMPRESSION: No acute cardiopulmonary process. CT Abd/Pelvis w/ IV Contrast Only Result Date: September 23, 2021 Verified By: SYLWIA PALMER MD CLINICAL STATEMENT: IMPRESSION: 1. Moderate diverticulitis similar to the prior examination without evidence of an abscess or pneumoperitoneum.2. Interval appearing mild ascites.3. Dilated common and pancreatic ducts. Correlate with alkaline phosphatasel evels and ultrasound. Physical Exam Vitals and Measurements T: 37.1 C (Oral) TMIN: 36.8 C (Oral) TMAX: 37.1 C (Oral) HR: 78(Monitored) RR: 18 BP: 118/73 SpO2: 96% Weight Dosing Weight: 61.4 kg (09/23/21) Dosing Weight: 61.4 kg (09/23/21) Pending Labs and Studies none Code Status FULL CODE Admission Date 09/23/2021 Discharge Date 09/28/2021 Patient Instructions To the hospital due to diverticulitis. you are being discharged home with Augmentin to be continued for five additional days and while taking this medication please make sure to take probiotics [natural sources for this Kefir, kimchi, kombucha, and yogurt]. If you are experiencing pain, avoid NSAIDs but you can take Tylenol [id number]. Zofran has been prescribed for you to use when you feel nauseous. Please consume bland small frequent meals that are low in fiber, high in probiotics, and keep well hydrated. During your hospitalization your potassium and magnesium levels were found to be low so please obtain blood work prior to seeing your primary care physician. You should have a colonoscopy done as outpatient after six weeks once inflammation has resolved so please discuss this with your primary care. Please advance your activity as tolerated. You were also found to be incidentally positive for COVID. It is unclear whether your diarrhea was related but continue to self isolate for an additional five days and wear your mask when going out of your home. Consider getting the COVID vaccine once out of your window of isolation and diarrhea is completely resolved. Your CT had shown pulmonary nodules incidentally which should be followed up with your primary care physician as outpatient given your smoking history. Medications New Prescription amoxicillin-clavulanate (amoxicillin-clavulanate 875 mg-125 mg oral tablet)1 tab(s) by mouth every 12 hours for 6 Days. Refills: 0. ondansetron (Zofran 4 mg oral tablet)1 tab(s) by mouth every 8 hours as needed Nausea/Vomiting. Refills: 0. Changed tiZANidine (tiZANidine 4 mg oral tablet)1 tab(s) by mouth four (4) times a day as needed Muscle spasm. Unchanged acetaminophen-diphenhydramine (Tylenol PM Extra Strength oral tablet)1 tab(s) by mouth daily at bedtime as needed Sleep / Insomnia. acetaminophen-hydrocodone (acetaminophen-hydrocodone 325 mg-7.5 mg oral tablet)1 tab(s) by mouth every 6 hours. hydrOXYzine (hydrOXYzine hydrochloride 25 mg oral tablet)1 tab(s) by mouth three (3) times a day as needed as needed for anxiety. Discontinued ibuprofen (ibuprofen 600 mg oral tablet)1 tab(s) by mouth every 6 hours as needed as needed for pain. Refills: 1. Follow Up Follow Up with ELLIOTT GILLIS DO When Within 3-7 days Why: please call clinic to make appointment with your PCP for hospital discharge followup. Where: [address] [place] [address] [place] [address]- [phone] Follow Up Appointments No qualifying data available. Follow Up Labs/Studies Discharge Labs Discharge Outpatient Labwork - Ordered -- BMP, Mg, hypokalemia, hypomagnesemia, follow-up within: 1 week, Results Notify to: ELLIOTT GILLIS DO, 09/28/21 7:45:00 EDT Discharge Diet REGULAR DIET Discharge Activity REGULAR ACTIVITY, NO RESTRICTIONS Condition on Discharge STABLE Discharge Disposition HOME Digitally Signed by DILCIA MILLS MD on 09/28/2021 03:23 PM [facility] 09-28-2021 Discharge summary Date of Service 09/28/2021 Discharge Diagnosis Sigmoid diverticulitis CBD and pancreatic duct dilation Resolved nausea/vomiting Resolved diarrhea COVID positive Additional Orders: Discontinued: Discharge,09/27/21 15:11:00 EDT, Discharged to: Home Other status: KCL,Start: 09/28/21 9:30:00 EDT, Dose = 40 mEq, = 2 tab(s), Oral, Once, Stop: 09/28/21 9:30:00 EDT, with food/meal, 09/28/21 9:30:00 EDT(Complete) Discontinued: metroNIDAZOLE 500 mg oral tablet,Dose : 500 mg = 1 tab(s), Oral, q8hr, X 6 day(s), # 18 tab(s), 0 Refill(s), 10/03/21 15:04:00 EDT, Pharmacy: [id number] [address], 160, cm, 09/23/21 22:23:00 EDT, Height, 61.4 Hospital Course 56-year-old female with recent acute sigmoid diverticulitis on 09/07 presenting with continuous and worsening of lower abdominal pain, nausea, vomiting and constipation. In the ED, patient was febrile, tachycardic, with no leukocytosis. BMP was unremarkable and UA showed trace bacteriuria. CT abdomen showed a moderate diverticulitis without abscess or pneumoperitoneum. CT also showed dilated common and pancreatic ducts. Patient got 1 L bolus of normal saline, analgesics and 1 dose of Cifran and Flagyl in ER. After admission to inpatient team, patient was started on rocephin and flagyl. For two consecutive nights, patient had diffuse and watery diarrhea. C. diff toxin was negative however clinical suspicion of c.diff infection was still high, so patient was given oral vancomycin. Surgery has examined the patient and recommend conservative management. MRCP was performed for analyzing the dilated common and pancreatic ducts. Result showed no choledocholithiasis, no cholecystitis, and low suspicion for pancreatic malignancy. Patient's LFT and alk phos levels are unremarkable and does not suggest any pancreatic malignancy. Patient is covid positive but does not have any shortness of breath, cough, or respiratory distress. Given patient's past history of smoking, HTN, and COPD, bebtelovimab was suggested as a treatment and patient declined. On the day of discharge, she was able to tolerate regular diet. Her diarrhea has resolved. Patient is discharged with oral Augmentin for 5 days to complete her medicine regiment for acute diverticulitis. She can advance activity as tolerated. Allergies labetalol Procedures MRCP Consults Consult to Physician (Physician Consult) - Ordered -- 09/24/21 11:57:00 EDT, CASTRO DYER MD, Routine, Acute sigmoid diverticulitis Imaging Results and Diagnostics MRI [facility] Result Date: September 26, 2021 Verified By: KENNETH CALDERON MD CLINICAL STATEMENT: IMPRESSION: Mild common bile duct dilatation without evidence of choledocholithiasis.Correlation with alkaline phosphatase is recommended with further evaluation with ERCP as clinically indicated. Mild pericholecystic fluid, likely reactive. No secondary signs ofcholecystitis. Trace ascites, nonspecific and may be reactive. Trace bilateral pleural effusions, right more than left. I have personally reviewed the images of this examination and agree with theresident's findings and interpretation. US Abdomen Limited Result Date: September 23, 2021 Verified By: IDALMIS SO MD CLINICAL STATEMENT: IMPRESSION: Dilated common bile duct and pancreatic ducts, concerning for distal obstruction or sphincter dysfunction. Consider further evaluation with MRCP or ERCP. Nonshadowing subcentimeter echogenic focus along the dependent portion of the gallbladder, nonspecific, could relate to a tiny cholelithiasis, minimal sludge or polyp. I have personally reviewed the images of this examination and agree with the resident's findings and interpretation. XR Chest 1 View Result Date: September 23, 2021 Verified By: CASTRO PARMAR MD CLINICAL STATEMENT: IMPRESSION: No acute cardiopulmonary process. CT Abd/Pelvis w/ IV Contrast Only Result Date: September 23, 2021 Verified By: SYLWIA PALMER MD CLINICAL STATEMENT: IMPRESSION: 1. Moderate diverticulitis similar to the prior examination without evidence of an abscess or pneumoperitoneum.2. Interval appearing mild ascites.3. Dilated common and pancreatic ducts. Correlate with alkaline phosphatasel evels and ultrasound. Physical Exam Vitals and Measurements T: 37.1 C (Oral) TMIN: 36.8 C (Oral) TMAX: 37.1 C (Oral) HR: 78(Monitored) RR: 18 BP: 118/73 SpO2: 96% Weight Dosing Weight: 61.4 kg (09/23/21) Dosing Weight: 61.4 kg (09/23/21) Pending Labs and Studies none Code Status FULL CODE Admission Date 09/23/2021 Discharge Date 09/28/2021 Patient Instructions To the hospital due to diverticulitis. you are being discharged home with Augmentin to be continued for five additional days and while taking this medication please make sure to take probiotics [natural sources for this Kefir, kimchi, kombucha, and yogurt]. If you are experiencing pain, avoid NSAIDs but you can take Tylenol [id number]. Zofran has been prescribed for you to use when you feel nauseous. Please consume bland small frequent meals that are low in fiber, high in probiotics, and keep well hydrated. During your hospitalization your potassium and magnesium levels were found to be low so please obtain blood work prior to seeing your primary care physician. You should have a colonoscopy done as outpatient after six weeks once inflammation has resolved so please discuss this with your primary care. Please advance your activity as tolerated. You were also found to be incidentally positive for COVID. It is unclear whether your diarrhea was related but continue to self isolate for an additional five days and wear your mask when going out of your home. Consider getting the COVID vaccine once out of your window of isolation and diarrhea is completely resolved. Your CT had shown pulmonary nodules incidentally which should be followed up with your primary care physician as outpatient given your smoking history. Medications New Prescription amoxicillin-clavulanate (amoxicillin-clavulanate 875 mg-125 mg oral tablet)1 tab(s) by mouth every 12 hours for 6 Days. Refills: 0. ondansetron (Zofran 4 mg oral tablet)1 tab(s) by mouth every 8 hours as needed Nausea/Vomiting. Refills: 0. Changed tiZANidine (tiZANidine 4 mg oral tablet)1 tab(s) by mouth four (4) times a day as needed Muscle spasm. Unchanged acetaminophen-diphenhydramine (Tylenol PM Extra Strength oral tablet)1 tab(s) by mouth daily at bedtime as needed Sleep / Insomnia. acetaminophen-hydrocodone (acetaminophen-hydrocodone 325 mg-7.5 mg oral tablet)1 tab(s) by mouth every 6 hours. hydrOXYzine (hydrOXYzine hydrochloride 25 mg oral tablet)1 tab(s) by mouth three (3) times a day as needed as needed for anxiety. Discontinued ibuprofen (ibuprofen 600 mg oral tablet)1 tab(s) by mouth every 6 hours as needed as needed for pain. Refills: 1. Follow Up Follow Up with ELLIOTT GILLIS DO When Within 3-7 days Why: please call clinic to make appointment with your PCP for hospital discharge followup. Where: [address] [facility] [place] [address]- [phone] Follow Up Appointments No qualifying data available. Follow Up Labs/Studies Discharge Labs Discharge Outpatient Labwork - Ordered -- BMP, Mg, hypokalemia, hypomagnesemia, follow-up within: 1 week, Results Notify to: ELLIOTT GILLIS DO, 09/28/21 7:45:00 EDT Discharge Diet REGULAR DIET Discharge Activity REGULAR ACTIVITY, NO RESTRICTIONS Condition on Discharge STABLE Discharge Disposition HOME Digitally Signed by DILCIA MILLS MD on 09/28/2021 03:23 PM [facility] 09-28-2021 Discharge summary Date of Service 09/27/21 Discharge Diagnosis Sigmoid diverticulitis CBD and pancreatic duct dilation Resolved nausea/vomiting Resolved diarrhea COVID positive Hospital Course 56-year-old female with recent acute sigmoid diverticulitis on 09/07 presenting with continuous and worsening of lower abdominal pain, nausea, vomiting and constipation. In the ED, patient was febrile, tachycardic, with no leukocytosis. BMP was unremarkable and UA showed trace bacteriuria. CT abdomen showed a moderate diverticulitis without abscess or pneumoperitoneum and dilated common and pancreatic ducts. Patient got 1 L bolus of normal saline, analgesics and 1 dose of Cifran and Flagyl in ER. After admission to inpatient team, patient was started on rocephin and flagyl. For two consecutive nights, patient had diffuse and watery diarrhea. C. diff toxin was negative however clinical suspicion of c.diff infection was still high, so patient was given oral vancomycin. Surgery has examined the patient and recommend conservative management. MRCP was performed for analyzing the dilated common and pancreatic ducts. Result showed no choledocholithiasis, no cholecystitis, and low suspicion for pancreatic malignancy. Patient's LFT and alk phos levels are unremarkable and does not suggest any pancreatic malignancy. Patient is covid positive but does not have any shortness of breath, cough, or respiratory distress. Given patient's past history of smoking, HTN, and COPD, bebtelovimab was suggested as a treatment and patient declined. On the day of discharge, she was able to tolerate clear liquids diet. Her diarrhea has resolved. Patient is discharged with oral flagyl and Augmentin for 6 days to complete her medicine regiment for acute diverticulitis. She can advance diet and advance activity as tolerated. Allergies labetalol Procedures MRCP Consults Consult to Physician (Physician Consult) - Ordered -- 09/24/21 11:57:00 EDT, CASTRO DYER MD, Routine, Acute sigmoid diverticulitis Imaging Results and Diagnostics MRI [facility] Result Date: September 26, 2021 Verified By: KENNETH CALDERON MD CLINICAL STATEMENT: IMPRESSION: Mild common bile duct dilatation without evidence of choledocholithiasis.Correlation with alkaline phosphatase is recommended with further evaluationwith ERCP as clinically indicated. Mild pericholecystic fluid, likely reactive. No secondary signs ofcholecystitis. Trace ascites, nonspecific and may be reactive. Trace bilateral pleural effusions, right more than left. I have personally reviewed the images of this examination and agree with theresident's findings and interpretation. US Abdomen Limited Result Date: September 23, 2021 Verified By: IDALMIS SO MD CLINICAL STATEMENT: IMPRESSION: Dilated common bile duct and pancreatic ducts, concerning for distalobstruction or sphincter dysfunction. Consider further evaluation with MRCPor ERCP. Nonshadowing subcentimeter echogenic focus along the dependent portion of thegallbladder, nonspecific, could relate to a tiny cholelithiasis, minimalsludge or polyp. I have personally reviewed the images of this examination and agree with the resident's findings and interpretation. XR Chest 1 View Result Date: September 23, 2021 Verified By: CASTRO PARMAR MD CLINICAL STATEMENT: IMPRESSION: No acute cardiopulmonary process. CT Abd/Pelvis w/ IV Contrast Only Result Date: September 23, 2021 Verified By: SYLWIA PALMER MD CLINICAL STATEMENT: IMPRESSION: 1. Moderate diverticulitis similar to the prior examination without evidenceof an abscess or pneumoperitoneum.2. Interval appearing mild ascites.3. Dilated common and pancreatic ducts. Correlate with alkaline phosphataselevels and ultrasound. Physical Exam Vitals and Measurements T: 36.8 C (Oral) TMIN: 36.8 C (Oral) TMAX: 37.3 C (Oral) HR: 65 RR: 18 BP: 139/70 SpO2: 93% Weight Dosing Weight: 61.4 kg (09/23/21) Dosing Weight: 61.4 kg (09/23/21) General Appearance: looks stated aged, no acute distress Head: Normocephalic, atraumatic EENT: No scleral icterus Neck: Supple, no masses Cardiac: RRR, normal S1, S2 Lungs: Equal air entry bilaterally, no wheezing Abdomen: No scars, distention, organomegaly. Normal active bowel sounds. No tenderness upon light palpation. No tenderness upon soft palpation. Tenderness in bilateral lower quadrants upon deep palpation. Negative Rovsing sign. No dullness to percussion, no jaundice. Musculoskeletal: Full ROM Neurological: Alert oriented x3, no neurological deficits Skin: No ulcers, rash Psychiatric: Normal affect, judgment and insight is normal Pending Labs and Studies none Code Status Code Status - Ordered -- 09/23/21 14:19:00 EDT, Full Code, Constant Order Admission Date 09/23/21 Discharge Date 09/27/21 Patient Instructions You were admitted to the hospital inpatient service for acute diverticulitis. You received treatment with IV fluids, antibiotics including rocephin and flagyl. You are being discharged home with oral antibiotics. Please follow the instructions for taking these medications. You can advance your diet as tolerated starting with clear liquids. There are no activity restrictions so proceed to advance activity as you tolerate. Medications New Prescription amoxicillin-clavulanate (amoxicillin-clavulanate 875 mg-125 mg oral tablet)1 tab(s) by mouth every 12 hours for 6 Days. Refills: 0. metroNIDAZOLE (metroNIDAZOLE 500 mg oral tablet)1 tab(s) by mouth every 8 hours for 6 Days. Refills: 0. Changed tiZANidine (tiZANidine 4 mg oral tablet)1 tab(s) by mouth four (4) times a day as needed Muscle spasm. Unchanged acetaminophen-diphenhydramine (Tylenol PM Extra Strength oral tablet)1 tab(s) by mouth daily at bedtime as needed Sleep / Insomnia. acetaminophen-hydrocodone (acetaminophen-hydrocodone 325 mg-7.5 mg oral tablet)1 tab(s) by mouth every 6 hours. hydrOXYzine (hydrOXYzine hydrochloride 25 mg oral tablet)1 tab(s) by mouth three (3) times a day as needed as needed for anxiety. ibuprofen (ibuprofen 600 mg oral tablet)1 tab(s) by mouth every 6 hours as needed as needed for pain. Refills: 1. Follow Up Follow Up with ELLIOTT GILLIS DO When Within 3-7 days Why: please call clinic to make appointment with your PCP for hospital discharge followup. Where: [address] [place] [address] [place] [address]- [phone] Follow Up Appointments No qualifying data available. Follow Up Labs/Studies Discharge Labs No Follow-up Labs Discharge Studies No Follow-up Studies Discharge Diet Discharge Diet - Ordered -- Type of Diet: Regular, Diet Restrictions: Low bulk, 09/27/21 15:11:00 EDT Discharge Activity Discharge Activity - Ordered -- Activity As Tolerated, 09/27/21 15:11:00 EDT Condition on Discharge Stable Discharge Disposition Home Digitally Signed by DILCIA MILLS MD on 09/27/2021 04:00 PM [facility] 09-28-2021 Hospital Discharge instructions Patient Education 09/28/2021 10:50:07 Diverticulitis, [id number] Diverticulitis Diverticulitis is when small pockets in your large intestine (colon) get infected or swollen. This causes stomach pain and watery poop (diarrhea). These pouches are called diverticula. They form in people who have a condition called diverticulosis. Follow these instructions at home: Medicines Take emia-uny-makodre and prescription medicines only as told by your doctor. These include: ?Antibiotics. ?Pain medicines. ?Fiber pills. ?Probiotics. ?Stool softeners. Do not drive or use heavy machinery while taking prescription pain medicine. If you were prescribed an antibiotic, take it as told. Do not stop taking it even if you feel better. General instructions Follow a diet as told by your doctor. When you feel better, your doctor may tell you to change your diet. You may need to eat a lot of fiber. Fiber makes it easier to poop (have bowel movements). Healthy foods with fiber include: ?Berries. ?Beans. ?Lentils. ?Green vegetables. Exercise 3 or more times a week. Aim for 30 minutes each time. Exercise enough to sweat and make your heart beat faster. Keep all follow-up visits as told. This is important. You may need to have an exam of the large intestine. This is called a colonoscopy. Contact a doctor if: Your pain does not get better. You have a hard time eating or drinking. You are not pooping like normal. Get help right away if: Your pain gets worse. Your problems do not get better. Your problems get worse very fast. You have a fever. You throw up (vomit) more than one time. You have poop that is: ?Bloody. ?Black. ?Tarry. Summary Diverticulitis is when small pockets in your large intestine (colon) get infected or swollen. Take medicines only as told by your doctor. Follow a diet as told by your doctor. This information is not intended to replace advice given to you by your health care provider. Make sure you discuss any questions you have with your health care provider. Document Released: 08/19/2008 Document Revised: 02/13/2018 Document Reviewed: 03/20/2017 [employer] Patient Education 2019 [employer]. Follow Up Care 09/23/2021 09:58:21 With:ELLIOTT GILLIS Address: [address] [place] [address] Internal Medicine [place] [phone] When:3-7 days Comments:please call clinic to make appointment with your PCP for hospital discharge followup. [facility] 09-28-2021 Discharge summary Date of Service 09/27/21 Discharge Diagnosis Sigmoid diverticulitis CBD and pancreatic duct dilation Resolved nausea/vomiting Resolved diarrhea COVID positive Hospital Course 56-year-old female with recent acute sigmoid diverticulitis on 09/07 presenting with continuous and worsening of lower abdominal pain, nausea, vomiting and constipation. In the ED, patient was febrile, tachycardic, with no leukocytosis. BMP was unremarkable and UA showed trace bacteriuria. CT abdomen showed a moderate diverticulitis without abscess or pneumoperitoneum and dilated common and pancreatic ducts. Patient got 1 L bolus of normal saline, analgesics and 1 dose of Cifran and Flagyl in ER. After admission to inpatient team, patient was started on rocephin and flagyl. For two consecutive nights, patient had diffuse and watery diarrhea. C. diff toxin was negative however clinical suspicion of c.diff infection was still high, so patient was given oral vancomycin. Surgery has examined the patient and recommend conservative management. MRCP was performed for analyzing the dilated common and pancreatic ducts. Result showed no choledocholithiasis, no cholecystitis, and low suspicion for pancreatic malignancy. Patient's LFT and alk phos levels are unremarkable and does not suggest any pancreatic malignancy. Patient is covid positive but does not have any shortness of breath, cough, or respiratory distress. Given patient's past history of smoking, HTN, and COPD, bebtelovimab was suggested as a treatment and patient declined. On the day of discharge, she was able to tolerate clear liquids diet. Her diarrhea has resolved. Patient is discharged with oral flagyl and Augmentin for 6 days to complete her medicine regiment for acute diverticulitis. She can advance diet and advance activity as tolerated. Allergies labetalol Procedures MRCP Consults Consult to Physician (Physician Consult) - Ordered -- 09/24/21 11:57:00 GOMEZ VIDAL NICHOLAS B MD, Routine, Acute sigmoid diverticulitis Imaging Results and Diagnostics MRI [facility] Result Date: September 26, 2021 Verified By: KENNETH CALDERON MD CLINICAL STATEMENT: IMPRESSION: Mild common bile duct dilatation without evidence of choledocholithiasis.Correlation with alkaline phosphatase is recommended with further evaluationwith ERCP as clinically indicated. Mild pericholecystic fluid, likely reactive. No secondary signs ofcholecystitis. Trace ascites, nonspecific and may be reactive. Trace bilateral pleural effusions, right more than left. I have personally reviewed the images of this examination and agree with theresident's findings and interpretation. US Abdomen Limited Result Date: September 23, 2021 Verified By: IDALMIS SO MD CLINICAL STATEMENT: IMPRESSION: Dilated common bile duct and pancreatic ducts, concerning for distalobstruction or sphincter dysfunction. Consider further evaluation with MRCPor ERCP. Nonshadowing subcentimeter echogenic focus along the dependent portion of thegallbladder, nonspecific, could relate to a tiny cholelithiasis, minimalsludge or polyp. I have personally reviewed the images of this examination and agree with the resident's findings and interpretation. XR Chest 1 View Result Date: September 23, 2021 Verified By: CASTRO PARMAR MD CLINICAL STATEMENT: IMPRESSION: No acute cardiopulmonary process. CT Abd/Pelvis w/ IV Contrast Only Result Date: September 23, 2021 Verified By: SYLWIA PALMER MD CLINICAL STATEMENT: IMPRESSION: 1. Moderate diverticulitis similar to the prior examination without evidenceof an abscess or pneumoperitoneum.2. Interval appearing mild ascites.3. Dilated common and pancreatic ducts. Correlate with alkaline phosphataselevels and ultrasound. Physical Exam Vitals and Measurements T: 36.8 C (Oral) TMIN: 36.8 C (Oral) TMAX: 37.3 C (Oral) HR: 65 RR: 18 BP: 139/70 SpO2: 93% Weight Dosing Weight: 61.4 kg (09/23/21) Dosing Weight: 61.4 kg (09/23/21) General Appearance: looks stated aged, no acute distress Head: Normocephalic, atraumatic EENT: No scleral icterus Neck: Supple, no masses Cardiac: RRR, normal S1, S2 Lungs: Equal air entry bilaterally, no wheezing Abdomen: No scars, distention, organomegaly. Normal active bowel sounds. No tenderness upon light palpation. No tenderness upon soft palpation. Tenderness in bilateral lower quadrants upon deep palpation. Negative Rovsing sign. No dullness to percussion, no jaundice. Musculoskeletal: Full ROM Neurological: Alert oriented x3, no neurological deficits Skin: No ulcers, rash Psychiatric: Normal affect, judgment and insight is normal Pending Labs and Studies none Code Status Code Status - Ordered -- 09/23/21 14:19:00 EDT, Full Code, Constant Order Admission Date 09/23/21 Discharge Date 09/27/21 Patient Instructions You were admitted to the hospital inpatient service for acute diverticulitis. You received treatment with IV fluids, antibiotics including rocephin and flagyl. You are being discharged home with oral antibiotics. Please follow the instructions for taking these medications. You can advance your diet as tolerated starting with clear liquids. There are no activity restrictions so proceed to advance activity as you tolerate. Medications New Prescription amoxicillin-clavulanate (amoxicillin-clavulanate 875 mg-125 mg oral tablet)1 tab(s) by mouth every 12 hours for 6 Days. Refills: 0. metroNIDAZOLE (metroNIDAZOLE 500 mg oral tablet)1 tab(s) by mouth every 8 hours for 6 Days. Refills: 0. Changed tiZANidine (tiZANidine 4 mg oral tablet)1 tab(s) by mouth four (4) times a day as needed Muscle spasm. Unchanged acetaminophen-diphenhydramine (Tylenol PM Extra Strength oral tablet)1 tab(s) by mouth daily at bedtime as needed Sleep / Insomnia. acetaminophen-hydrocodone (acetaminophen-hydrocodone 325 mg-7.5 mg oral tablet)1 tab(s) by mouth every 6 hours. hydrOXYzine (hydrOXYzine hydrochloride 25 mg oral tablet)1 tab(s) by mouth three (3) times a day as needed as needed for anxiety. ibuprofen (ibuprofen 600 mg oral tablet)1 tab(s) by mouth every 6 hours as needed as needed for pain. Refills: 1. Follow Up Follow Up with ELLIOTT GILLIS DO When Within 3-7 days Why: please call clinic to make appointment with your PCP for hospital discharge followup. Where: [address] [place] [address] [place] [address]- [phone] Follow Up Appointments No qualifying data available. Follow Up Labs/Studies Discharge Labs No Follow-up Labs Discharge Studies No Follow-up Studies Discharge Diet Discharge Diet - Ordered -- Type of Diet: Regular, Diet Restrictions: Low bulk, 09/27/21 15:11:00 EDT Discharge Activity Discharge Activity - Ordered -- Activity As Tolerated, 09/27/21 15:11:00 EDT Condition on Discharge Stable Discharge Disposition Home Digitally Signed by DILCIA MILLS MD on 09/27/2021 04:00 PM [facility] 09-28-2021 Note Discharge Instructions Thank you for allowing [facility] to assist you with your healthcare needs. The following is important discharge information regarding your hospital visit. Your Care Team ELLIOTT GILLIS DO Your Diagnosis Abdominal pain What to do next Instructions From Your Doctor You were admitted to the hospital inpatient service for acute diverticulitis. You received treatment with IV fluids, antibiotics including rocephin and flagyl. You are being discharged home with oral antibiotics. Please follow the instructions for taking these medications. You can advance your diet as tolerated starting with clear liquids. There are no activity restrictions so proceed to advance activity as you tolerate. Follow Up Appointments Follow Up with ELLIOTT GILLIS DO When Within 3-7 days Why: please call clinic to make appointment with your PCP for hospital discharge followup. Where: [address] [place] [address] [place] [address]- [phone] The Following Activity and Diet Have Been Ordered for You Discharge Activity - Ordered -- Activity As Tolerated, 09/27/21 15:11:00 EDT Discharge Diet - Ordered -- Type of Diet: Regular, Diet Restrictions: Low bulk, 09/27/21 15:11:00 EDT The Following Equipment Has Been Ordered for You No qualifying data available. The Following Treatments Have Been Ordered for You Discharge Labs Discharge Outpatient Labwork - Ordered -- BMP, Mg, hypokalemia, hypomagnesemia, follow-up within: 1 week, Results Notify to: ELLIOTT GILLIS DO, 09/28/21 7:45:00 EDT Discharge Radiology No qualifying data available. Other Therapies No qualifying data available. Post Acute Orders No qualifying data available. Someone Will Contact You Regarding These Home Health Referrals No home referrals have been ordered for you. No one will call you. Allergies labetalol Medications Please ask your primary doctor or pharmacist before taking any other medication not listed, including over the counter drugs, herbal medications, vitamins and or supplements as they may interact with your home medications. What How Much When Instructions Last Dose New amoxicillin-clavulanate (amoxicillin-clavulanate 875 mg-125 mg oral tablet) 1 tab(s) by mouth Every 12 hours Duration: 6 Days Pickup at [facility] [address] New metroNIDAZOLE (metroNIDAZOLE 500 mg oral tablet) 1 tab(s) by mouth Every 8 hours Duration: 6 Days Pickup at [facility] [address] Changed tiZANidine (tiZANidine 4 mg oral tablet) 1 tab(s) by mouth Four (4) times a day as needed for Muscle spasm Unchanged acetaminophen-diphenhydramine (Tylenol PM Extra Strength oral tablet) 1 tab(s) by mouth Daily at bedtime as needed for Sleep / Insomnia Unchanged acetaminophen-hydrocodone (acetaminophen-hydrocodone 325 mg-7.5 mg oral tablet) 1 tab(s) by mouth Every 6 hours Unchanged hydrOXYzine (hydrOXYzine hydrochloride 25 mg oral tablet) 1 tab(s) by mouth Three (3) times a day as needed for as needed for anxiety Unchanged ibuprofen (ibuprofen 600 mg oral tablet) 1 tab(s) by mouth Every 6 hours as needed for as needed for pain Pharmacy Information [facility] [address] [place], [place] [phone] Please take this list to your next doctor s visit. Bring all medications you take, including over the counter medications, herbals and other supplements with you to your doctor s visit. Patients and families are reminded to discard old lists and to update any records with all medication providers or retail pharmacies. Medication Leaflets amoxicillin and clavulanate potassium (am OK i CHRISTO in KLAV ue NARENDRA ate tiff TAS ee um) Augmentin What is the most important information I should know about amoxicillin and clavulanate potassium? You should not use this medicine if you have severe kidney disease, if you have had liver problems or jaundice while taking amoxicillin and clavulanate potassium, or if you are allergic to any penicillin or cephalosporin antibiotic, such as Amoxil, Ceftin, Cefzil, Moxatag, Omnicef, and others. What is amoxicillin and clavulanate potassium? Amoxicillin is a penicillin antibiotic. Clavulanate potassium helps prevent certain bacteria from becoming resistant to amoxicillin. Amoxicillin and clavulanate potassium is a combination medicine used to treat many different infections caused by bacteria, such as sinusitis, pneumonia, ear infections, bronchitis, urinary tract infections, and infections of the skin. Amoxicillin and clavulanate potassium may also be used for purposes not listed in this medication guide. What should I discuss with my healthcare provider before taking amoxicillin and clavulanate potassium? You should not use this medicine if you are allergic to it, or if: you have severe kidney disease (or if you are on dialysis); you have had liver problems or jaundice while taking amoxicillin and clavulanate potassium; or you are allergic to any penicillin or cephalosporin antibiotic, such as Amoxil, Ceftin, Cefzil, Moxatag, Omnicef, and others. Tell your doctor if you have ever had: liver disease (hepatitis or jaundice); kidney disease; or mononucleosis. The liquid or chewable tablet may contain phenylalanine. Tell your doctor if you have phenylketonuria (PKU). Tell your doctor if you are or . Amoxicillin and clavulanate potassium can make control pills less effective. Ask your doctor about using a non-hormonal control (condom, diaphragm, cervical cap, or contraceptive sponge) to prevent . Do not give this medicine to a child without medical advice. How should I take amoxicillin and clavulanate potassium? Follow all directions on your prescription label and read all medication guides or instruction sheets. Use the medicine exactly as directed. Amoxicillin and clavulanate potassium may work best if you take it at the start of a meal. Take the medicine every 12 hours. Do not crush or chew the extended-release tablet. Swallow the pill whole, or break the pill in half and take both halves one at a time. Tell your doctor if you have trouble swallowing a whole or half pill. You must chew the chewable tablet before you swallow it. Shake the oral suspension (liquid) before you measure a dose. Use the dosing syringe provided, or use a medicine dose-measuring device (not a kitchen spoon). This medicine can affect the results of certain medical tests. Tell any doctor who treats you that you are using amoxicillin and clavulanate potassium. Use this medicine for the full prescribed length of time, even if your symptoms quickly improve. Skipping doses can increase your risk of infection that is resistant to medication. Amoxicillin and clavulanate potassium will not treat a viral infection such as the flu or a common cold. Store the tablets at room temperature away from moisture and heat. Store the liquid in the refrigerator. Throw away any unused liquid after 10 days. What happens if I miss a dose? Take the medicine as soon as you can, but skip the missed dose if it is almost time for your next dose. Do not take two doses at one time. What happens if I overdose? Seek emergency medical attention or call the Poison Help line at . Overdose can cause nausea, vomiting, stomach pain, diarrhea, skin rash, drowsiness, hyperactivity, and decreased urination. What should I avoid while taking amoxicillin and clavulanate potassium? Avoid taking this medicine together with or just after eating a high-fat meal. This will make it harder for your body to absorb the medication. Antibiotic medicines can cause diarrhea, which may be a sign of a new infection. If you have diarrhea that is watery or bloody, call your doctor before using anti-diarrhea medicine. What are the possible side effects of amoxicillin and clavulanate potassium? Get emergency medical help if you have signs of an allergic reaction (hives, difficult breathing, swelling in your face or throat) or a severe skin reaction (fever, sore throat, burning eyes, skin pain, red or purple skin rash with blistering and peeling). Call your doctor at once if you have: severe stomach pain, diarrhea that is watery or bloody (even if it occurs months after your last dose); pale or yellowed skin, dark colored urine, fever, confusion or weakness; loss of appetite, upper stomach pain; little or no urination; or easy bruising or bleeding. Common side effects may include: nausea, vomiting; diarrhea; rash, itching; vaginal itching or discharge; or diaper rash. This is not a complete list of side effects and others may occur. Call your doctor for medical advice about side effects. You may report side effects to FDA at 0-554-DFN-3856. What other drugs will affect amoxicillin and clavulanate potassium? Tell your doctor about all your other medicines, especially: allopurinol; probenecid; or a blood thinner--warfarin, Coumadin, Jantoven. This list is not complete. Other drugs may affect amoxicillin and clavulanate potassium, including prescription and etxf-lav-wrhiyjf medicines, vitamins, and herbal products. Not all possible drug interactions are listed here. Where can I get more information? Your pharmacist can provide more information about amoxicillin and clavulanate potassium. Remember, keep this and all other medicines out of the reach of children, never share your medicines with others, and use this medication only for the indication prescribed. Every effort has been made to ensure that the information provided by [employer]') is accurate, up-to-date, and complete, but no guarantee is made to that effect. Drug information contained herein may be time sensitive. [employer] information has been compiled for use by healthcare practitioners and consumers in the [place] and therefore [employer] does not warrant that uses outside of the [place] are appropriate, unless specifically indicated otherwise. [employer] drug information does not endorse drugs, diagnose patients or recommend therapy. [employer] drug information is an informational resource designed to assist licensed healthcare practitioners in caring for their patients and/or to serve consumers viewing this service as a supplement to, and not a substitute for, the expertise, skill, knowledge and judgment of healthcare practitioners. The absence of a warning for a given drug or drug combination in no way should be construed to indicate that the drug or drug combination is safe, effective or appropriate for any given patient. [employer] does not assume any responsibility for any aspect of healthcare administered with the aid of information [employer] provides. The information contained herein is not intended to cover all possible uses, directions, precautions, warnings, drug interactions, allergic reactions, or adverse effects. If you have questions about the drugs you are taking, check with your doctor, nurse or pharmacist. Copyright 7300-2882 [employer]. Version: 12.. Revision Date: 05/10/2019. metronidazole (oral/injection) (me balbir lozano) FIRST Metronidazole, Flagyl What is the most important information I should know about metronidazole? Do not drink alcohol or consume foods or medicines that contain propylene glycol while you are taking metronidazole and for at least 3 days after you stop taking it. Metronidazole has caused cancer in animal studies. However, it is not known whether this would occur in humans. Ask your doctor about your risk. What is metronidazole? Metronidazole is an antibiotic that is used to treat bacterial infections of the vagina, stomach, liver, skin, joints, brain and spinal cord, lungs, heart, or bloodstream. Metronidazole is also used to treat trichomoniasis, a sexually transmitted disease caused by a parasite. Usually both sexual partners are treated at the same time, even if one has no symptoms. Do not use metronidazole to treat any condition that has not been checked by your doctor. Metronidazole may also be used for purposes not listed in this medication guide. What should I discuss with my healthcare provider before using metronidazole? You should not use this medicine if you are allergic to metronidazole, secnidazole, or tinidazole, or if: you drank alcohol in the past 3 days; you consumed foods or medicines that contain propylene glycol in the past 3 days; or you took disulfiram (Antabuse) within the past 14 days. May harm an unborn baby. Do not use metronidazole to treat trichomoniasis during the first trimester of . Tell your doctor if you become . Not all uses of metronidazole are approved for treating children and teenagers. Metronidazole is not approved to treat vaginal infections in girls who have not begun having menstrual periods. Tell your doctor if you have ever had: liver disease; kidney disease (or if you are on dialysis); a heart rhythm disorder; a stomach or intestinal disease such as Crohn's disease; a blood cell disorder such as anemia (lack of red blood cells) or low white blood cell (WBC) counts; a fungal infection anywhere in your body; or a nerve disorder. Metronidazole has caused cancer in animal studies. However, it is not known whether this would occur in humans. Ask your doctor about your risk. You should not breastfeed within 24 hours after using metronidazole. If you use a breast pump during this time, throw out the milk and do not feed it to your baby. How should I use metronidazole? Follow all directions on your prescription label and read all medication guides or instruction sheets. Use the medicine exactly as directed. Metronidazole oral is taken by mouth. Metronidazole injection is given as an infusion into a vein. A healthcare provider will give you this injection if you are unable to take the medicine by mouth. Shake the oral suspension (liquid). Measure a dose with the supplied measuring device (not a kitchen spoon). Swallow the extended-release tablet whole and do not crush, chew, or break it. If you are treating a vaginal infection, your sexual partner may also need to take metronidazole so you don't become reinfected. Metronidazole is usually given for up to 10 days in a row. You may need to repeat this dosage several weeks later. Keep using this medicine even if your symptoms quickly improve. Skipping doses could make your infection resistant to medication. Metronidazole will not treat a viral infection (flu or a common cold). Metronidazole will not treat a vaginal yeast infection. You may even develop a new vaginal yeast infection, which may need to be treated with antifungal medication. Tell your doctor if you have symptoms such as itching or discharge during or after treatment with metronidazole. Do not share this medicine with another person, even if they have the same symptoms you have. This medicine can affect the results of certain medical tests. Tell any doctor who treats you that you are using metronidazole. Store at room temperature away from moisture and heat. What happens if I miss a dose? Take the medicine as soon as you can, but skip the missed dose if it is almost time for your next dose. Do not take two doses at one time. What happens if I overdose? Seek emergency medical attention or call the Poison Help line at . Overdose symptoms may include nausea, vomiting, numbness, tingling, or problems with balance or muscle movement. What should I avoid while using metronidazole? While taking metronidazole and for 3 days after your last dose: Do not drink alcohol or consume foods, medicines, or other products that contain alcohol or propylene glycol. You may have unpleasant effects such as headaches, nausea, vomiting, stomach cramps, and warmth or tingling under your skin. What are the possible side effects of metronidazole? Get emergency medical help if you have signs of an allergic reaction (hives, itching, warmth or tingling; fever, joint pain; dry mouth, dry vagina; stuffy nose, difficult breathing, swelling in your face or throat) or a severe skin reaction (fever, sore throat, burning eyes, skin pain, red or purple skin rash with blistering and peeling). Call your doctor at once if you have: new or worsening symptoms of infection; painful or difficult urination; confusion; a light-headed feeling (like you might pass out); vaginal itching or discharge; or blisters or ulcers in your mouth, red or swollen gums, trouble swallowing. Stop taking the medicine and call your doctor right away if you have neurologic side effects (more likely to occur while taking metronidazole salvage determiner): numbness, tingling, or burning pain in your hands or feet; vision problems, pain behind your eyes, seeing flashes of light; muscle weakness, problems with speech or coordination; trouble speaking or understanding what is said to you; a seizure; or fever, neck stiffness, and increased sensitivity to light. Metronidazole can cause life-threatening liver problems in people with Cockayne syndrome. If you have this condition, stop taking metronidazole and contact your doctor if you have signs of liver failure--nausea, stomach pain (upper right side), dark urine, saeed-colored stools, or jaundice (yellowing of the skin or eyes). Side effects may be more likely in older adults. Common side effects may include: depression, trouble sleeping, feeling irritable; headache, dizziness, weakness; nausea, vomiting, loss of appetite, stomach pain; diarrhea, constipation; unpleasant metallic taste; rash, itching; vaginal itching or discharge, pain during sex; mouth sores; or swollen, red, or 'hairy' tongue. This is not a complete list of side effects and others may occur. Call your doctor for medical advice about side effects. You may report side effects to FDA at 5-740-NLL-0250. What other drugs will affect metronidazole? Sometimes it is not safe to use certain medicines at the same time. Some drugs can affect your blood levels of other drugs you use, which may increase side effects or make the medicines less effective. Tell your doctor about all your current medicines. Many drugs can affect metronidazole, especially: an antidepressant; asthma medication; busulfan or other cancer medicine; heart or blood pressure medication; lithium or other antipsychotic medicine; medicine to treat malaria, HIV, or other infection; or a blood thinner--warfarin, Coumadin, Jantoven. This list is not complete and many other drugs may affect metronidazole. This includes prescription and duit-fai-bcaofsb medicines, vitamins, and herbal products. Not all possible drug interactions are listed here. Where can I get more information? Your pharmacist can provide more information about metronidazole. Remember, keep this and all other medicines out of the reach of children, never share your medicines with others, and use this medication only for the indication prescribed. Every effort has been made to ensure that the information provided by [employer]') is accurate, up-to-date, and complete, but no guarantee is made to that effect. Drug information contained herein may be time sensitive. [employer] information has been compiled for use by healthcare practitioners and consumers in the [place] and therefore [employer] does not warrant that uses outside of the [place] are appropriate, unless specifically indicated otherwise. [employer] drug information does not endorse drugs, diagnose patients or recommend therapy. [employer] drug information is an informational resource designed to assist licensed healthcare practitioners in caring for their patients and/or to serve consumers viewing this service as a supplement to, and not a substitute for, the expertise, skill, knowledge and judgment of healthcare practitioners. The absence of a warning for a given drug or drug combination in no way should be construed to indicate that the drug or drug combination is safe, effective or appropriate for any given patient. [employer] does not assume any responsibility for any aspect of healthcare administered with the aid of information [employer] provides. The information contained herein is not intended to cover all possible uses, directions, precautions, warnings, drug interactions, allergic reactions, or adverse effects. If you have questions about the drugs you are taking, check with your doctor, nurse or pharmacist. Copyright 9846-3535 [employer]. Version: 15.. Revision Date: 11/23/2020. Education Materials Diverticulitis Diverticulitis is when small pockets in your large intestine (colon) get infected or swollen. This causes stomach pain and watery poop (diarrhea). These pouches are called diverticula. They form in people who have a condition called diverticulosis. Follow these instructions at home: Medicines Take xtab-wkn-wfcpusk and prescription medicines only as told by your doctor. These include: ? Antibiotics. ? Pain medicines. ? Fiber pills. ? Probiotics. ? Stool softeners. Do not drive or use heavy machinery while taking prescription pain medicine. If you were prescribed an antibiotic, take it as told. Do not stop taking it even if you feel better. General instructions Follow a diet as told by your doctor. When you feel better, your doctor may tell you to change your diet. You may need to eat a lot of fiber. Fiber makes it easier to poop (have bowel movements). Healthy foods with fiber include: ? Berries. ? Beans. ? Lentils. ? Green vegetables. Exercise 3 or more times a week. Aim for 30 minutes each time. Exercise enough to sweat and make your heart beat faster. Keep all follow-up visits as told. This is important. You may need to have an exam of the large intestine. This is called a colonoscopy. Contact a doctor if: Your pain does not get better. You have a hard time eating or drinking. You are not pooping like normal. Get help right away if: Your pain gets worse. Your problems do not get better. Your problems get worse very fast. You have a fever. You throw up (vomit) more than one time. You have poop that is: ? Bloody. ? Black. ? Tarry. Summary Diverticulitis is when small pockets in your large intestine (colon) get infected or swollen. Take medicines only as told by your doctor. Follow a diet as told by your doctor. This information is not intended to replace advice given to you by your health care provider. Make sure you discuss any questions you have with your health care provider. Document Released: 08/19/2008 Document Revised: 02/13/2018 Document Reviewed: 03/20/2017 [employer] Patient Education 2020 [employer]. Additional Information VACCINATE! IT SAVES LIVES! Members of the community who have not yet received the COVID-19 vaccine and would like to receive it can visit one of [facility] vaccine clinics. There are many vaccine clinic locations within the [facility]. For locations and available times, please visit [email or web address] It is important to note that some COVID mobile vaccine clinics are held outdoors and may be canceled in rainy or stormy conditions. To learn more about pediatric vaccinations (ages 5-11), we invite you to visit the [facility] webpage. [email or web address] To learn more about the COVID-19 vaccine, we invite you to visit the [facility] website for a list of frequently asked questions. [email or web address]/Patient [email or web address]-[email or web address] ently_[email or web address].pdf [facility] Patient Portal Access Instructions: Stay connected with your healthcare team and access your personal medical information anytime with the [facility] Patient Portal.If you would like a full copy of your medical records, please contact the [facility] Medical Records Department, Friday through Friday between 8a.m. and 4:30p.m. Please follow the directions below to access the portal: 1.Access the email account you provided upon registration to the [facility].2.Look for an invitation email from [facility].3.Open the email and access the invitation link: Accept Invitation to [facility]4.Fill in the required ruiz to create your account. Sign into [email or web address] with your username and password that you created in the above steps to stay up to date. You can then view a summary of results, a summary of your visits, and the ability to download your summaries to your computer or send the information securely to a physician. Remember that your healthcare information is confidential, so carefully consider who you will allow to register on the [facility] Patient Portal for access to your information. You can also access the [facility] Patient Portal on the [employer] anup. Simply click on Health Records under Health Data and then click on the [employer] logo. HOW TO SAFELY DISPOSE OF PRESCRIPTION MEDICATIONS Please use one of the following methods to safely dispose of your unused medications. 1.Use a drug disposal kit: the drug disposal pouch allows you to safely discard your old and unused drugs. Ask your nurse to give you one when you are discharged.2.Visit a local take-back location: Many local pharmacies and police departments have programs that collect old and unwanted prescription drugs. Call your local pharmacy or go to http://bit.[employer]/3K6Lq4y to find one close to you.3.Make use of household items: Use cat litter or old coffee grounds to dispose medications if other options are not available. Mix your drugs with these household products, seal them in an airtight container and throw it into the garbage. Call [facility]: [phone] to be sure your drugs can be disposed of in this way. Some medicines may require a different approach.4.Never flush your medications down the toilet. IF YOU HAVE BEEN PRESCRIBED AN OPIOID FOR PAIN If you have been prescribed an opioid (such as hydrocodone, oxycodone or morphine), it is critical to understand the possible side effects and risks of opioid pain medications. Even when taken as directed, opioids can have several side effects including: Tolerance, meaning you might need to take more of a medication for the same pain relief. Nausea, vomiting and/or constipation. Sleepiness, dizziness, dry mouth, confusion, depression or itching. Physical dependence, meaning you have withdrawal symptoms when a medication is stopped, can develop within a few days. KNOW YOUR RESPONSIBILITIES It is important to know exactly how much and how often to take the opioid pain medications you are prescribed. Never take opioids in higher amounts or more often than prescribed. Do not combine opioids with alcohol or other drugs that cause drowsiness, such as benzodiazepines, also known as benzos, including diazepam and alprazolam, muscle relaxants or sleep aids. Never sell or share prescription opioids. This is illegal. Store opioids in a secure place and out of reach of others (including children, family, friends and visitors). The last page of this document has been signed and retained as a CHART COPY. Signatures Patient Education Materials Diverticulitis, Csar-yj-Zuqr Medication Leaflets amoxicillin and clavulanate potassium, metronidazole (oral/injection) My discharge plan and instructions have been reviewed and explained to me and I,ARLENE ELIZABETH understand my current condition and have read and understand these discharge instructions. I have received a written copy of the plan/instructions. If I have questions, I am aware that I should contact my doctor. Patient/Stone Mason Signature: Date/Time: Relationship to Patient: ___ Witness Name/Signature: Date/Time: [facility] 09-27-2021 Discharge summary Date of Service 09/27/21 Discharge Diagnosis Sigmoid diverticulitis CBD and pancreatic duct dilation Resolved nausea/vomiting Resolved diarrhea COVID positive Hospital Course 56-year-old female with recent acute sigmoid diverticulitis on 09/07 presenting with continuous and worsening of lower abdominal pain, nausea, vomiting and constipation. In the ED, patient was febrile, tachycardic, with no leukocytosis. BMP was unremarkable and UA showed trace bacteriuria. CT abdomen showed a moderate diverticulitis without abscess or pneumoperitoneum and dilated common and pancreatic ducts. Patient got 1 L bolus of normal saline, analgesics and 1 dose of Cifran and Flagyl in ER. After admission to inpatient team, patient was started on rocephin and flagyl. For two consecutive nights, patient had diffuse and watery diarrhea. C. diff toxin was negative however clinical suspicion of c.diff infection was still high, so patient was given oral vancomycin. Surgery has examined the patient and recommend conservative management. MRCP was performed for analyzing the dilated common and pancreatic ducts. Result showed no choledocholithiasis, no cholecystitis, and low suspicion for pancreatic malignancy. Patient's LFT and alk phos levels are unremarkable and does not suggest any pancreatic malignancy. Patient is covid positive but does not have any shortness of breath, cough, or respiratory distress. Given patient's past history of smoking, HTN, and COPD, bebtelovimab was suggested as a treatment and patient declined. On the day of discharge, she was able to tolerate clear liquids diet. Her diarrhea has resolved. Patient is discharged with oral flagyl and Augmentin for 6 days to complete her medicine regiment for acute diverticulitis. She can advance diet and advance activity as tolerated. Allergies labetalol Procedures MRCP Consults Consult to Physician (Physician Consult) - Ordered -- 09/24/21 11:57:00 EDT, CASTRO DYER MD, Routine, Acute sigmoid diverticulitis Imaging Results and Diagnostics MRI MRPC Result Date: September 26, 2021 Verified By: KENNETH CALDERON MD CLINICAL STATEMENT: IMPRESSION: Mild common bile duct dilatation without evidence of choledocholithiasis.Correlation with alkaline phosphatase is recommended with further evaluationwith ERCP as clinically indicated. Mild pericholecystic fluid, likely reactive. No secondary signs ofcholecystitis. Trace ascites, nonspecific and may be reactive. Trace bilateral pleural effusions, right more than left. I have personally reviewed the images of this examination and agree with theresident's findings and interpretation. US Abdomen Limited Result Date: September 23, 2021 Verified By: IDALMIS SO MD CLINICAL STATEMENT: IMPRESSION: Dilated common bile duct and pancreatic ducts, concerning for distalobstruction or sphincter dysfunction. Consider further evaluation with MRCPor ERCP. Nonshadowing subcentimeter echogenic focus along the dependent portion of thegallbladder, nonspecific, could relate to a tiny cholelithiasis, minimalsludge or polyp. I have personally reviewed the images of this examination and agree with the resident's findings and interpretation. XR Chest 1 View Result Date: September 23, 2021 Verified By: CASTRO PARMAR MD CLINICAL STATEMENT: IMPRESSION: No acute cardiopulmonary process. CT Abd/Pelvis w/ IV Contrast Only Result Date: September 23, 2021 Verified By: SYLWIA PALMER MD CLINICAL STATEMENT: IMPRESSION: 1. Moderate diverticulitis similar to the prior examination without evidenceof an abscess or pneumoperitoneum.2. Interval appearing mild ascites.3. Dilated common and pancreatic ducts. Correlate with alkaline phosphataselevels and ultrasound. Physical Exam Vitals and Measurements T: 36.8 C (Oral) TMIN: 36.8 C (Oral) TMAX: 37.3 C (Oral) HR: 65 RR: 18 BP: 139/70 SpO2: 93% Weight Dosing Weight: 61.4 kg (09/23/21) Dosing Weight: 61.4 kg (09/23/21) General Appearance: looks stated aged, no acute distress Head: Normocephalic, atraumatic EENT: No scleral icterus Neck: Supple, no masses Cardiac: RRR, normal S1, S2 Lungs: Equal air entry bilaterally, no wheezing Abdomen: No scars, distention, organomegaly. Normal active bowel sounds. No tenderness upon light palpation. No tenderness upon soft palpation. Tenderness in bilateral lower quadrants upon deep palpation. Negative Rovsing sign. No dullness to percussion, no jaundice. Musculoskeletal: Full ROM Neurological: Alert oriented x3, no neurological deficits Skin: No ulcers, rash Psychiatric: Normal affect, judgment and insight is normal Pending Labs and Studies none Code Status Code Status - Ordered -- 09/23/21 14:19:00 EDT, Full Code, Constant Order Admission Date 09/23/21 Discharge Date 09/27/21 Patient Instructions You were admitted to the hospital inpatient service for acute diverticulitis. You received treatment with IV fluids, antibiotics including rocephin and flagyl. You are being discharged home with oral antibiotics. Please follow the instructions for taking these medications. You can advance your diet as tolerated starting with clear liquids. There are no activity restrictions so proceed to advance activity as you tolerate. Medications New Prescription amoxicillin-clavulanate (amoxicillin-clavulanate 875 mg-125 mg oral tablet)1 tab(s) by mouth every 12 hours for 6 Days. Refills: 0. metroNIDAZOLE (metroNIDAZOLE 500 mg oral tablet)1 tab(s) by mouth every 8 hours for 6 Days. Refills: 0. Changed tiZANidine (tiZANidine 4 mg oral tablet)1 tab(s) by mouth four (4) times a day as needed Muscle spasm. Unchanged acetaminophen-diphenhydramine (Tylenol PM Extra Strength oral tablet)1 tab(s) by mouth daily at bedtime as needed Sleep / Insomnia. acetaminophen-hydrocodone (acetaminophen-hydrocodone 325 mg-7.5 mg oral tablet)1 tab(s) by mouth every 6 hours. hydrOXYzine (hydrOXYzine hydrochloride 25 mg oral tablet)1 tab(s) by mouth three (3) times a day as needed as needed for anxiety. ibuprofen (ibuprofen 600 mg oral tablet)1 tab(s) by mouth every 6 hours as needed as needed for pain. Refills: 1. Follow Up Follow Up with ELLIOTT GILLIS DO When Within 3-7 days Why: please call clinic to make appointment with your PCP for hospital discharge followup. Where: [address] [place] [address] [place] [address]- [phone] Follow Up Appointments No qualifying data available. Follow Up Labs/Studies Discharge Labs No Follow-up Labs Discharge Studies No Follow-up Studies Discharge Diet Discharge Diet - Ordered -- Type of Diet: Regular, Diet Restrictions: Low bulk, 09/27/21 15:11:00 EDT Discharge Activity Discharge Activity - Ordered -- Activity As Tolerated, 09/27/21 15:11:00 EDT Condition on Discharge Stable Discharge Disposition Home Digitally Signed by DILCIA MILLS MD on 09/27/2021 04:00 PM [facility] 09-27-2021 Note Date of Service 09/27/2021 MEDICAL TEACHING SERVICE ATTENDING PHYSICIAN NOTE I was present for, and personally supervised, the moreira components of the patient's evaluation and management by the [facility] house staff today. I have examined the patient and reviewed all diagnostic data. I will review the note of the resident. It will document the interval history obtained, examination performed, and diagnostic testing results compiled by him/her. Unit/floor time personally spent by the attending physician, if applicable (>50% counseling and/or coordination of care): Additional comments, if any: tolerating po, abd pain improved. MRCP ok, patient medically stable for DC home today. Finish ATB as po. D/W general surgery as well. Please see DC summary for full details. COVID-19 infection nearly asymptomatic. She declined monoclonal antibodies as ordered. F/U with PCP in [facility]. Time spent > 32 minutes. Digitally Signed by BRITTON DESAI MD on 09/27/2021 02:51 PM [facility] 09-27-2021 Surgery Hospital Progress note Date of Service 09/27/2021 Chief Complaint Abdominal pain, nausea and vomiting. Subjective This is a shared split visit between myself and Dr. Dyer. On examination patient is seen resting supine in bed, does not appear to be in any type of distress. Patient reports that she is feeling slightly better. Patient reports nausea but no vomiting at this time. Patient reports that she is tolerating her clear liquid diet however she does not want to force it due to the nausea. Objective Vitals and Measurements T: 36.8 C (Oral) TMIN: 36.8 C (Oral) TMAX: 37.3 C (Oral) HR: 65 RR: 18 BP: 130/73 SpO2: 93% Intake and Output 7AM Yesterday to 7AM Today Intake and Output (Last 24 hours) Intake Output Stool Count 0.00 Emesis Count 1.00 Total Summary Total Intake 0.00 Total Output 0.00 Fluid Balance 0.00 Physical Exam General: Awake and alert and in no apparent distress. Able to answer questions and speak in full sentences. Supine in bed. HEENT: Mucous membranes moist and pink. Sclerae anicteric. PERRLA. Lungs: Chest rise symmetrical. Respirations unlabored. Clear to auscultation bilaterally. Abdomen: Soft and slight tenderness to palpation. Nondistended. No guarding or rigidity. Bowel sounds 4 quadrants. Extremities: Freely moving. Skin: Normal color for ethnicity. No pallor or diaphoresis. No jaundice. Psychiatric: Calm and cooperative. Weight Dosing Weight: 61.4 kg (09/23/21) Dosing Weight: 61.4 kg (09/23/21) Medications Medications (16) Active Scheduled: (6) cefTRIAXone IVP syringe 2 gram(s) 20 mL, IV Push (INT), qDay famotidine 20 mg/2 mL vial 20 mg 2 mL, IV Push, qDay heparin 5,000 units/mL (1 mL) vial 5,000 unit(s) 1 mL, Subcutaneous, q8h metronidazole PMX 500 mg 100 mL, IV Piggyback, q8h potassium chloride in NS 60 mEq 500 mL, IV Piggyback, Once vancomycin 125 mg / 2.5 mL ORAL Syringe 125 mg 2.5 mL, Oral, q6h Continuous: (1) Lactated Ringers 1,000 mL 1,000 mL, Intravenous, 75 mL/hr PRN: (9) acetaminophen-HYDROcodone 325-5 mg tablet 2 tab(s), Oral, q6h diphenhyDRAMINE 50 mg/mL (1 mL) INJ 50 mg 1 mL, IV Push, Once epinephrine 1 mg/mL Solution AMP 0.3 mg 0.3 mL, Intramuscular, Once hydroxyzine hcl 25 mg tablet 25 mg 1 tab(s), Oral, TID morphine 2 mg/mL 1 mL syringe 2 mg 1 mL, IV Push, q3h morphine 4 mg/mL 1mL INJ 5 mg 1.25 mL, IV Push, q3h ondansetron 2 mg/ 1 mL 2 mL INJ 4 mg 2 mL, IV Push, q4h tiZANidine 4 mg tablet 4 mg 1 tab(s), Oral, QID trimethobenzamide 200 mg/2 mL Solution 200 mg 2 mL, Intramuscular, q6h Lab Results 09/26 21:36 Potassium Level: 3.4 L 09/26 05:26 WBC: 6.1 Hgb: 8.5 L Hct: 25.3 L Platelet: 141 L Neutrophil %: 81.6 H Glucose Level: 125 H Sodium Level: 145 Potassium Level: 2.8 L BUN: <5.0 L Creatinine Lvl (s): 0.42 L EKG No qualifying data available. Assessment/Plan This patient is a 56-year-old female admitted under the medical team for her sigmoid diverticulitis, intractable nausea and vomiting, hypokalemia, COVID-positive, anemia and SIRS on admission. General surgery has been following for the diverticulitis. Patient remains on IV antibiotics Rocephin, Flagyl and oral vancomycin. Patient underwent a MRCP on 09/26/2021 due to a dilated common bile duct and extreme abdominal pain. No evidence of cholecystitis or choledocholithiasis per the read of the radiologist. Patient remained stable from surgical standpoint. Vital signs and I/O have been reviewed. No morning laboratory data to review. Patient had no elevated white count yesterday. She remains afebrile with a 24-hour T-max of 37.3. Plan: -No surgical intervention at this time, with continue with conservative treatment at this time -Continue with serial abdominal examinations -Continue with IV antibiotics per the medical team -Continue with clear liquid diet and can advance as tolerated -Patient encouraged to get up and mobilize in room and sit in chair Please see Dr. Dyer addendum for full physical assessment and plan. Digitally Signed by TROY BLACK on 09/27/2021 09:59 AM [facility] 09-27-2021 Surgery Hospital Progress note Date of Service 09/27/2021 Chief Complaint Abdominal pain, nausea and vomiting. Subjective This is a shared split visit between myself and Dr. Dyer. On examination patient is seen resting supine in bed, does not appear to be in any type of distress. Patient reports that she is feeling slightly better. Patient reports nausea but no vomiting at this time. Patient reports that she is tolerating her clear liquid diet however she does not want to force it due to the nausea. Objective Vitals and Measurements T: 36.8 C (Oral) TMIN: 36.8 C (Oral) TMAX: 37.3 C (Oral) HR: 65 RR: 18 BP: 130/73 SpO2: 93% Intake and Output 7AM Yesterday to 7AM Today Intake and Output (Last 24 hours) Intake Output Stool Count 0.00 Emesis Count 1.00 Total Summary Total Intake 0.00 Total Output 0.00 Fluid Balance 0.00 Physical Exam General: Awake and alert and in no apparent distress. Able to answer questions and speak in full sentences. Supine in bed. HEENT: Mucous membranes moist and pink. Sclerae anicteric. PERRLA. Lungs: Chest rise symmetrical. Respirations unlabored. Clear to auscultation bilaterally. Abdomen: Soft and slight tenderness to palpation. Nondistended. No guarding or rigidity. Bowel sounds 4 quadrants. Extremities: Freely moving. Skin: Normal color for ethnicity. No pallor or diaphoresis. No jaundice. Psychiatric: Calm and cooperative. Weight Dosing Weight: 61.4 kg (09/23/21) Dosing Weight: 61.4 kg (09/23/21) Medications Medications (16) Active Scheduled: (6) cefTRIAXone IVP syringe 2 gram(s) 20 mL, IV Push (INT), qDay famotidine 20 mg/2 mL vial 20 mg 2 mL, IV Push, qDay heparin 5,000 units/mL (1 mL) vial 5,000 unit(s) 1 mL, Subcutaneous, q8h metronidazole PMX 500 mg 100 mL, IV Piggyback, q8h potassium chloride in NS 60 mEq 500 mL, IV Piggyback, Once vancomycin 125 mg / 2.5 mL ORAL Syringe 125 mg 2.5 mL, Oral, q6h Continuous: (1) Lactated Ringers 1,000 mL 1,000 mL, Intravenous, 75 mL/hr PRN: (9) acetaminophen-HYDROcodone 325-5 mg tablet 2 tab(s), Oral, q6h diphenhyDRAMINE 50 mg/mL (1 mL) INJ 50 mg 1 mL, IV Push, Once epinephrine 1 mg/mL Solution AMP 0.3 mg 0.3 mL, Intramuscular, Once hydroxyzine hcl 25 mg tablet 25 mg 1 tab(s), Oral, TID morphine 2 mg/mL 1 mL syringe 2 mg 1 mL, IV Push, q3h morphine 4 mg/mL 1mL INJ 5 mg 1.25 mL, IV Push, q3h ondansetron 2 mg/ 1 mL 2 mL INJ 4 mg 2 mL, IV Push, q4h tiZANidine 4 mg tablet 4 mg 1 tab(s), Oral, QID trimethobenzamide 200 mg/2 mL Solution 200 mg 2 mL, Intramuscular, q6h Lab Results 09/26 21:36 Potassium Level: 3.4 L 09/26 05:26 WBC: 6.1 Hgb: 8.5 L Hct: 25.3 L Platelet: 141 L Neutrophil %: 81.6 H Glucose Level: 125 H Sodium Level: 145 Potassium Level: 2.8 L BUN: <5.0 L Creatinine Lvl (s): 0.42 L EKG No qualifying data available. Assessment/Plan This patient is a 56-year-old female admitted under the medical team for her sigmoid diverticulitis, intractable nausea and vomiting, hypokalemia, COVID-positive, anemia and SIRS on admission. General surgery has been following for the diverticulitis. Patient remains on IV antibiotics Rocephin, Flagyl and oral vancomycin. Patient underwent a MRCP on 09/26/2021 due to a dilated common bile duct and extreme abdominal pain. No evidence of cholecystitis or choledocholithiasis per the read of the radiologist. Patient remained stable from surgical standpoint. Vital signs and I/O have been reviewed. No morning laboratory data to review. Patient had no elevated white count yesterday. She remains afebrile with a 24-hour T-max of 37.3. Plan: -No surgical intervention at this time, with continue with conservative treatment at this time -Continue with serial abdominal examinations -Continue with IV antibiotics per the medical team -Continue with clear liquid diet and can advance as tolerated -Patient encouraged to get up and mobilize in room and sit in chair Please see Dr. Dyer addendum for full physical assessment and plan. Digitally Signed by TROY BLACK on 09/27/2021 09:59 AM [facility] 09-27-2021 Note Date of Service 09/26/2021 Chief Complaint 56-year-old female with recent medical history of acute diverticulitis presenting with lower abdominal pain Subjective Patient's pain is deescalating compared to yesterday. She describes the pain as constant, diffuse, located in lower quadrants, nonradiating, stinging and rates it 6 out of 10. Movement aggravates the pain. Rest alleviates the pain. She is feeling nauseous and vomited clear liquids. She denies any hematemesis. Patient has 1 episode of diarrhea every other hour. She describes the stool as green, watery, [id number]. She denies any hematochezia or melena. During the night, she noticed one episode of spotting on the toilet paper when she wipes after a bowel movement. She denies any shortness of breath, cough, sputum production. Patient mentioned she was diagnosed with stomach ulcer at a [facility] in [place] 30 years ago. Patient does not remember the reason for that hospital visit. She does not remember more details regarding this diagnosis and she denies ever getting any scope or GI procedure. She did not follow up regarding this diagnosis. Objective Vitals and Measurements T: 37.0 C (Oral) TMIN: 36.7 C (Oral) TMAX: 37.2 C (Oral) HR: 78(Monitored) RR: 18 BP: 132/76 SpO2: 95% Intake and Output 7AM Yesterday to 7AM Today Intake and Output (Last 24 hours) Intake Administration Information 1000.00 Oral Intake 20.00 Output Stool Count 1.00 Urine Count 2.00 Emesis Count 0.00 Total Summary Total Intake 1020.00 Total Output 0.00 Fluid Balance 1020.00 Physical Exam General Appearance: looks stated aged, no acute distress Head: Normocephalic, atraumatic EENT: No scleral icterus Neck: Supple, no masses Cardiac: RRR, normal S1, S2 Lungs: Equal air entry bilaterally, no wheezing Abdomen: No scars, distention, organomegaly. Normal active bowel sounds. No tenderness upon light palpation. Tenderness in bilateral lower quadrants upon deep palpation. Negative Rovsing sign. No dullness to percussion or jaundice. Musculoskeletal: Full ROM Neurological: Alert oriented x3, no neurological deficits Skin: No ulcers, rash Psychiatric: Normal affect, judgment and insight is normal Weight Dosing Weight: 61.4 kg (09/23/21) Dosing Weight: 61.4 kg (09/23/21) Medications Medications (15) Active Scheduled: (6) cefTRIAXone IVP syringe 2 gram(s) 20 mL, IV Push (INT), qDay famotidine 20 mg/2 mL vial 20 mg 2 mL, IV Push, qDay heparin 5,000 units/mL (1 mL) vial 5,000 unit(s) 1 mL, Subcutaneous, q8h metronidazole PMX 500 mg 100 mL, IV Piggyback, q8h potassium acetate 40 mEq 20 mL, IV Piggyback, Once vancomycin 125 mg / 2.5 mL ORAL Syringe 125 mg 2.5 mL, Oral, q6h Continuous: (1) Lactated Ringers 1,000 mL 1,000 mL, Intravenous, 75 mL/hr PRN: (8) acetaminophen-HYDROcodone 325-5 mg tablet 2 tab(s), Oral, q6h diphenhyDRAMINE 50 mg/mL (1 mL) INJ 50 mg 1 mL, IV Push, Once epinephrine 1 mg/mL Solution AMP 0.3 mg 0.3 mL, Intramuscular, Once hydroxyzine hcl 25 mg tablet 25 mg 1 tab(s), Oral, TID morphine 2 mg/mL 1 mL syringe 2 mg 1 mL, IV Push, q3h morphine 4 mg/mL 1mL INJ 5 mg 1.25 mL, IV Push, q3h ondansetron 2 mg/ 1 mL 2 mL INJ 4 mg 2 mL, IV Push, q6h tiZANidine 4 mg tablet 4 mg 1 tab(s), Oral, QID Lab Results 09/26 05:26 WBC: 6.1 Hgb: 8.5 L Hct: 25.3 L Platelet: 141 L Neutrophil %: 81.6 H Glucose Level: 125 H Sodium Level: 145 Potassium Level: 2.8 L BUN: <5.0 L Creatinine Lvl (s): 0.42 L 09/25 05:22 WBC: 7.8 Hgb: 8.9 L Hct: 26.3 L Platelet: 146 L Neutrophil %: 86.5 H Glucose Level: 106 Sodium Level: 145 Potassium Level: 3.5 BUN: 9.0 Creatinine Lvl (s): 0.44 L Imaging Results and Diagnostics MRI [facility] Result Date: September 26, 2021 Verified By: KENNETH CALDERON MD CLINICAL STATEMENT: IMPRESSION: Mild common bile duct dilatation without evidence of choledocholithiasis.Correlation with alkaline phosphatase is recommended with further evaluation with ERCP as clinically indicated. Mild pericholecystic fluid, likely reactive. No secondary signs of cholecystitis. Trace ascites, nonspecific and may be reactive. Trace bilateral pleural effusions, right more than left. I have personally reviewed the images of this examination and agree with the resident's findings and interpretation. Assessment/Plan This is a 56-year-old female with a PMHx of ?peptic ulcer disease who presented to the emergency department due to worsening lower abdominal pain, nausea and vomiting for one week. Of note, the patient was seen on 08/19/[address] planes and had a CT abdomen done at the time without contrast did reveal moderate diverticulitis of the segment portion of the colon with no abscess or free air. Discharged on Cipro blocks ascent and Flagyl to be taken as outpatient orally. However the patient's symptoms did not resolve so she returned to the emergency department for further evaluation and 09/23/21. Problems: Sigmoid diverticulitis CBD and pancreatic duct dilation intractable nausea/vomiting hypokalemia COVID posiitive SIRS positive on admission Normocytic anemia Abdominal pain and diarrhea secondary to diverticulitis. CT abdomen done showed moderate diverticulitis that was similar to prior examination without any abscess. Gumaro Stage 0. -Advanced diet as tolerated to clear liquid -nursing staff, the patient has been parenting nausea and vomiting today, so will still continue IV LR@75 mL per hour until oral intake is appropriate -as per up-to-date, will continue Rocephin and Flagyl for approximately five days until inflammation subsides and then transition to oral antibiotics to complete a 10 to 14 days course total. Patient is currently on day three of antibiotic course. -surgery examined patient and agrees with antbiotic plan. They recommend conservative management given low suspicion for gallbladder pathology. -The patient is having bouts of uncomplicated diverticulitis with recurrence, elective surgery per new ACP guidelines is an option that can be discussed with the patient Intractable nausea and vomiting. CT and US shows 8 mm common bile duct dilation without any intrahepatic biliary ductal dilation and no evidence of political devices. Pancreatic duct was normal in caliber. Mild pericholecystic fluid which is likely reactive. Alkaline phosphatase was within normal limits. MRCP result showed no signs of pancreatic malignancy or choledocholithiasis. In rare cases diverticulitis can induce pancreatitis and can be shown with mild common bile duct and pancreatic debilitation however CT of the abdomen did not show any findings consistent with pancreatitis. Oral intake and prolonged starvation can sometimes seem benign dilation of common bile duct and patient's current dilation is borderline. Pancreatic neoplasm cannot be indefinitely ruled out as it was not well visualized however low suspicion given the patient denies any unintentional weight loss, does not appear jaundiced and does not complain of pale stool. Patient grew up in foster home and does not know any family history however the patient is at risk given her tobacco use history. -Abdominal pain and vomiting, can consider repeating abdominal imaging and ordering lipase -Zofran for nausea -endoscopic US as outpatient C. difficile PCR positive. Toxin A/B were negative. This likely represents colonization however given that the patient is having profuse diarrhea and is on Rocephin which can be associated with C. difficile, she is at high risk of developing C. difficile. -Continue oral vancomycin empirically Hypokalemia. With hyperkalemia suggestive of dehydration especially given that the tones were present in urine analysis and this is probably in the setting of G.I. loss. -Replete as needed -Mg level pending Asymptomatic COVID-19. Patient tested positive for COVID-19 09/23/21 denies any symptoms and is currently breathing comfortably on room air and does not have significant factors. -we did discuss the option of treatment with bebtolivumab however at this time the patient has declined -continue to monitor for symptoms Normocytic anemia. FOBT positive. Hemoglobin trending down from baseline of 11 to 8. It may represent dilution given that all three cell lines have trended downward. -Increase the risk of C. difficile, will start Pepcid 20 mg IV Q day to prevent stress ulcers especially given patients questionable history of peptic ulcer disease -avoid NSAIDs -will transfuse if hemoglobin drops < 7. we will trend closely -this time the patient is hemodynamically stable without any overt signs of bleeding however she should have an outpatient colonoscopy done as age-appropriate cancer screening DVT prophylaxis: SubQ heparin FULL CODE Digitally Signed by DILCIA MILLS MD on 09/26/2021 05:14 PM [facility] 09-26-2021 Note Date of Service 09/26/2021 Chief Complaint 56-year-old female with recent medical history of acute diverticulitis presenting with lower abdominal pain Subjective Patient's pain is deescalating compared to yesterday. She describes the pain as constant, diffuse, located in lower quadrants, nonradiating, stinging and rates it 6 out of 10. Movement aggravates the pain. Rest alleviates the pain. She is feeling nauseous and vomited clear liquids. She denies any hematemesis. Patient has 1 episode of diarrhea every other hour. She describes the stool as green, watery, [id number]. She denies any hematochezia or melena. During the night, she noticed one episode of spotting on the toilet paper when she wipes after a bowel movement. She denies any shortness of breath, cough, sputum production. Patient mentioned she was diagnosed with stomach ulcer at a [facility] in [place] 30 years ago. Patient does not remember the reason for that hospital visit. She does not remember more details regarding this diagnosis and she denies ever getting any scope or GI procedure. She did not follow up regarding this diagnosis. Objective Vitals and Measurements T: 37.0 C (Oral) TMIN: 36.7 C (Oral) TMAX: 37.2 C (Oral) HR: 78(Monitored) RR: 18 BP: 132/76 SpO2: 95% Intake and Output 7AM Yesterday to 7AM Today Intake and Output (Last 24 hours) Intake Administration Information 1000.00 Oral Intake 20.00 Output Stool Count 1.00 Urine Count 2.00 Emesis Count 0.00 Total Summary Total Intake 1020.00 Total Output 0.00 Fluid Balance 1020.00 Physical Exam General Appearance: looks stated aged, no acute distress Head: Normocephalic, atraumatic EENT: No scleral icterus Neck: Supple, no masses Cardiac: RRR, normal S1, S2 Lungs: Equal air entry bilaterally, no wheezing Abdomen: No scars, distention, organomegaly. Normal active bowel sounds. No tenderness upon light palpation. Tenderness in bilateral lower quadrants upon deep palpation. Negative Rovsing sign. No dullness to percussion or jaundice. Musculoskeletal: Full ROM Neurological: Alert oriented x3, no neurological deficits Skin: No ulcers, rash Psychiatric: Normal affect, judgment and insight is normal Weight Dosing Weight: 61.4 kg (09/23/21) Dosing Weight: 61.4 kg (09/23/21) Medications Medications (15) Active Scheduled: (6) cefTRIAXone IVP syringe 2 gram(s) 20 mL, IV Push (INT), qDay famotidine 20 mg/2 mL vial 20 mg 2 mL, IV Push, qDay heparin 5,000 units/mL (1 mL) vial 5,000 unit(s) 1 mL, Subcutaneous, q8h metronidazole PMX 500 mg 100 mL, IV Piggyback, q8h potassium acetate 40 mEq 20 mL, IV Piggyback, Once vancomycin 125 mg / 2.5 mL ORAL Syringe 125 mg 2.5 mL, Oral, q6h Continuous: (1) Lactated Ringers 1,000 mL 1,000 mL, Intravenous, 75 mL/hr PRN: (8) acetaminophen-HYDROcodone 325-5 mg tablet 2 tab(s), Oral, q6h diphenhyDRAMINE 50 mg/mL (1 mL) INJ 50 mg 1 mL, IV Push, Once epinephrine 1 mg/mL Solution AMP 0.3 mg 0.3 mL, Intramuscular, Once hydroxyzine hcl 25 mg tablet 25 mg 1 tab(s), Oral, TID morphine 2 mg/mL 1 mL syringe 2 mg 1 mL, IV Push, q3h morphine 4 mg/mL 1mL INJ 5 mg 1.25 mL, IV Push, q3h ondansetron 2 mg/ 1 mL 2 mL INJ 4 mg 2 mL, IV Push, q6h tiZANidine 4 mg tablet 4 mg 1 tab(s), Oral, QID Lab Results 09/26 05:26 WBC: 6.1 Hgb: 8.5 L Hct: 25.3 L Platelet: 141 L Neutrophil %: 81.6 H Glucose Level: 125 H Sodium Level: 145 Potassium Level: 2.8 L BUN: <5.0 L Creatinine Lvl (s): 0.42 L 09/25 05:22 WBC: 7.8 Hgb: 8.9 L Hct: 26.3 L Platelet: 146 L Neutrophil %: 86.5 H Glucose Level: 106 Sodium Level: 145 Potassium Level: 3.5 BUN: 9.0 Creatinine Lvl (s): 0.44 L Imaging Results and Diagnostics MRI [facility] Result Date: September 26, 2021 Verified By: KENNETH CALDERON MD CLINICAL STATEMENT: IMPRESSION: Mild common bile duct dilatation without evidence of choledocholithiasis.Correlation with alkaline phosphatase is recommended with further evaluation with ERCP as clinically indicated. Mild pericholecystic fluid, likely reactive. No secondary signs of cholecystitis. Trace ascites, nonspecific and may be reactive. Trace bilateral pleural effusions, right more than left. I have personally reviewed the images of this examination and agree with the resident's findings and interpretation. Assessment/Plan This is a 56-year-old female with a PMHx of ?peptic ulcer disease who presented to the emergency department due to worsening lower abdominal pain, nausea and vomiting for one week. Of note, the patient was seen on 08/19/2021 planes and had a [address] abdomen done at the time without contrast did reveal moderate diverticulitis of the segment portion of the colon with no abscess or free air. Discharged on Cipro blocks ascent and Flagyl to be taken as outpatient orally. However the patient's symptoms did not resolve so she returned to the emergency department for further evaluation and 09/23/21. Problems: Sigmoid diverticulitis CBD and pancreatic duct dilation intractable nausea/vomiting hypokalemia COVID posiitive SIRS positive on admission Normocytic anemia Abdominal pain and diarrhea secondary to diverticulitis. CT abdomen done showed moderate diverticulitis that was similar to prior examination without any abscess. Gumaro Stage 0. -Advanced diet as tolerated to clear liquid -nursing staff, the patient has been parenting nausea and vomiting today, so will still continue IV LR@75 mL per hour until oral intake is appropriate -as per up-to-date, will continue Rocephin and Flagyl for approximately five days until inflammation subsides and then transition to oral antibiotics to complete a 10 to 14 days course total. Patient is currently on day three of antibiotic course. -surgery examined patient and agrees with antbiotic plan. They recommend conservative management given low suspicion for gallbladder pathology. -The patient is having bouts of uncomplicated diverticulitis with recurrence, elective surgery per new ACP guidelines is an option that can be discussed with the patient Intractable nausea and vomiting. CT and US shows 8 mm common bile duct dilation without any intrahepatic biliary ductal dilation and no evidence of political devices. Pancreatic duct was normal in caliber. Mild pericholecystic fluid which is likely reactive. Alkaline phosphatase was within normal limits. MRCP result showed no signs of pancreatic malignancy or choledocholithiasis. In rare cases diverticulitis can induce pancreatitis and can be shown with mild common bile duct and pancreatic debilitation however CT of the abdomen did not show any findings consistent with pancreatitis. Oral intake and prolonged starvation can sometimes seem benign dilation of common bile duct and patient's current dilation is borderline. Pancreatic neoplasm cannot be indefinitely ruled out as it was not well visualized however low suspicion given the patient denies any unintentional weight loss, does not appear jaundiced and does not complain of pale stool. Patient grew up in foster home and does not know any family history however the patient is at risk given her tobacco use history. -Abdominal pain and vomiting, can consider repeating abdominal imaging and ordering lipase -Zofran for nausea -endoscopic US as outpatient C. difficile PCR positive. Toxin A/B were negative. This likely represents colonization however given that the patient is having profuse diarrhea and is on Rocephin which can be associated with C. difficile, she is at high risk of developing C. difficile. -Continue oral vancomycin empirically Hypokalemia. With hyperkalemia suggestive of dehydration especially given that the tones were present in urine analysis and this is probably in the setting of G.I. loss. -Replete as needed -Mg level pending Asymptomatic COVID-19. Patient tested positive for COVID-19 09/23/21 denies any symptoms and is currently breathing comfortably on room air and does not have significant factors. -we did discuss the option of treatment with bebtolivumab however at this time the patient has declined -continue to monitor for symptoms Normocytic anemia. FOBT positive. Hemoglobin trending down from baseline of 11 to 8. It may represent dilution given that all three cell lines have trended downward. -Increase the risk of C. difficile, will start Pepcid 20 mg IV Q day to prevent stress ulcers especially given patients questionable history of peptic ulcer disease -avoid NSAIDs -will transfuse if hemoglobin drops < 7. we will trend closely -this time the patient is hemodynamically stable without any overt signs of bleeding however she should have an outpatient colonoscopy done as age-appropriate cancer screening DVT prophylaxis: SubQ heparin FULL CODE Digitally Signed by DILCIA MILLS MD on 09/26/2021 05:14 PM [facility] 09-26-2021 Note ORIGINAL EXAMINATION: MRCP 09/26/2021 9:43 am TECHNIQUE: After initial T2 axial and coronal images, thick slab, thin slab and 3D coronal MRCP sequences were obtained without the administration of intravenous contrast. MIP images are provided for review. COMPARISON: CT abdomen pelvis 09/23/2021, ultrasound 09/23/2021 HISTORY: ORDERING SYSTEM PROVIDED HISTORY: Reason for Exam: Dilated common bile and pancreatic, extreme abdominal pain Acute diverticulitis. FINDINGS: Gallbladder: No evidence of cholelithiasis. No gallbladder wall thickening. There is mild nonspecific pericholecystic edema. Bile Ducts: No intrahepatic biliary ductal dilatation. The common bile duct is mildly dilated measuring 8 mm. No evidence of choledocholithiasis. Pancreatic Duct: The pancreatic duct is normal in caliber. There is trace ascites. Trace bilateral pleural effusions are noted, right more than left. IMPRESSION: Mild common bile duct dilatation without evidence of choledocholithiasis. Correlation with alkaline phosphatase is recommended with further evaluation with ERCP as clinically indicated. Mild pericholecystic fluid, likely reactive. No secondary signs of cholecystitis. Trace ascites, nonspecific and may be reactive. Trace bilateral pleural effusions, right more than left. I have personally reviewed the images of this examination and agree with the resident's findings and interpretation. Interpreted by: Kenneth Calderon MD Preliminary Report By: Jean Marie Rodriguez Electronically signed By Kenneth Calderon MD Dictated Date: 09/26/2021 9:54:55 AM Prelim Date: 09/26/2021 11:14:14 AM Sign Date: 09/26/2021 11:14:14 AM Ordering Provider: [facility] 09-26-2021 Note ORIGINAL EXAMINATION: MRCP 09/26/2021 9:43 am TECHNIQUE: After initial T2 axial and coronal images, thick slab, thin slab and 3D coronal MRCP sequences were obtained without the administration of intravenous contrast. MIP images are provided for review. COMPARISON: CT abdomen pelvis 09/23/2021, ultrasound 09/23/2021 HISTORY: ORDERING SYSTEM PROVIDED HISTORY: Reason for Exam: Dilated common bile and pancreatic, extreme abdominal pain Acute diverticulitis. FINDINGS: Gallbladder: No evidence of cholelithiasis. No gallbladder wall thickening. There is mild nonspecific pericholecystic edema. Bile Ducts: No intrahepatic biliary ductal dilatation. The common bile duct is mildly dilated measuring 8 mm. No evidence of choledocholithiasis. Pancreatic Duct: The pancreatic duct is normal in caliber. There is trace ascites. Trace bilateral pleural effusions are noted, right more than left. IMPRESSION: Mild common bile duct dilatation without evidence of choledocholithiasis. Correlation with alkaline phosphatase is recommended with further evaluation with ERCP as clinically indicated. Mild pericholecystic fluid, likely reactive. No secondary signs of cholecystitis. Trace ascites, nonspecific and may be reactive. Trace bilateral pleural effusions, right more than left. I have personally reviewed the images of this examination and agree with the resident's findings and interpretation. Interpreted by: Kenneth Calderon MD Preliminary Report By: Jean Marie Rodriguez Electronically signed By Kenneth Calderon MD Dictated Date: 09/26/2021 9:54:55 AM Prelim Date: 09/26/2021 11:14:14 AM Sign Date: 09/26/2021 11:14:14 AM Ordering Provider: [facility] 09-26-2021 [facility] Progress note Date of Service 09/26/2021 Subjective No overnight events. Patient resting this morning. Still complain of abdominal pain which he describes as a diffuse burning sensation. She is having multiple bowel movements. She denies any nausea or vomiting. Patient is currently n.p.o. for MRCP. Objective Vitals and Measurements T: 37.1 C (Oral) TMIN: 36.7 C (Oral) TMAX: 37.2 C (Oral) HR: 72(Monitored) RR: 18 BP: 118/68 SpO2: 94% Intake and Output 7AM Yesterday to 7AM Today Intake and Output (Last 24 hours) Intake Administration Information 1000.00 Oral Intake 20.00 Output Stool Count 2.00 Urine Count 2.00 Emesis Count 0.00 Total Summary Total Intake 1020.00 Total Output 0.00 Fluid Balance 1020.00 Physical Exam General: A+Ox3 CV: RRR, no MRG Resp: CTAB Abd: Soft, minimal distention, tenderness palpation diffusely with no rebound or guarding, positive bowel sounds Weight Dosing Weight: 61.4 kg (09/23/21) Dosing Weight: 61.4 kg (09/23/21) Medications Medications (15) Active Scheduled: (6) cefTRIAXone IVP syringe 2 gram(s) 20 mL, IV Push (INT), qDay heparin 5,000 units/mL (1 mL) vial 5,000 unit(s) 1 mL, Subcutaneous, q8h metronidazole PMX 500 mg 100 mL, IV Piggyback, q8h potassium acetate 40 mEq 20 mL, IV Piggyback, Once potassium bicarbonate-citric acid 20 mEq EFF tablet 40 mEq 2 tab(s), Oral, Once vancomycin 125 mg / 2.5 mL ORAL Syringe 125 mg 2.5 mL, Oral, q6h Continuous: (1) D5/LR 1,000 mL 1,000 mL, Intravenous, 125 mL/hr PRN: (8) acetaminophen-HYDROcodone 325-5 mg tablet 2 tab(s), Oral, q6h diphenhyDRAMINE 50 mg/mL (1 mL) INJ 50 mg 1 mL, IV Push, Once epinephrine 1 mg/mL Solution AMP 0.3 mg 0.3 mL, Intramuscular, Once hydroxyzine hcl 25 mg tablet 25 mg 1 tab(s), Oral, TID morphine 2 mg/mL 1 mL syringe 2 mg 1 mL, IV Push, q3h morphine 4 mg/mL 1mL INJ 5 mg 1.25 mL, IV Push, q3h ondansetron 2 mg/ 1 mL 2 mL INJ 4 mg 2 mL, IV Push, q6h tiZANidine 4 mg tablet 4 mg 1 tab(s), Oral, QID Lab Results 09/26 05:26 WBC: 6.1 Hgb: 8.5 L Hct: 25.3 L Platelet: 141 L Neutrophil %: 81.6 H Glucose Level: 125 H Sodium Level: 145 Potassium Level: 2.8 L BUN: <5.0 L Creatinine Lvl (s): 0.42 L 09/25 05:22 WBC: 7.8 Hgb: 8.9 L Hct: 26.3 L Platelet: 146 L Neutrophil %: 86.5 H Glucose Level: 106 Sodium Level: 145 Potassium Level: 3.5 BUN: 9.0 Creatinine Lvl (s): 0.44 L Imaging Results and Diagnostics MRCP pending EKG No qualifying data available. Assessment/Plan Abdominal pain Patient is a 56-year-old female with diverticulitis, positive COVID, Overall patient been stable, afebrile stable vital signs. White count remains normal. Exam is otherwise benign. Await MRCP results, however low suspicion for gallbladder pathology. Continue antibiotics. Okay to advance diet as tolerated once MRCP complete. Encourage activity and ambulation. Continue to follow closely. Digitally Signed by CASTRO DYER MD on 09/26/2021 08:30 AM [facility] 09-25-2021 Note Date of Service 09/25/2021 Chief Complaint 56-year-old female with recent history of diverticulitis presenting with lower abdominal pain. Subjective Patient was examined at bedside. She describes continuation of lower abdominal pain. The pain is diffuse across all lower quadrants, constant, non-radiating, sharp, and she rates it 7/10 in terms of intensity. Aggravated by movement and alleviated by rest. She has nausea but denies any vomiting or bloody emesis. Since 3AM this morning she has been having at least 1 bowel movement every hour. The stool is yellow to green, watery, diarrhea-like with no particular odor. She denies any hematochezia or melena, dysuria, hematuria. Denies any chest pain shortness of breath cough. Objective Vitals and Measurements T: 37.4 C (Oral) TMIN: 37.0 C (Oral) TMAX: 37.7 C (Oral) HR: 82(Monitored) RR: 18 BP: 104/67 SpO2: 94% Intake and Output 7AM Yesterday to 7AM Today Intake and Output (Last 24 hours) Intake Administration Information 1000.00 Oral Intake 400.00 Output Stool Count 7.00 Urine Count 4.00 Emesis Count 0.00 Total Summary Total Intake 1400.00 Total Output 0.00 Fluid Balance 1400.00 Physical Exam General Appearance: looks stated age, no acute distress Head: normocephalic, atraumatic EENT: no scleral icterus, nasal septum intact, oral mucosa pink Neck: supple, no masses Cardiac: RRR, normal S1, S2 Lungs: Clear to auscultation, no wheezing no rhonchi Abdomen: No jaundice no organomegaly. Normal active bowel sounds. Extreme tenderness upon soft palpation of the lower quadrants, more so on the RLQ. Due patient's response, deep palpation of the abdomen was not performed. No dullness to percussion. Rebound tenderness present. Negative pacheco and Rovsing sign. Musculoskeletal: Full ROM Neurological: alert and Oriented x3, no focal neurologic deficeits Skin: no ulcers, rash Psychiatric: appropriate affect, judgement is normal Weight Dosing Weight: 61.4 kg (09/23/21) Dosing Weight: 61.4 kg (09/23/21) Medications Medications (12) Active Scheduled: (4) cefTRIAXone IVP syringe 2 gram(s) 20 mL, IV Push (INT), qDay heparin 5,000 units/mL (1 mL) vial 5,000 unit(s) 1 mL, Subcutaneous, q8h ketorolac 15 mg/mL vial 15 mg 1 mL, IV Push, q6h metronidazole PMX 500 mg 100 mL, IV Piggyback, q8h Continuous: (1) D5/LR 1,000 mL 1,000 mL, Intravenous, 125 mL/hr PRN: (7) diphenhyDRAMINE 50 mg/mL (1 mL) INJ 50 mg 1 mL, IV Push, Once epinephrine 1 mg/mL Solution AMP 0.3 mg 0.3 mL, Intramuscular, Once hydroxyzine hcl 25 mg tablet 25 mg 1 tab(s), Oral, TID morphine 2 mg/mL 1 mL syringe 2 mg 1 mL, IV Push, q3h morphine 4 mg/mL 1mL INJ 5 mg 1.25 mL, IV Push, q3h ondansetron 2 mg/ 1 mL 2 mL INJ 4 mg 2 mL, IV Push, q6h tiZANidine 4 mg tablet 4 mg 1 tab(s), Oral, QID Lab Results 09/25 05:22 WBC: 7.8 Hgb: 8.9 L Hct: 26.3 L Platelet: 146 L Neutrophil %: 86.5 H Glucose Level: 106 Sodium Level: 145 Potassium Level: 3.5 BUN: 9.0 Creatinine Lvl (s): 0.44 L 09/24 17:06 WBC: 9.7 Hgb: 10.1 L Hct: 29.7 L Platelet: 165 Neutrophil %: 90.4 H Glucose Level: 72 Sodium Level: 141 Potassium Level: 3.3 L BUN: 12.0 Creatinine Lvl (s): 0.44 L C. diff pcr positive 09/25 C. diff toxin negative 09/25 fecal occult blood positive 09/25 Imaging Results and Diagnostics US Abdomen Limited Result Date: September 23, 2021 Verified By: IDALMIS SO MD CLINICAL STATEMENT: IMPRESSION: Dilated common bile duct and pancreatic ducts, concerning for distalobstruction or sphincter dysfunction. Consider further evaluation with MRCPor ERCP. Nonshadowing subcentimeter echogenic focus along the dependent portion of thegallbladder, nonspecific, could relate to a tiny cholelithiasis, minimalsludge or polyp. I have personally reviewed the images of this examination and agree with theresident's findings and interpretation. XR Chest 1 View Result Date: September 23, 2021 Verified By: CASTRO PARMAR MD CLINICAL STATEMENT: IMPRESSION: No acute cardiopulmonary process. CT Abd/Pelvis w/ IV Contrast Only Result Date: September 23, 2021 Verified By: SYLWIA PALMER MD CLINICAL STATEMENT: IMPRESSION: 1. Moderate diverticulitis similar to the prior examination without evidenceof an abscess or pneumoperitoneum.2. Interval appearing mild ascites.3. Dilated common and pancreatic ducts. Correlate with alkaline phosphataselevels and ultrasound. Assessment/Plan Acute sigmoid diverticulitis -Patient continues to have diffuse abdominal pain throughout her lower quadrants. Her vomitting and constipation has resolved. -Possible etiologies: dietary, anatomical, abnormality, smoking (given patient's 30 pack year smoking history) -CT scan shows sigmoid diverticulitis -fecal occult blood was positive today -Condition is stable given improving vitals, -Plan: continue IV fluids LR 1000 continue rocephin and flagyl Dilated common bile and pancreatic duct -US shows dilated CBD, pancreatic duct -patient has no signs of jaundice, normal LFTs, normal alk phos -Plan: ordered MRCP, scheduled for tomorrow 9 AM, keep patient NPO after midnight, surgery has seen patient and agrees with antibiotic plan -full liquid diet in the meantime Covid-19 Infection -patient presented to ED with fever and tachycardia, so covid test was administered. She tested positive. She denies any cough or SOB. Given patient's past history of smoking, HTN, and COPD, she presented with high risk for COVID-19 deterioration. The benefits of bebtelovimab was explained and patient originally agreed then refused after searching online and noting that bebtelovimab is experimental. -Plan: continue to monitor vitals C. diff infection -patient started having diarrhea this morning, there ordered c. diff screening. Her c. diff PCR test was positive and c. diff toxin assay was negative. -Plan: started vancomycin oral, contact precaution DVT prophylaxis: subc heparin FULL CODE Digitally Signed by DILCIA MILLS MD on 09/25/2021 04:19 PM [facility] 09-25-2021 Note Date of Service 09/25/2021 Chief Complaint 56-year-old female with recent history of diverticulitis presenting with lower abdominal pain. Subjective Patient was examined at bedside. She describes continuation of lower abdominal pain. The pain is diffuse across all lower quadrants, constant, non-radiating, sharp, and she rates it 7/10 in terms of intensity. Aggravated by movement and alleviated by rest. She has nausea but denies any vomiting or bloody emesis. Since 3AM this morning she has been having at least 1 bowel movement every hour. The stool is yellow to green, watery, diarrhea-like with no particular odor. She denies any hematochezia or melena, dysuria, hematuria. Denies any chest pain shortness of breath cough. Objective Vitals and Measurements T: 37.4 C (Oral) TMIN: 37.0 C (Oral) TMAX: 37.7 C (Oral) HR: 82(Monitored) RR: 18 BP: 104/67 SpO2: 94% Intake and Output 7AM Yesterday to 7AM Today Intake and Output (Last 24 hours) Intake Administration Information 1000.00 Oral Intake 400.00 Output Stool Count 7.00 Urine Count 4.00 Emesis Count 0.00 Total Summary Total Intake 1400.00 Total Output 0.00 Fluid Balance 1400.00 Physical Exam General Appearance: looks stated age, no acute distress Head: normocephalic, atraumatic EENT: no scleral icterus, nasal septum intact, oral mucosa pink Neck: supple, no masses Cardiac: RRR, normal S1, S2 Lungs: Clear to auscultation, no wheezing no rhonchi Abdomen: No jaundice no organomegaly. Normal active bowel sounds. Extreme tenderness upon soft palpation of the lower quadrants, more so on the RLQ. Due patient's response, deep palpation of the abdomen was not performed. No dullness to percussion. Rebound tenderness present. Negative pacheco and Rovsing sign. Musculoskeletal: Full ROM Neurological: alert and Oriented x3, no focal neurologic deficeits Skin: no ulcers, rash Psychiatric: appropriate affect, judgement is normal Weight Dosing Weight: 61.4 kg (09/23/21) Dosing Weight: 61.4 kg (09/23/21) Medications Medications (12) Active Scheduled: (4) cefTRIAXone IVP syringe 2 gram(s) 20 mL, IV Push (INT), qDay heparin 5,000 units/mL (1 mL) vial 5,000 unit(s) 1 mL, Subcutaneous, q8h ketorolac 15 mg/mL vial 15 mg 1 mL, IV Push, q6h metronidazole PMX 500 mg 100 mL, IV Piggyback, q8h Continuous: (1) D5/LR 1,000 mL 1,000 mL, Intravenous, 125 mL/hr PRN: (7) diphenhyDRAMINE 50 mg/mL (1 mL) INJ 50 mg 1 mL, IV Push, Once epinephrine 1 mg/mL Solution AMP 0.3 mg 0.3 mL, Intramuscular, Once hydroxyzine hcl 25 mg tablet 25 mg 1 tab(s), Oral, TID morphine 2 mg/mL 1 mL syringe 2 mg 1 mL, IV Push, q3h morphine 4 mg/mL 1mL INJ 5 mg 1.25 mL, IV Push, q3h ondansetron 2 mg/ 1 mL 2 mL INJ 4 mg 2 mL, IV Push, q6h tiZANidine 4 mg tablet 4 mg 1 tab(s), Oral, QID Lab Results 09/25 05:22 WBC: 7.8 Hgb: 8.9 L Hct: 26.3 L Platelet: 146 L Neutrophil %: 86.5 H Glucose Level: 106 Sodium Level: 145 Potassium Level: 3.5 BUN: 9.0 Creatinine Lvl (s): 0.44 L 09/24 17:06 WBC: 9.7 Hgb: 10.1 L Hct: 29.7 L Platelet: 165 Neutrophil %: 90.4 H Glucose Level: 72 Sodium Level: 141 Potassium Level: 3.3 L BUN: 12.0 Creatinine Lvl (s): 0.44 L C. diff pcr positive 09/25 C. diff toxin negative 09/25 fecal occult blood positive 09/25 Imaging Results and Diagnostics US Abdomen Limited Result Date: September 23, 2021 Verified By: IDALMIS SO MD CLINICAL STATEMENT: IMPRESSION: Dilated common bile duct and pancreatic ducts, concerning for distalobstruction or sphincter dysfunction. Consider further evaluation with MRCPor ERCP. Nonshadowing subcentimeter echogenic focus along the dependent portion of thegallbladder, nonspecific, could relate to a tiny cholelithiasis, minimalsludge or polyp. I have personally reviewed the images of this examination and agree with theresident's findings and interpretation. XR Chest 1 View Result Date: September 23, 2021 Verified By: CASTRO PARMAR MD CLINICAL STATEMENT: IMPRESSION: No acute cardiopulmonary process. CT Abd/Pelvis w/ IV Contrast Only Result Date: September 23, 2021 Verified By: SYLWIA PALMER MD CLINICAL STATEMENT: IMPRESSION: 1. Moderate diverticulitis similar to the prior examination without evidenceof an abscess or pneumoperitoneum.2. Interval appearing mild ascites.3. Dilated common and pancreatic ducts. Correlate with alkaline phosphataselevels and ultrasound. Assessment/Plan Acute sigmoid diverticulitis -Patient continues to have diffuse abdominal pain throughout her lower quadrants. Her vomitting and constipation has resolved. -Possible etiologies: dietary, anatomical, abnormality, smoking (given patient's 30 pack year smoking history) -CT scan shows sigmoid diverticulitis -fecal occult blood was positive today -Condition is stable given improving vitals, -Plan: continue IV fluids LR 1000 continue rocephin and flagyl Dilated common bile and pancreatic duct -US shows dilated CBD, pancreatic duct -patient has no signs of jaundice, normal LFTs, normal alk phos -Plan: ordered MRCP, scheduled for tomorrow 9 AM, keep patient NPO after midnight, surgery has seen patient and agrees with antibiotic plan -full liquid diet in the meantime Covid-19 Infection -patient presented to ED with fever and tachycardia, so covid test was administered. She tested positive. She denies any cough or SOB. Given patient's past history of smoking, HTN, and COPD, she presented with high risk for COVID-19 deterioration. The benefits of bebtelovimab was explained and patient originally agreed then refused after searching online and noting that bebtelovimab is experimental. -Plan: continue to monitor vitals C. diff infection -patient started having diarrhea this morning, there ordered c. diff screening. Her c. diff PCR test was positive and c. diff toxin assay was negative. -Plan: started vancomycin oral, contact precaution DVT prophylaxis: subc heparin FULL CODE Digitally Signed by DILCIA MILLS MD on 09/25/2021 04:19 PM [facility] 09-25-2021 Surgery Hospital Progress note Date of Service 09/25/2021 Subjective Overnight events. Patient resting this morning. Pain is well controlled. Overall she states her pain is slightly better than yesterday. She reports having multiple bowel movements. Patient denies any nausea or vomiting. She is tolerating clear liquids. Objective Vitals and Measurements T: 37.4 C (Oral) TMIN: 37.0 C (Oral) TMAX: 37.7 C (Oral) HR: 84 RR: 18 BP: 104/67 SpO2: 94% Intake and Output 7AM Yesterday to 7AM Today Intake and Output (Last 24 hours) Intake Administration Information 1000.00 Oral Intake 400.00 Output Stool Count 4.00 Urine Count 4.00 Emesis Count 0.00 Total Summary Total Intake 1400.00 Total Output 0.00 Fluid Balance 1400.00 Physical Exam General: A+Ox3 CV: RRR, no MRG Resp: CTAB Abd: Soft, ND, diffuse tenderness palpation, rebound or guarding, positive bowel sounds Weight Dosing Weight: 61.4 kg (09/23/21) Dosing Weight: 61.4 kg (09/23/21) Medications Medications (12) Active Scheduled: (4) cefTRIAXone IVP syringe 2 gram(s) 20 mL, IV Push (INT), qDay heparin 5,000 units/mL (1 mL) vial 5,000 unit(s) 1 mL, Subcutaneous, q8h ketorolac 15 mg/mL vial 15 mg 1 mL, IV Push, q6h metronidazole PMX 500 mg 100 mL, IV Piggyback, q8h Continuous: (1) D5/LR 1,000 mL 1,000 mL, Intravenous, 125 mL/hr PRN: (7) diphenhyDRAMINE 50 mg/mL (1 mL) INJ 50 mg 1 mL, IV Push, Once epinephrine 1 mg/mL Solution AMP 0.3 mg 0.3 mL, Intramuscular, Once hydroxyzine hcl 25 mg tablet 25 mg 1 tab(s), Oral, TID morphine 2 mg/mL 1 mL syringe 2 mg 1 mL, IV Push, q3h morphine 4 mg/mL 1mL INJ 5 mg 1.25 mL, IV Push, q3h ondansetron 2 mg/ 1 mL 2 mL INJ 4 mg 2 mL, IV Push, q6h tiZANidine 4 mg tablet 4 mg 1 tab(s), Oral, QID Lab Results 09/25 05:22 WBC: 7.8 Hgb: 8.9 L Hct: 26.3 L Platelet: 146 L Neutrophil %: 86.5 H Glucose Level: 106 Sodium Level: 145 Potassium Level: 3.5 BUN: 9.0 Creatinine Lvl (s): 0.44 L 09/24 17:06 WBC: 9.7 Hgb: 10.1 L Hct: 29.7 L Platelet: 165 Neutrophil %: 90.4 H Glucose Level: 72 Sodium Level: 141 Potassium Level: 3.3 L BUN: 12.0 Creatinine Lvl (s): 0.44 L Imaging Results and Diagnostics MRCP is pending- EKG No qualifying data available. Assessment/Plan Abdominal pain Patient is a 56-year-old female with COVID, diverticulitis, Overall abdomen remains benign. She is having diffuse abdominal pain, with a slightly difficult exam given her chronic pain history. Certainly no evidence of peritonitis currently. She remains afebrile with normal white count. Await MRCP results. I have a low suspicion for gallbladder pathology, as her liver function test remain normal. Okay to advance to full liquid diet. Continue antibiotics. Continue to follow. Digitally Signed by CASTRO DYER MD on 09/25/2021 07:54 AM [facility] 09-24-2021 Surgery Consult note Date of Service 09/24/2021 Reason for Consultation Diverticulitis Referring Physician Dr. Soler History of Present Illness This is a split shared visit between myself and Dr. Dyer This patient is a 56-year-old female with a past medical history significant for chronic back pain and recent diagnosis of diverticulitis in August who presented to [facility] on 09/23/2021 with complaints of abdominal pain with associated nausea and fever of 101.7. The patient reports that she had recently completed 10 days worth of ciprofloxacin and Flagyl as an outpatient following the first diagnosis of diverticulitis. She reports that she was off antibiotics for approximately 1 week before her abdominal pain and nausea returned. She also experienced intermittent constipation. Due to the worsening pain, she presented for reevaluation. A CT scan of the abdomen and pelvis was obtained on admission showing moderate diverticulitis similar to the prior examination without evidence of an abscess or pneumoperitoneum, interval appearing mild ascites, and dilated common and pancreatic ducts per the interpretation. Her laboratory data was negative for leukocytosis and her liver function tests were within normal limits other than a low ALT at 8. Respiratory PCR was positive for COVID. Following the CT scan findings, an ultrasound of the right upper quadrant was obtained showing dilated common bile duct and pancreatic ducts concerning for distal obstruction or sphincter dysfunction with a nonshadowing centimeter echogenic focus along the dependent portion of the gallbladder that was nonspecific per the report. She was admitted to the hospital under the medical service with consultation placed to general surgery for further recommendations given her diverticulitis. On examination, she was seen resting at the side of her bed. She complains of diffuse abdominal pain but that is worse on the left side. She additionally complains of a decreased appetite and associated intermittent nausea. She denies vomiting. She is currently receiving IV Rocephin and Flagyl. Her abdomen is soft, slightly rounded and is diffusely tender with palpation. Bowel sounds are present. No evidence of peritonitis. She denies ever having a colonoscopy in the past; she was scheduled for one this coming November. Review of Systems All other pertinent positives and negatives are present in the HPI. All other systems are reviewed as negative unless otherwise previously mentioned. Physical Exam Vitals and Measurements T: 37.0 C (Oral) TMIN: 37.0 C (Oral) TMAX: 37.7 C (Oral) HR: 95 RR: 18 BP: 118/68 SpO2: 91% HT: 160 cm WT: 61.4 kg BMI: 23.98 Weight Dosing Weight: 61.4 kg (09/23/21) Dosing Weight: 61.4 kg (09/23/21) General: Awake, alert and oriented x4. In no apparent distress. Able to answer questions appropriately and speak in full sentences. Sitting upright at the side of the bed. HEENT: Sclera anicteric. Heart: Regular rate and rhythm. S1 and S2 present. Lungs: Chest rise symmetrical. Respirations unlabored. Lungs clear/diminished upon auscultation. Abdomen: Soft, rounded and diffusely tender with palpation. No rigidity or guarding noted. Bowel sounds are active. Extremities: Freely moving. Psychiatric: Calm and cooperative. Lab Results 09/23 18:27 WBC: 9.3 Hgb: 10.3 L Hct: 30.4 L Platelet: 178 Neutrophil %: 85.8 H Glucose Level: 83 Sodium Level: 138 Potassium Level: 3.5 BUN: 15.0 Creatinine Lvl (s): 0.56 09/23 11:14 WBC: 8.1 Hgb: 11.8 L Hct: 34.5 Platelet: 185 Neutrophil %: 91.6 H Glucose Level: 124 H Sodium Level: 137 Potassium Level: 3.4 L BUN: 18.0 Creatinine Lvl (s): 0.82 Imaging Results and Diagnostics US Abdomen Limited Result Date: September 23, 2021 Verified By: IDALMIS SO MD CLINICAL STATEMENT: IMPRESSION: Dilated common bile duct and pancreatic ducts, concerning for distal obstruction or sphincter dysfunction. Consider further evaluation with MRCP or ERCP. Nonshadowing subcentimeter echogenic focus along the dependent portion of the gallbladder, nonspecific, could relate to a tiny cholelithiasis, minimal sludge or polyp. I have personally reviewed the images of this examination and agree with the resident's findings and interpretation. XR Chest 1 View Result Date: September 23, 2021 Verified By: CASTRO PARMAR MD CLINICAL STATEMENT: IMPRESSION: No acute cardiopulmonary process. CT Abd/Pelvis w/ IV Contrast Only Result Date: September 23, 2021 Verified By: SYLWIA PALMER MD CLINICAL STATEMENT: IMPRESSION: 1. Moderate diverticulitis similar to the prior examination without evidence of an abscess or pneumoperitoneum.2. Interval appearing mild ascites.3. Dilated common and pancreatic ducts. Correlate with alkaline phosphatase levels and ultrasound. Assessment/Plan Abdominal pain This patient is a 56-year-old female who was admitted to the hospital under the medical service on 09/23/2021 after she presented for evaluation of abdominal pain with associated nausea and fever. Patient was treated with 10 days worth of Cipro and Flagyl on outpatient basis when she was diagnosed with diverticulitis in August. She reports that she was feeling better for approximately 1 week after completing the antibiotics. CT scan imaging of the abdomen and pelvis was concerning for moderate diverticulitis similar to the prior exam without evidence of an abscess or pneumoperitoneum, there was also reports of interval appearing mild ascites and dilated common and pancreatic ducts per the radiologist. Laboratory data, vital signs, and I's/O have been reviewed. Patient is COVID-positive. No leukocytosis is present on her labs yesterday; no new labs this morning. Liver function tests were within normal limits other than a low ALT at 8. On examination, she complains of diffuse abdominal pain that is worse on her left side with palpation. She denies vomiting. Her abdomen is soft, slightly rounded, and her bowel sounds are present. There is no evidence of peritonitis on examination. She is currently receiving IV antibiotics with Rocephin and Flagyl. Plan: 1. Abdominal pain with diverticulitis Patient with recurrent abdominal pain following recent diverticulitis diagnosis. Agree with IV antibiotic administration at this time. Will allow patient to have a clear liquid diet as she tolerates. There are no plans for operative intervention at this time. Indications for operative intervention were discussed at the bedside with the patient. She voiced understanding and was in agreement with this plan. We will continue to follow along and monitor her serial abdominal exams 2. CT scan also showing dilated common and pancreatic ducts Liver function tests/alkaline phosphatase showing no elevation Will discuss this with Dr. Dyer 3. Medical management/treatment of COVID per the primary medical team 4. Encourage mobilization as able and hourly incentive spirometry use/coughing and deep breathing exercises Thank you for allowing us to participate in the care of this patient. The case has been discussed with Dr. Dyer. Please see his addendum for further details. Problem List/Past Medical History Diverticulitis Chronic back pain Procedure/Surgical History Nerve root: 09/13/13 Partial vulvectomy: 08/24/13 Cystoscopy: 08/20/13 Lymph node biopsy: 06/04/10 Laminectomy and discectomy: 2002 Laminectomy: 1997 Breast biopsy sample Cyst - diagnostic aspiration Vaginal hysterectomy Medications Inpatient bebtelovimab, 175 mg, Intravenous, Once Flagyl IVPB, 500 mg= 100 mL, IV Piggyback, q8h heparin 5000 units/mL injection, 5000 unit(s)= 1 mL, Subcutaneous, q8h hydrOXYzine hydrochloride 25 mg oral tablet, 25 mg= 1 tab(s), Oral, TID, PRN morphine, 2 mg= 1 mL, IV Push, q3h, PRN morphine, 5 mg= 1.25 mL, IV Push, q3h, PRN NS 1,000 mL, 1000 mL, Intravenous ondansetron, 4 mg= 2 mL, IV Push, q6h, PRN Rocephin, 2 gram(s)= 20 mL, IV Push (INT), qDay tiZANidine, 4 mg= 1 tab(s), Oral, QID Toradol, 15 mg= 1 mL, IV Push, q6h Home acetaminophen-hydrocodone 325 mg-7.5 mg oral tablet, 1 tab(s), Oral, q6hr hydrOXYzine hydrochloride 25 mg oral tablet, 25 mg= 1 tab(s), Oral, TID, PRN ibuprofen 600 mg oral tablet, 600 mg= 1 tab(s), Oral, q6hr, PRN, 1 refills tiZANidine 4 mg oral tablet, 4 mg= 1 tab(s), Oral, QID Tylenol PM Extra Strength oral tablet, 1 tab(s), Oral, qHS, PRN Allergies labetalol Social History Tobacco use: Denies Substance use: Denies Alcohol use: Denies Resides at home; daughter lives 5 minutes away Family History Asthma: Sister and Daughter. HTN - Hypertension: Sister. Heart disease: Sister. Immunizations tetanus/diphth/pertuss (Tdap) adult/adol: 0.5 mL (10/01/17) Digitally Signed by TOM TRUJILLO on 09/24/2021 01:44 PM [facility] 09-24-2021 Progress note Date of Service 09/24/2021 Subjective Patient was seen and examined at bedside today. She still have severe abdominal pain, located in the lower abdomen, 8-10/10 in severity, aggravated by movement and relieved by rest. She denies nausea, vomiting, diarrhea since admission. She also denied fever, dyspnea, chills, cough, sputum production and hemoptysis. Objective Vitals and Measurements T: 37.7 C (Oral) TMIN: 37.0 C (Oral) TMAX: 37.7 C (Oral) HR: 99 RR: 18 BP: 121/71 SpO2: 99% HT: 160 cm WT: 61.4 kg BMI: 23.98 Intake and Output 7AM Yesterday to 7AM Today Intake and Output (Last 24 hours) Intake Output Stool Count 2.00 Urine Count 2.00 Emesis Count 0.00 Total Summary Total Intake 0.00 Total Output 0.00 Fluid Balance 0.00 Physical Exam General Appearance: Patient comfortably lying on bed, not in acute distress Head: Normocephalic, atraumatic EENT: PERRLA, Neck: Supple, no JVD, no mass Cardiac: s1s2,RRR, no murmurs or rubs or gallops Lungs: Clear to auscultation bilaterally, no wheeze or rhonchi or crackles Abdomen: Soft, tenderness over lower abdomen, rebound tenderness is present, voluntary guarding was present, bowel sounds are present and normal. Musculoskeletal: Full ROM , no gross deformities Extremities: No rash or ulcers or pedal edema Neurological: Alert, oriented x 3, grossly no focal neurological deficits Skin: No rash or ulcers Psychiatric: Normal mood and affect Weight Dosing Weight: 61.4 kg (09/23/21) Dosing Weight: 61.4 kg (09/23/21) Medications Medications (13) Active Scheduled: (6) bebtelovimab 175 mg 2 mL, IV Push (INT), Once cefTRIAXone IVP syringe 2 gram(s) 20 mL, IV Push (INT), qDay heparin 5,000 units/mL (1 mL) vial 5,000 unit(s) 1 mL, Subcutaneous, q8h ketorolac 15 mg/mL vial 15 mg 1 mL, IV Push, q6h metronidazole PMX 500 mg 100 mL, IV Piggyback, q8h tiZANidine 4 mg tablet 4 mg 1 tab(s), Oral, QID Continuous: (1) NS (0.9% nacl) 1,000 mL 1,000 mL, Intravenous, 100 mL/hr PRN: (6) diphenhyDRAMINE 50 mg/mL (1 mL) INJ 50 mg 1 mL, IV Push, Once epinephrine 1 mg/mL Solution AMP 0.3 mg 0.3 mL, Intramuscular, Once hydroxyzine hcl 25 mg tablet 25 mg 1 tab(s), Oral, TID morphine 2 mg/mL 1 mL syringe 2 mg 1 mL, IV Push, q3h morphine 4 mg/mL 1mL INJ 5 mg 1.25 mL, IV Push, q3h ondansetron 2 mg/ 1 mL 2 mL INJ 4 mg 2 mL, IV Push, q6h Lab Results 09/23 18:27 WBC: 9.3 Hgb: 10.3 L Hct: 30.4 L Platelet: 178 Neutrophil %: 85.8 H Glucose Level: 83 Sodium Level: 138 Potassium Level: 3.5 BUN: 15.0 Creatinine Lvl (s): 0.56 09/23 11:14 WBC: 8.1 Hgb: 11.8 L Hct: 34.5 Platelet: 185 Neutrophil %: 91.6 H Glucose Level: 124 H Sodium Level: 137 Potassium Level: 3.4 L BUN: 18.0 Creatinine Lvl (s): 0.82 EKG No qualifying data available. Assessment/Plan Acute sigmoid diverticulitis Dilated common bile duct and pancreatic duct of unclear etiology Mild COVID-19 infection Positive SIRS resolved Questionable HTN and COPD History of chronic back pain and surgery DVT prophylaxis Full CODE STATUS Patient is currently on Rocephin and Flagyl for acute sigmoid diverticulitis. Physical exam today showed no improvement. Vitals were stable. Was a liquid diet as recommended per surgery. We will continue antibiotics and maintenance fluids. Both CT scan of the abdomen and ultrasound revealed dilated common bile duct and pancreatic duct. No signs of obstructive jaundice on physical exam and lab works. We will follow surgery's recommendations. For mild COVID-19 infection, patient has sudden risk factors including unvaccinated status, questionable hypertension and COPD in the past. We will get 1 dose of monoclonal Ab for mild COVID-19 infection. Subcutaneous heparin for DVT prophylaxis Is a full CODE STATUS Digitally Signed by PETER SOLER MD on 09/24/2021 04:01 PM Digitally Signed by RENEE RAJAN MD on 09/25/2021 10:11 AM [facility] 09-24-2021 Note Medical Teaching Service Patient seen in collaboration with the resident physician and the medical teaching service. Patient seen and examined independently. Care discussed and coordinated by the entire care during teaching rounds and throughout the remainder of the day with my direct collaboration. Still significantly tender on exam. Surgery has been consulted. Continue IV ABX. Ondansetron PRN. No SOB at present. Monitor for Sx of COVID. IVF @ 125ml/h renee rajan md [facility] Digitally Signed by RENEE RAJAN MD on 09/24/2021 02:23 PM [facility] 09-24-2021 History and physical note Date of Service 09/23/2021 Chief Complaint Patient presents with abdominal pain, nausea and blood in her stool. Pt was recently treated for diverticulitis. History of Present Illness 56-year-old female with no significant medical illness in the past apart from recent diagnosis of acute sigmoid diverticulitis and 09/07/2021, coming in today with continuous and worsening of lower abdominal pain, nausea, vomiting and constipation for the past 1 week. Patient recently visited ER on 09/07, when she was diagnosed with acute sigmoid diverticulitis and sent home with p.o. ciprofloxacin and Flagyl. She continued to have the pain. However, over the past 1 week, there was worsening of lower abdominal pain,all across lower abdomen, 8/10 at rest and 10/10 with movement, dull aching pain, no radiation, aggravated by movement, not relieved by simple analgesics. It was associated with nausea and vomiting and loss of appetite. She also had constipation over the past week. However, she took Ducolax x 1 and had 1 loose bowel movement yesterday. She denied bleeding manifestations including hematemesis, melena or hematochezia. No recent travel contact history was reported. On arrival to ER, patient was febrile at 38.6, heart rate 101/min, respiratory rate 20, blood pressure 97/62, saturating 93% on room air. CBC shows no leukocytosis with hemoglobin 11.8. BMP was unremarkable with creatinine 0.82. UA showed trace bacteriuria. Lactic acid was 1.7. CT abdomen revealed a moderate diverticulitis without abscess or pneumoperitoneum. Dilated common and pancreatic ducts were also present. Patient got 1 L bolus of normal saline, analgesics and 1 dose of Cifran and Flagyl in ER and then admitted to [facility]. Review of Systems Constitutional: denies Fevers and chills , no loss of appetite, denies fatigue or weight change Eyes: Denies double vision/blurring of vision/flashes or floaters Ears, Nose, Mouth & Throat: Denies any tinnitus/hearing loss/sinus congestion/nasal discharge/sore throat Cardiovascular: Denies any chest pain/shortness of breath/hemoptysis/palpitations/marianela phoresis Respiratory: Denies any shortness of breath/cough/productive sputum/hemoptysis Gastrointestinal: Denies any abdominal pain/nausea/vomiting/diarrhea/lolita tochezia/hematemesis/melena Genitourinary: Denies any dysuria/hematuria Musculoskeletal: denies joint pain or joint swelling or deformities Skin: No ulcers or rash Neurological: denies Weakness or numbness of extremities/facial droop/loss of balance Endocrine: Denies any heat or cold intolerance/polyuria/polydipsia/po lyphagia Hematologic/Lymphatic: denies lymphadenopathy Allergic/Immunologic: Denies any seasonal allergy/sneezing/tearing from the eyes Physical Exam Vitals and Measurements T: 38.6 C (Oral) HR: 82 RR: 18 BP: 101/44 SpO2: 95% WT: 61.4 kg Weight Dosing Weight: 61.4 kg (09/23/21) General Appearance: Patient comfortably lying on bed, not in acute distress Head: Normocephalic, atraumatic EENT: PERRLA, Neck: Supple, no JVD, no mass Cardiac: s1s2,RRR, no murmurs or rubs or gallops Lungs: Clear to auscultation bilaterally, no wheeze or rhonchi or crackles Abdomen: Soft , no distention, significant tenderness across the lower abdomen, no guarding or rigidity, no rebound tenderness, bowel sounds are present and normal, no hepatosplenomegaly, no CVA tenderness Musculoskeletal: Full ROM , no gross deformities Extremities: No rash or ulcers or pedal edema Neurological: Alert, oriented x 3, grossly no focal neurological deficits Skin: No rash or ulcers Psychiatric: Normal mood and affect Lab Results 09/23 11:14 WBC: 8.1 Hgb: 11.8 L Hct: 34.5 Platelet: 185 Neutrophil %: 91.6 H Glucose Level: 124 H Sodium Level: 137 Potassium Level: 3.4 L BUN: 18.0 Creatinine Lvl (s): 0.82 Imaging Results and Diagnostics CT Abd/Pelvis w/ IV Contrast Only Result Date: September 23, 2021 Verified By: SYLWIA PALMER MD CLINICAL STATEMENT: IMPRESSION: 1. Moderate diverticulitis similar to the prior examination without evidenceof an abscess or pneumoperitoneum.2. Interval appearing mild ascites.3. Dilated common and pancreatic ducts. Correlate with alkaline phosphataselevels and ultrasound. Assessment/Plan Positive SIRS Acute sigmoid diverticulitis Normocytic anemia History of chronic back pain and back surgery Due to prophylaxis Full CODE STATUS Patient met criteria for SIRS initially. After fluid bolus, her vitals improved and now patient is stable. It is likely secondary to dehydration. Continue maintenance fluids at 100/h. Patient has acute sigmoid diverticulitis. There is no abscess or pneumoperitoneum on CT abdomen today. We will keep n.p.o., give 1 more liter bolus of normal saline start maintenance fluid at 100/h. Adequate pain control with Toradol and morphine based on the pain scale. Empirically treat with ceftriaxone and Flagyl. We will get blood culture. Patient has mild normocytic anemia on presentation. Etiology is unclear. We will monitor the hemoglobin and possible work-up later. Will review and resume the other home medications as tolerated DVT prophylaxis subcutaneous heparin Full CODE STATUS Problem List/Past Medical History Ongoing Anemia Arthritis Asthma Back pain Chronic pain Condyloma COPD - Chronic obstructive pulmonary disease Depression Emphysema of lung Glasses Hematuria Herniation of intervertebral disc Insomnia Irritable bowel syndrome Migraine Neck Osteoporosis Partial vulvectomy Poor venous access SOBOE - Shortness of breath on exertion Urgency - urination Urinary calculus Urinary incontinence Vision impairment Vulvar lesion Historical DVT - Deep vein thrombosis Pneumonia Procedure/Surgical History Nerve root: 09/13/13 Partial vulvectomy: 08/24/13 Cystoscopy: 08/20/13 Lymph node biopsy: 06/04/10 Laminectomy and discectomy: 2002 Laminectomy: 1997 Breast biopsy sample Cyst - diagnostic aspiration Vaginal hysterectomy Medications Home Medications (5) Active acetaminophen-hydrocodone 325 mg-7.5 mg oral tablet 1 tab(s), Oral, q6hr hydrOXYzine hydrochloride 25 mg oral tablet 25 mg = 1 tab(s), PRN, Oral, TID ibuprofen 600 mg oral tablet 600 mg = 1 tab(s), PRN, Oral, q6hr tiZANidine 4 mg oral tablet 4 mg = 1 tab(s), Oral, QID Tylenol PM Extra Strength oral tablet 1 tab(s), PRN, Oral, qHS Allergies labetalol Social History Tobacco Nicotine Use: Former smoker, quit more than 30 days ago., 08/09/2020 Smoking History of [id number] history of smoking, quit 1 year ago Denies alcohol and substance abuse Currently lives with her son. Family History Asthma: Sister and Daughter. HTN - Hypertension: Sister. Heart disease: Sister. Immunizations tetanus/diphth/pertuss (Tdap) adult/adol: 0.5 mL (10/01/17) Code Status No qualifying data available. Digitally Signed by PETER SOLER MD on 09/23/2021 03:00 PM [facility] 09-24-2021 Surgery Consult note Date of Service 09/24/2021 Reason for Consultation Diverticulitis Referring Physician Dr. Soler History of Present Illness This is a split shared visit between myself and Dr. Dyer This patient is a 56-year-old female with a past medical history significant for chronic back pain and recent diagnosis of diverticulitis in August who presented to [facility] on 09/23/2021 with complaints of abdominal pain with associated nausea and fever of 101.7. The patient reports that she had recently completed 10 days worth of ciprofloxacin and Flagyl as an outpatient following the first diagnosis of diverticulitis. She reports that she was off antibiotics for approximately 1 week before her abdominal pain and nausea returned. She also experienced intermittent constipation. Due to the worsening pain, she presented for reevaluation. A CT scan of the abdomen and pelvis was obtained on admission showing moderate diverticulitis similar to the prior examination without evidence of an abscess or pneumoperitoneum, interval appearing mild ascites, and dilated common and pancreatic ducts per the interpretation. Her laboratory data was negative for leukocytosis and her liver function tests were within normal limits other than a low ALT at 8. Respiratory PCR was positive for COVID. Following the CT scan findings, an ultrasound of the right upper quadrant was obtained showing dilated common bile duct and pancreatic ducts concerning for distal obstruction or sphincter dysfunction with a nonshadowing centimeter echogenic focus along the dependent portion of the gallbladder that was nonspecific per the report. She was admitted to the hospital under the medical service with consultation placed to general surgery for further recommendations given her diverticulitis. On examination, she was seen resting at the side of her bed. She complains of diffuse abdominal pain but that is worse on the left side. She additionally complains of a decreased appetite and associated intermittent nausea. She denies vomiting. She is currently receiving IV Rocephin and Flagyl. Her abdomen is soft, slightly rounded and is diffusely tender with palpation. Bowel sounds are present. No evidence of peritonitis. She denies ever having a colonoscopy in the past; she was scheduled for one this coming November. Review of Systems All other pertinent positives and negatives are present in the HPI. All other systems are reviewed as negative unless otherwise previously mentioned. Physical Exam Vitals and Measurements T: 37.0 C (Oral) TMIN: 37.0 C (Oral) TMAX: 37.7 C (Oral) HR: 95 RR: 18 BP: 118/68 SpO2: 91% HT: 160 cm WT: 61.4 kg BMI: 23.98 Weight Dosing Weight: 61.4 kg (09/23/21) Dosing Weight: 61.4 kg (09/23/21) General: Awake, alert and oriented x4. In no apparent distress. Able to answer questions appropriately and speak in full sentences. Sitting upright at the side of the bed. HEENT: Sclera anicteric. Heart: Regular rate and rhythm. S1 and S2 present. Lungs: Chest rise symmetrical. Respirations unlabored. Lungs clear/diminished upon auscultation. Abdomen: Soft, rounded and diffusely tender with palpation. No rigidity or guarding noted. Bowel sounds are active. Extremities: Freely moving. Psychiatric: Calm and cooperative. Lab Results 09/23 18:27 WBC: 9.3 Hgb: 10.3 L Hct: 30.4 L Platelet: 178 Neutrophil %: 85.8 H Glucose Level: 83 Sodium Level: 138 Potassium Level: 3.5 BUN: 15.0 Creatinine Lvl (s): 0.56 09/23 11:14 WBC: 8.1 Hgb: 11.8 L Hct: 34.5 Platelet: 185 Neutrophil %: 91.6 H Glucose Level: 124 H Sodium Level: 137 Potassium Level: 3.4 L BUN: 18.0 Creatinine Lvl (s): 0.82 Imaging Results and Diagnostics US Abdomen Limited Result Date: September 23, 2021 Verified By: IDALMIS SO MD CLINICAL STATEMENT: IMPRESSION: Dilated common bile duct and pancreatic ducts, concerning for distal obstruction or sphincter dysfunction. Consider further evaluation with MRCP or ERCP. Nonshadowing subcentimeter echogenic focus along the dependent portion of the gallbladder, nonspecific, could relate to a tiny cholelithiasis, minimal sludge or polyp. I have personally reviewed the images of this examination and agree with the resident's findings and interpretation. XR Chest 1 View Result Date: September 23, 2021 Verified By: CASTRO PARMAR MD CLINICAL STATEMENT: IMPRESSION: No acute cardiopulmonary process. CT Abd/Pelvis w/ IV Contrast Only Result Date: September 23, 2021 Verified By: SYLWIA PALMER MD CLINICAL STATEMENT: IMPRESSION: 1. Moderate diverticulitis similar to the prior examination without evidence of an abscess or pneumoperitoneum.2. Interval appearing mild ascites.3. Dilated common and pancreatic ducts. Correlate with alkaline phosphatase levels and ultrasound. Assessment/Plan Abdominal pain This patient is a 56-year-old female who was admitted to the hospital under the medical service on 09/23/2021 after she presented for evaluation of abdominal pain with associated nausea and fever. Patient was treated with 10 days worth of Cipro and Flagyl on outpatient basis when she was diagnosed with diverticulitis in August. She reports that she was feeling better for approximately 1 week after completing the antibiotics. CT scan imaging of the abdomen and pelvis was concerning for moderate diverticulitis similar to the prior exam without evidence of an abscess or pneumoperitoneum, there was also reports of interval appearing mild ascites and dilated common and pancreatic ducts per the radiologist. Laboratory data, vital signs, and I's/O have been reviewed. Patient is COVID-positive. No leukocytosis is present on her labs yesterday; no new labs this morning. Liver function tests were within normal limits other than a low ALT at 8. On examination, she complains of diffuse abdominal pain that is worse on her left side with palpation. She denies vomiting. Her abdomen is soft, slightly rounded, and her bowel sounds are present. There is no evidence of peritonitis on examination. She is currently receiving IV antibiotics with Rocephin and Flagyl. Plan: 1. Abdominal pain with diverticulitis Patient with recurrent abdominal pain following recent diverticulitis diagnosis. Agree with IV antibiotic administration at this time. Will allow patient to have a clear liquid diet as she tolerates. There are no plans for operative intervention at this time. Indications for operative intervention were discussed at the bedside with the patient. She voiced understanding and was in agreement with this plan. We will continue to follow along and monitor her serial abdominal exams 2. CT scan also showing dilated common and pancreatic ducts Liver function tests/alkaline phosphatase showing no elevation Will discuss this with Dr. Dyer 3. Medical management/treatment of COVID per the primary medical team 4. Encourage mobilization as able and hourly incentive spirometry use/coughing and deep breathing exercises Thank you for allowing us to participate in the care of this patient. The case has been discussed with Dr. Dyer. Please see his addendum for further details. Problem List/Past Medical History Diverticulitis Chronic back pain Procedure/Surgical History Nerve root: 09/13/13 Partial vulvectomy: 08/24/13 Cystoscopy: 08/20/13 Lymph node biopsy: 06/04/10 Laminectomy and discectomy: 2002 Laminectomy: 1997 Breast biopsy sample Cyst - diagnostic aspiration Vaginal hysterectomy Medications Inpatient bebtelovimab, 175 mg, Intravenous, Once Flagyl IVPB, 500 mg= 100 mL, IV Piggyback, q8h heparin 5000 units/mL injection, 5000 unit(s)= 1 mL, Subcutaneous, q8h hydrOXYzine hydrochloride 25 mg oral tablet, 25 mg= 1 tab(s), Oral, TID, PRN morphine, 2 mg= 1 mL, IV Push, q3h, PRN morphine, 5 mg= 1.25 mL, IV Push, q3h, PRN NS 1,000 mL, 1000 mL, Intravenous ondansetron, 4 mg= 2 mL, IV Push, q6h, PRN Rocephin, 2 gram(s)= 20 mL, IV Push (INT), qDay tiZANidine, 4 mg= 1 tab(s), Oral, QID Toradol, 15 mg= 1 mL, IV Push, q6h Home acetaminophen-hydrocodone 325 mg-7.5 mg oral tablet, 1 tab(s), Oral, q6hr hydrOXYzine hydrochloride 25 mg oral tablet, 25 mg= 1 tab(s), Oral, TID, PRN ibuprofen 600 mg oral tablet, 600 mg= 1 tab(s), Oral, q6hr, PRN, 1 refills tiZANidine 4 mg oral tablet, 4 mg= 1 tab(s), Oral, QID Tylenol PM Extra Strength oral tablet, 1 tab(s), Oral, qHS, PRN Allergies labetalol Social History Tobacco use: Denies Substance use: Denies Alcohol use: Denies Resides at home; daughter lives 5 minutes away Family History Asthma: Sister and Daughter. HTN - Hypertension: Sister. Heart disease: Sister. Immunizations tetanus/diphth/pertuss (Tdap) adult/adol: 0.5 mL (10/01/17) Digitally Signed by TOM TRUJILLO on 09/24/2021 01:44 PM [facility] 09-23-2021 Note ORIGINAL EXAMINATION: ONE XRAY VIEW OF THE CHEST 09/23/2021 6:37 pm COMPARISON: CT chest 09/12/2021 HISTORY: ORDERING SYSTEM PROVIDED HISTORY: Reason for Exam: COVID 19 infection FINDINGS: No focal opacity or large effusion. No pneumothorax. No overt pulmonary vascular congestion. Cardiomediastinal silhouette is within normal limits portable technique IMPRESSION: No acute cardiopulmonary process. Interpreted by: Castro Parmar Preliminary Report By: Castro Parmar Electronically signed By Castro Parmar Dictated Date: 09/23/2021 6:39:40 PM Prelim Date: 09/23/2021 6:40:48 PM Sign Date: 09/23/2021 6:40:48 PM Ordering Provider: PETER SOLER [facility] 09-23-2021 Note ORIGINAL EXAMINATION: ONE XRAY VIEW OF THE CHEST 09/23/2021 6:37 pm COMPARISON: CT chest 09/12/2021 HISTORY: ORDERING SYSTEM PROVIDED HISTORY: Reason for Exam: COVID 19 infection FINDINGS: No focal opacity or large effusion. No pneumothorax. No overt pulmonary vascular congestion. Cardiomediastinal silhouette is within normal limits portable technique IMPRESSION: No acute cardiopulmonary process. Interpreted by: Castro Parmar Preliminary Report By: Castro Parmar Electronically signed By Castro Parmar Dictated Date: 09/23/2021 6:39:40 PM Prelim Date: 09/23/2021 6:40:48 PM Sign Date: 09/23/2021 6:40:48 PM Ordering Provider: [facility] 09-23-2021 Note ORIGINAL EXAMINATION: RIGHT UPPER QUADRANT ULTRASOUND 09/23/2021 6:11 pm COMPARISON: CT abdomen pelvis earlier same day and 08/19/2021 HISTORY: ORDERING SYSTEM PROVIDED HISTORY: Reason for Exam: Dilated common bile duct and pancreatic duct on CT FINDINGS: LIVER: Liver measures 18.5 cm longitudinally, mildly enlarged. The liver demonstrates normal echogenicity without evidence of intrahepatic biliary ductal dilatation. BILIARY SYSTEM: No gallbladder-wall thickening on my measurements. A single 0.7 x 0.5 cm nonshadowing echogenic focus along the dependent portion of the gallbladder body. Negative sonographic Pacheco sign. Common bile duct is dilated up to 9 mm. RIGHT KIDNEY: Measures 11.9 x 5 x 5 cm. No hydronephrosis or nephrolithiasis. PANCREAS: Pancreatic duct is dilated to 3.8 mm. OTHER: No evidence of right upper quadrant ascites. IMPRESSION: Dilated common bile duct and pancreatic ducts, concerning for distal obstruction or sphincter dysfunction. Consider further evaluation with MRCP or ERCP. Nonshadowing subcentimeter echogenic focus along the dependent portion of the gallbladder, nonspecific, could relate to a tiny cholelithiasis, minimal sludge or polyp. I have personally reviewed the images of this examination and agree with the resident's findings and interpretation. Interpreted by: Idalmis So Preliminary Report By: Regina Huggins Electronically signed By Idalmis So Dictated Date: 09/23/2021 6:13:14 PM Prelim Date: 09/23/2021 6:20:54 PM Sign Date: 09/23/2021 6:33:22 PM Ordering Provider: [facility] 09-23-2021 Note ORIGINAL EXAMINATION: RIGHT UPPER QUADRANT ULTRASOUND 09/23/2021 6:11 pm COMPARISON: CT abdomen pelvis earlier same day and 08/19/2021 HISTORY: ORDERING SYSTEM PROVIDED HISTORY: Reason for Exam: Dilated common bile duct and pancreatic duct on CT FINDINGS: LIVER: Liver measures 18.5 cm longitudinally, mildly enlarged. The liver demonstrates normal echogenicity without evidence of intrahepatic biliary ductal dilatation. BILIARY SYSTEM: No gallbladder-wall thickening on my measurements. A single 0.7 x 0.5 cm nonshadowing echogenic focus along the dependent portion of the gallbladder body. Negative sonographic Pacheco sign. Common bile duct is dilated up to 9 mm. RIGHT KIDNEY: Measures 11.9 x 5 x 5 cm. No hydronephrosis or nephrolithiasis. PANCREAS: Pancreatic duct is dilated to 3.8 mm. OTHER: No evidence of right upper quadrant ascites. IMPRESSION: Dilated common bile duct and pancreatic ducts, concerning for distal obstruction or sphincter dysfunction. Consider further evaluation with MRCP or ERCP. Nonshadowing subcentimeter echogenic focus along the dependent portion of the gallbladder, nonspecific, could relate to a tiny cholelithiasis, minimal sludge or polyp. I have personally reviewed the images of this examination and agree with the resident's findings and interpretation. Interpreted by: Idalmis So Preliminary Report By: Regina Huggins Electronically signed By Idalmis So Dictated Date: 09/23/2021 6:13:14 PM Prelim Date: 09/23/2021 6:20:54 PM Sign Date: 09/23/2021 6:33:22 PM Ordering Provider: PETER OSORIO [facility] 09-23-2021 History and physical note Date of Service 09/23/2021 Chief Complaint Patient presents with abdominal pain, nausea and blood in her stool. Pt was recently treated for diverticulitis. History of Present Illness 56-year-old female with no significant medical illness in the past apart from recent diagnosis of acute sigmoid diverticulitis and 09/07/2021, coming in today with continuous and worsening of lower abdominal pain, nausea, vomiting and constipation for the past 1 week. Patient recently visited ER on 09/07, when she was diagnosed with acute sigmoid diverticulitis and sent home with p.o. ciprofloxacin and Flagyl. She continued to have the pain. However, over the past 1 week, there was worsening of lower abdominal pain,all across lower abdomen, 8/10 at rest and 10/10 with movement, dull aching pain, no radiation, aggravated by movement, not relieved by simple analgesics. It was associated with nausea and vomiting and loss of appetite. She also had constipation over the past week. However, she took Ducolax x 1 and had 1 loose bowel movement yesterday. She denied bleeding manifestations including hematemesis, melena or hematochezia. No recent travel contact history was reported. On arrival to ER, patient was febrile at 38.6, heart rate 101/min, respiratory rate 20, blood pressure 97/62, saturating 93% on room air. CBC shows no leukocytosis with hemoglobin 11.8. BMP was unremarkable with creatinine 0.82. UA showed trace bacteriuria. Lactic acid was 1.7. CT abdomen revealed a moderate diverticulitis without abscess or pneumoperitoneum. Dilated common and pancreatic ducts were also present. Patient got 1 L bolus of normal saline, analgesics and 1 dose of Cifran and Flagyl in ER and then admitted to [facility]. Review of Systems Constitutional: denies Fevers and chills , no loss of appetite, denies fatigue or weight change Eyes: Denies double vision/blurring of vision/flashes or floaters Ears, Nose, Mouth & Throat: Denies any tinnitus/hearing loss/sinus congestion/nasal discharge/sore throat Cardiovascular: Denies any chest pain/shortness of breath/hemoptysis/palpitations/marianela phoresis Respiratory: Denies any shortness of breath/cough/productive sputum/hemoptysis Gastrointestinal: Denies any abdominal pain/nausea/vomiting/diarrhea/lolita tochezia/hematemesis/melena Genitourinary: Denies any dysuria/hematuria Musculoskeletal: denies joint pain or joint swelling or deformities Skin: No ulcers or rash Neurological: denies Weakness or numbness of extremities/facial droop/loss of balance Endocrine: Denies any heat or cold intolerance/polyuria/polydipsia/po lyphagia Hematologic/Lymphatic: denies lymphadenopathy Allergic/Immunologic: Denies any seasonal allergy/sneezing/tearing from the eyes Physical Exam Vitals and Measurements T: 38.6 C (Oral) HR: 82 RR: 18 BP: 101/44 SpO2: 95% WT: 61.4 kg Weight Dosing Weight: 61.4 kg (09/23/21) General Appearance: Patient comfortably lying on bed, not in acute distress Head: Normocephalic, atraumatic EENT: PERRLA, Neck: Supple, no JVD, no mass Cardiac: s1s2,RRR, no murmurs or rubs or gallops Lungs: Clear to auscultation bilaterally, no wheeze or rhonchi or crackles Abdomen: Soft , no distention, significant tenderness across the lower abdomen, no guarding or rigidity, no rebound tenderness, bowel sounds are present and normal, no hepatosplenomegaly, no CVA tenderness Musculoskeletal: Full ROM , no gross deformities Extremities: No rash or ulcers or pedal edema Neurological: Alert, oriented x 3, grossly no focal neurological deficits Skin: No rash or ulcers Psychiatric: Normal mood and affect Lab Results 09/23 11:14 WBC: 8.1 Hgb: 11.8 L Hct: 34.5 Platelet: 185 Neutrophil %: 91.6 H Glucose Level: 124 H Sodium Level: 137 Potassium Level: 3.4 L BUN: 18.0 Creatinine Lvl (s): 0.82 Imaging Results and Diagnostics CT Abd/Pelvis w/ IV Contrast Only Result Date: September 23, 2021 Verified By: SYLWIA PALMER MD CLINICAL STATEMENT: IMPRESSION: 1. Moderate diverticulitis similar to the prior examination without evidenceof an abscess or pneumoperitoneum.2. Interval appearing mild ascites.3. Dilated common and pancreatic ducts. Correlate with alkaline phosphataselevels and ultrasound. Assessment/Plan Positive SIRS Acute sigmoid diverticulitis Normocytic anemia History of chronic back pain and back surgery Due to prophylaxis Full CODE STATUS Patient met criteria for SIRS initially. After fluid bolus, her vitals improved and now patient is stable. It is likely secondary to dehydration. Continue maintenance fluids at 100/h. Patient has acute sigmoid diverticulitis. There is no abscess or pneumoperitoneum on CT abdomen today. We will keep n.p.o., give 1 more liter bolus of normal saline start maintenance fluid at 100/h. Adequate pain control with Toradol and morphine based on the pain scale. Empirically treat with ceftriaxone and Flagyl. We will get blood culture. Patient has mild normocytic anemia on presentation. Etiology is unclear. We will monitor the hemoglobin and possible work-up later. Will review and resume the other home medications as tolerated DVT prophylaxis subcutaneous heparin Full CODE STATUS Problem List/Past Medical History Ongoing Anemia Arthritis Asthma Back pain Chronic pain Condyloma COPD - Chronic obstructive pulmonary disease Depression Emphysema of lung Glasses Hematuria Herniation of intervertebral disc Insomnia Irritable bowel syndrome Migraine Neck Osteoporosis Partial vulvectomy Poor venous access SOBOE - Shortness of breath on exertion Urgency - urination Urinary calculus Urinary incontinence Vision impairment Vulvar lesion Historical DVT - Deep vein thrombosis Pneumonia Procedure/Surgical History Nerve root: 09/13/13 Partial vulvectomy: 08/24/13 Cystoscopy: 08/20/13 Lymph node biopsy: 06/04/10 Laminectomy and discectomy: 2002 Laminectomy: 1997 Breast biopsy sample Cyst - diagnostic aspiration Vaginal hysterectomy Medications Home Medications (5) Active acetaminophen-hydrocodone 325 mg-7.5 mg oral tablet 1 tab(s), Oral, q6hr hydrOXYzine hydrochloride 25 mg oral tablet 25 mg = 1 tab(s), PRN, Oral, TID ibuprofen 600 mg oral tablet 600 mg = 1 tab(s), PRN, Oral, q6hr tiZANidine 4 mg oral tablet 4 mg = 1 tab(s), Oral, QID Tylenol PM Extra Strength oral tablet 1 tab(s), PRN, Oral, qHS Allergies labetalol Social History Tobacco Nicotine Use: Former smoker, quit more than 30 days ago., 08/09/2020 Smoking History of [id number] history of smoking, quit 1 year ago Denies alcohol and substance abuse Currently lives with her son. Family History Asthma: Sister and Daughter. HTN - Hypertension: Sister. Heart disease: Sister. Immunizations tetanus/diphth/pertuss (Tdap) adult/adol: 0.5 mL (10/01/17) Code Status No qualifying data available. Digitally Signed by PETER SOLER MD on 09/23/2021 03:00 PM [facility] 09-23-2021 Evaluation + Plan note Extrac audie from: Title:History and Physical Author:PETER SOLER MD Date:09/23/21 Positive SIRS Acute sigmoid diverticulitis Normocytic anemia History of chronic back pain and back surgery Due to prophylaxis Full CODE STATUS Patient met criteria for SIRS initially. After fluid bolus, her vitals improved and now patient is stable. It is likely secondary to dehydration. Continue maintenance fluids at 100/h. Patient has acute sigmoid diverticulitis. There is no abscess or pneumoperitoneum on CT abdomen today. We will keep n.p.o., give 1 more liter bolus of normal saline start maintenance fluid at 100/h. Adequate pain control with Toradol and morphine based on the pain scale. Empirically treat with ceftriaxone and Flagyl. We will get blood culture. Patient has mild normocytic anemia on presentation. Etiology is unclear. We will monitor the hemoglobin and possible work-up later. Will review and resume the other home medications as tolerated DVT prophylaxis subcutaneous heparin Full CODE STATUS Addendum by RENEE RAJAN MD on September 24, 2021 14:22:42 EDT Medical Teaching Service d/w senior resident patient to be seen during teaching rounds jbmd Future Scheduled Tests Radiology* MRI Brain w/ + w/o Contrast 07/15/21 [facility] 07-10-2022 Note ORIGINAL EXAMINATION: CT OF THE ABDOMEN AND PELVIS WITH CONTRAST TECHNIQUE: CT of the Abdomen and Pelvis with intravenous contrast was performed. Axial, sagittal and coronal reformatted images were reviewed. Low dose CT acquisition technique included one of the following options: 1. Automated exposure control, 2. Adjustment of the MA and/or KV according to patient size, or 3. Use of iterative reconstruction. COMPARISON: CT abdomen and pelvis 08/19/2021 HISTORY: ORDERING SYSTEM PROVIDED HISTORY: Reason for Exam: PT C/O ABD PAIN RECTAL PAIN PRESSURE NAUSEA abdominal pain FINDINGS: Support devices: None lobe subsegmental atelectasis is demonstrated. Lower thorax: The previously seen 3 mm left lower lobe pulmonary nodule is not conspicuous. Interval left anterior lower Solid organs: The liver, spleen, pancreas, and adrenal glands are unremarkable. Biliary system: The common bile duct measures 10 mm. No evidence of choledocholithiasis, extrinsic mass compression or a pancreatic head mass. A mildly dilated pancreatic duct is noted. Correlate with alkaline phosphatase levels. Further evaluation with ultrasound is recommended. Genitourinary: Nonobstructing punctate calculi are located within a left inferior pole moiety. Small right renal cysts are present. No evidence of a space occupying soft tissue mass. The urinary bladder is low lying (cystocele). Gastrointestinal: The stomach is collapsed. The small bowel is nonobstructed. Fluid-filled loops of small bowel are noted. Moderate fluid within the proximal colon is seen. Again demonstrated is moderate diverticulitis. No discrete abscess or drainable fluid collection is seen. Appendix: The appendix is not visualized. Correlate with surgical history. Peritoneum: Interval appearing mild ascites. No evidence of pneumoperitoneum or abscess. Abdominal wall: No evidence of a ventral wall hernia. Pelvic organs: The uterus is surgically absent. Lymph nodes: No adenopathy by size criteria. Vascular structures: No evidence of an abdominal aortic aneurysm. Atherosclerotic calcifications of the aorta and iliac arteries are present.. Osseous and soft tissue structures: Bone windows demonstrate no suspicious osteolytic or osteoblastic lesions. No fracture identified. Widespread degenerative changes throughout the lumbar spine and to lesser extent thoracic spine noted. Degenerative changes involve the bilateral, left greater than right sacroiliac joints. IMPRESSION: 1. Moderate diverticulitis similar to the prior examination without evidence of an abscess or pneumoperitoneum. 2. Interval appearing mild ascites. 3. Dilated common and pancreatic ducts. Correlate with alkaline phosphatase levels and ultrasound. Interpreted by: Sylwia Palmer MD Preliminary Report By: Sylwia Palmer MD Electronically signed By Sylwia Palmer MD Dictated Date: 09/23/2021 12:33:08 PM Prelim Date: 09/23/2021 12:42:07 PM Sign Date: 09/23/2021 12:42:07 PM [facility]ing Provider[facility] Note ORIGINAL EXAMINATION: CT OF THE ABDOMEN AND PELVIS WITH CONTRAST TECHNIQUE: CT of the Abdomen and Pelvis with intravenous contrast was performed. Axial, sagittal and coronal reformatted images were reviewed. Low dose CT acquisition technique included one of the following options: 1. Automated exposure control, 2. Adjustment of the MA and/or KV according to patient size, or 3. Use of iterative reconstruction. COMPARISON: CT abdomen and pelvis 08/19/2021 HISTORY: ORDERING SYSTEM PROVIDED HISTORY: Reason for Exam: PT C/O ABD PAIN RECTAL PAIN PRESSURE NAUSEA abdominal pain FINDINGS: Support devices: None lobe subsegmental atelectasis is demonstrated. Lower thorax: The previously seen 3 mm left lower lobe pulmonary nodule is not conspicuous. Interval left anterior lower Solid organs: The liver, spleen, pancreas, and adrenal glands are unremarkable. Biliary system: The common bile duct measures 10 mm. No evidence of choledocholithiasis, extrinsic mass compression or a pancreatic head mass. A mildly dilated pancreatic duct is noted. Correlate with alkaline phosphatase levels. Further evaluation with ultrasound is recommended. Genitourinary: Nonobstructing punctate calculi are located within a left inferior pole moiety. Small right renal cysts are present. No evidence of a space occupying soft tissue mass. The urinary bladder is low lying (cystocele). Gastrointestinal: The stomach is collapsed. The small bowel is nonobstructed. Fluid-filled loops of small bowel are noted. Moderate fluid within the proximal colon is seen. Again demonstrated is moderate diverticulitis. No discrete abscess or drainable fluid collection is seen. Appendix: The appendix is not visualized. Correlate with surgical history. Peritoneum: Interval appearing mild ascites. No evidence of pneumoperitoneum or abscess. Abdominal wall: No evidence of a ventral wall hernia. Pelvic organs: The uterus is surgically absent. Lymph nodes: No adenopathy by size criteria. Vascular structures: No evidence of an abdominal aortic aneurysm. Atherosclerotic calcifications of the aorta and iliac arteries are present.. Osseous and soft tissue structures: Bone windows demonstrate no suspicious osteolytic or osteoblastic lesions. No fracture identified. Widespread degenerative changes throughout the lumbar spine and to lesser extent thoracic spine noted. Degenerative changes involve the bilateral, left greater than right sacroiliac joints. IMPRESSION: 1. Moderate diverticulitis similar to the prior examination without evidence of an abscess or pneumoperitoneum. 2. Interval appearing mild ascites. 3. Dilated common and pancreatic ducts. Correlate with alkaline phosphatase levels and ultrasound. Interpreted by: Sylwia Palmer MD Preliminary Report By: Sylwia Palmer MD Electronically signed By Sylwia Palmer MD Dictated Date: 09/23/2021 12:33:08 PM Prelim Date: 09/23/2021 12:42:07 PM Sign Date: 09/23/2021 12:42:07 PM Ordering Provider: [facility]06-06-2022 Hospital Discharge instructions Patient Education 08/19/2021 23:24:33 Diverticulitis Diverticulitis Some people get pouches along the wall of the colon as they get older. The pouches, called diverticuli, usually cause no symptoms. If the pouches become blocked, you can get an infection. This infection is called diverticulitis. It causes pain in your lower abdomen and fever. If not treated, it canbecome a serious condition, causing an abscess to form inside the pouch. The abscess may block the intestinal tract even or rupture, spreading infection throughout the abdomen. When treatment is started early, oral antibiotics alone may be enough to cure diverticulitis. This method is tried first. But, if you don't improve or if your condition gets worse while using oral antibiotics, you may need to be admitted to the hospital for IV antibiotics. Severe cases may require surgery. Home care The following guidelines will help you care for yourself at home: During the acute illness, rest and follow your healthcare provider's instructions about diet. Sometimes you will need to follow a clear liquid diet to rest your bowel. Once your symptoms are better, you may be told to follow a low-fiber diet for some time. Include foods like: oFlake cereal, mashed potatoes, pancakes, waffles, pasta, white bread, rice, applesauce, bananas, eggs, fish, poultry, tofu, and cooked soft vegetables Take antibiotics exactly as instructed. Don't miss any doses or stop taking the medication, even ifyou feel better. Monitor your temperature and tell your healthcare provider if you have rising temperatures. Preventing future attacks Once you have an episode of diverticulitis, you are at risk for having it again. After you have recovered from this episode, you may be able to lower your risk by eating a high-fiber diet (20 gm/day to 35 gm/day of fiber). This cleans out the colon pouches that already exist and may prevent new ones from forming. Foods high in fiber include fresh fruits and edible peelings, raw or lightly cooked vegetables, whole grain cereals and breads, dried beans and peas, and bran. Other steps that can help prevent future attacks include: Take your medicines, such as antibiotics, as your healthcare provider says. Drink 6 to 8 glasses of water every day, unless told otherwise. Use a heating pad or hot water bottle to help abdominal cramping or pain. Begin an exercise program. Ask your healthcare provider how to get started. You can benefit from simple activities such as walking or gardening. Treat diarrhea with a bland diet. Start with liquids only; then slowly add fiber over time. Watch for changes in your bowel movements (constipation to diarrhea). Avoid constipation by eating a high fiber diet and taking a stool softener if needed. Get plenty of rest and sleep. Follow-up care Follow up with your healthcare provider as advised or sooner if you are not getting better in the next 2 days. When to seek medical advice Call your healthcare provider right away if any of these occur: Fever of 100.4 F (38 C) or higher, or as directed by your healthcare provider Repeated vomiting or swelling of the abdomen Weakness, dizziness, light-headedness Pain in your abdomen that gets worse, severe, or spreads to your back Pain that moves to the right lower abdomen Rectal bleeding (stools that are red, black or maroon color) Unexpected vaginal bleeding 1610-1814 [employer] [address] [place] [address]21. All rights reserved. This information is not intended as a substitute for professional medical care. Always follow yourhealthcare professional's instructions. Follow Up Care 08/19/2021 20:12:44 With:MEDICAL, CLINIC Address: [address] [place] [address]- When:2-4 days With:[facility] Address: [address] [place] [id number] [phone] When:2-4 days [facility] 05-01-2022 Evaluation + Plan note Future Scheduled Tests Radiology* MRI Brain w/ + w/o Contrast 07/15/21 [facility] 09-26-2021 [facility] Medical Records Department [address] [place] [id number] Discharge Summary 12/10/20 1846 MR#: [id number] Acct: [id number] Name: CLARAARLENE BRANDT Hamzah Rep #: [id number] : 1965 55 From: Raul Chapman DO PCP: Dr. Luis Felipe Monsalve MD Status:DIS IN Location: [place] [id number] Providers Date of Admission: 12/08/20 Date of Discharge: 12/10/20 Primary Care Physician: Dr. Luis Felipe Monsalve MD Reason For Visit: INTRACTABLE MIGRAINE, SUSPECTED CONCURENT CERVICAL Diagnosis Discharge Diagnosis (1) Cephalalgia: Status: Acute Code(s): R51.9 - Headache, unspecified Plan: 1. Intractable migraine cephalgia #2 degenerative disc disease of the cervical spine #3 chronic pain syndrome secondary to degenerative disc disease of the cervical spine #4 essential hypertension Medications at Discharge Home Medications escitalopram oxalate 20 mg PO DAILY 12/08/20 hydrocodone-acetaminophen 1 tab PO Q8H PRN PRN 12/08/20 hydroxyzine HCl 25 mg PO TID PRN PRN 12/08/20 tizanidine 4 mg PO TID PRN 12/08/20 dexamethasone 4 mg PO DAILY #5 tab 12/10/20 divalproex [Depakote] 1,000 mg PO QHS #14 tab 12/10/20 gabapentin 100 mg PO TIDCM #15 cap 12/10/20 metoprolol tartrate 50 mg PO BID #14 tab 12/10/20 ondansetron HCl [Zofran] 4 mg PO Q6H PRN #10 tab 12/10/20 Hospital Course Operations None Procedures None Summary of Care Provided Minutes Spent on Discharge: 30 Hospital Course: This 55-year-old white female was seen in the emergency room at [facility] with a chief complaint of migraine cephalgia, her blood pressure was also noted to be elevated. Patient was on no blood pressure medications. Patient also complained of neck pain, she had been seeing pain management as an outpatient for her neck pain and was on pain medications. Work-up in the emergency room included a CTA of her head neck which was within normal limits, patient was given medication for her migraine without relief. Patient was admitted to [place] [address], placed on IV Depakote, given Neurontin, and IV Decadron. Patient underwent an MRI of the brain whic h was initially read out as showing areas suspicious for encephalitis, I requested that the MRI of the brain be over read by another radiologist who did not agree with the first interpretation and f elt that there was some chronic changes present on the patient's MRI, it was recommended that the chelly short's MRI be repeated in 6 months to a year. Patient's MRI of the cervical spine showed degenerat lolita disc disease with an area of disc protrusion at C7/T1. Patient continued to have headache durin g her hospital stay, I added metoprolol for her blood pressure. Even though the patient stated that she had a headache, during the time of my examinations, patient was resting quietly and did not see m in any distress. On 12/10/2020, patient was seen and examined: On examination she appeared in good health and spirits, she does not appear to be in any distress. Vital signs as documented. Skin warm and dry and without overt rashes. Neck without JVD, thyroid appears normal, trachea is midline, neck is supple. Lungs clear, normal air movement was noted. Heart exam notable for regular rhythm, normal sounds and absence of murmurs, rubs or gallops. Abdomen unremarkable and without evidence of organomegaly, masses, or abdominal aortic enlargement, bowel sounds are present in all 4 quadrants, no abdominal tenderness was noted. Extremities nonedematous, no cyanosis was noted, no clubbing was noted. Neuro: Cranial nerves II through XII are grossly intact, no focal motor deficits were noted, sen sation to light touch and pinprick is intact, motor exam 5/5 throughout. Psych: Patient is alert an d oriented x3, she does not appear anxious or depressed, she does not appear agitated. Patient appeared stable for discharge on 12/10/2020, patient stated that she had an appointment with her pain management doctor on 12/11/2020, I encouraged her to make that appointment and to also follow-up with her PCP. 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 Electronically Signed: Les Reyes MD at 14:44 EDT Tel , Service support , ADDENDUM: 12/09/20 1950 D/C Instructions Discharge Diet: No restrictions Weight Bearing Status: Full weight bearing Meaningful Use Info Meaningful Use Diagnoses (Choose all that apply): None applicable Discharge Plan Admission Admit Date/Time: 12/08/20 21:01 Primary Reason for Your Visit: mi (more content not included)...[facility] No data available for this section [facility] Hospital Discharge instructions No data available for this section [facility] Progress note No data available for this section [facility] Summary Purpose Family History No Family History Records FoundNo Family History Records FoundNo Family History Records Found No data available for this section No data available for this section No Family History Records FoundNo Family History Records Found Advance Directives No Advanced Directives Records FoundNo Advanced Directives Records FoundNo Advanced Directives Records FoundNo Advanced Directives Records FoundNo Advanced Directives Records Found Additional Source Comments INFORMATION SOURCE (unrecogn ized section and content) DATE CREATED AUTHOR 12/28/2020 [facility] DATE CREATED AUTHOR AUTHOR'S ORGANIZ ATION 05/03/2021 [facility] DATE CREATED AUTHOR AUTHOR'S ORGANIZ ATION 07/19/2023 [facility] DATE CREATED AUTHOR AUTHOR'S ORGANIZ ATION 01/04/2025 [facility] DATE CREATED AUTHOR AUTHOR'S ORGANIZ ATION 01/20/2025 [facility] Care Team (unrecognized sect ion and content) Care Team Personnel Name: ELLIOTT GILLIS DO Position: Resident Med Service: MTS Member Role: Primary Care Physician Address: Address: [address] [place] [address] Care Team Related Persons Name: ERNESTO ELIZABETH Name: ERNESTO ELIZABETH Name: ERNESTO ELIZABETH Name: ZIA COLE Name: ZIA COLE Name: GUILLAUME COLE Care Team Personnel Name: ELLIOTT GILLIS DO Position: Resident Med Service: MTS Member Role: Primary Care Physician Address: Address: [address] [place] [address] Care Team Related Persons Name: ERNESTO ELIZABETH Name: ERNESTO ELIZABETH Name: ERNESTO ELIZABETH Name: ZIA COLE Name: ZIA COLE Name: GUILLAUME COLE Care Team Personnel Name: ELLIOTT GILLIS DO Position: Resident Member Role: Primary Care Physician Address: Address: [address] [place] [address] Care Team Related Persons Name: ERNESTO ELIZABETH Name: ERNESTO ELIZABETH Name: ERNESTO ELIZABETH Name: ZIA COLE Name: CHAPITO COLESSICA Name: GUILLAUME COLE Patient Care team informatio n (unrecognized section and content) Care Team Personnel Name: NERISSA AN MD Position: Resident Member Role: Primary Care Physician Address: Address: [address] [place] [address] Care Team Related Persons Name: ERNESTO ELIZABETH Name: ERNESTO ELIZABETH Name: ERNESTO ELIZABETH Name: ZIA COLE Name: ZIA COLE Name: GUILLAUME COLE FOR RECORDS PERTAINING TO PATIENTS WHO ARE OR HAVE BEEN ENROLLED IN A CHEMICAL DEPENDENCY/SUBSTANCEABUSE PROGRAM, SOME INFORMATION MAY BE OMITTED. This clinical summary was aggregated from multiple sources. Caution should be exercised in using it in the provision of clinical care. This summary normalizes information from multiple sources, and as a consequence, information in this document may materially change the coding, format and clinical context of patient data. In addition, data may be omitted in some cases. CLINICAL DECISIONS SHOULD BE BASED ON THE PRIMARY CLINICAL RECORDS. [facility] [employer], [facility]. provides no warranty or guarantee of the accuracy or completeness of information in this document.
== END | disposition home or self-care (01) ==
DX: M54.16 Radiculopathy, lumbar region (principal)
CPT/HCPCS: 72148